=== PATIENT | female | born 1945 | race Caucasian/White ===

== ENCOUNTER 2023-12-08 16:37 | Inpatient (IN) ==
--- NOTE | 2023-12-08 16:48 | ED Triage Note ---
Date of Service December 08, 2023 Provider in Triage Author: Dorothy Mcneil History of Present Illness This patient was briefly evaluated while in triage. An abbreviated physical exam was performed. This patient is a 78-year-old Female who presents to the ED for evaluation of lightheadedness and dizziness. Also having trouble walking by herself because of the symptoms. Symptoms started Friday afternoon. Went to the [facility] on Friday. She said she had blood work, EKG, and a CT scan of her head without contrast that was normal other than an elevated troponin. She was admitted overnight and they wanted to do an MRI, but she has a pacemaker so they couldn't do the MRI. The patient states that she didn't think that she was getting the care she needed so she signed out AMA and came to our ER. They did not do any contrast with the CT. Denies chest pain, SOB, abdominal pain, nausea, or vomiting. Physical Exam GENERAL: Non-toxic and in no acute distress. HEENT: Pupils equal. No obvious scleral icterus. HEART: Regular rate and rhythm. LUNGS: Clear to auscultation. No accessory muscle use. ABDOMEN: Soft, non-tender. NEURO: Alert and oriented. No obvious neurological deficits on quick neuro exam. Initial orders for labs and / or imaging were placed and patient was placed in the waiting area until a bed is available. Please see further documentation for the full ED course. MDM / Impression Impression Impression: Ataxia, Ambulatory dysfunction, Elevated troponin, Lightheadedness
[2023-12-08] MEDS: SODIUM CHLORIDE 0.9% 500 ML IV STA (17:06)
[2023-12-08 17:28] LABS: Basophils # (auto) 0.04 K/uL (0.00-0.20); Basophils % (auto) 0.4 %; Eosinophils # (auto) 0.02 K/uL (0.00-0.50); Eosinophils % (auto) 0.2 %; Hematocrit (blood only) 42.9 % (37.0-47.0); Hemoglobin 14.7 g/dl (12.0-16.0); Immature Granulocytes # (auto) 0.02 K/uL (0.01-0.20); Immature Granulocytes % (auto) 0.2 %; Lymphocytes # (auto) 0.93 K/uL (1.20-3.40); Lymphocytes % (auto) 10.1 %; Mean Corpuscular Hgb Conc 34.3 g/dL (32.0-36.0); Mean Corpuscular Volume 96.2 fL (80.0-100.0); Mean Platelet Volume 11.7 fL (9.4-12.4); Monocytes % (auto) 10.9 %; Neutrophils # (auto) 7.16 K/uL (1.40-6.50); Neutrophils % (auto) 78.2 %; Platelet Count 277 K/uL (130-400); RDW Coefficient of Variation 12.2 % (11.5-14.5); RDW Standard Deviation 43.1 fL (36.4-46.3); Red Blood Count 4.46 M/uL (4.20-5.40); White Blood Count 9.17 K/ul (4.8-10.8)
--- NOTE | 2023-12-08 17:47 | XRay Report ---
XR chest 1V portable CLINICAL HISTORY: Chest pain, nonspecific TECHNIQUE: Single frontal radiograph of the chest was obtained. Comparison: None available at the time of this dictation. FINDINGS: An implanted pacemaker is seen. Cardiomegaly is noted. The lungs are clear. No evidence of pleural ef fusion or pneumothorax. IMPRESSION: No acute chest disease. Cardiomegaly is noted. ACT 112: Negative or not required by law. Electronically signed by: Bowen John M.D. 12/08/2023 5:45 PM
[2023-12-08 17:48] LABS: Alanine Aminotransferase 31 U/L (7-52); Albumin Globulin Ratio 1.2 (0.9-2); Albumin Level 4.3 gm/dl (3.4-5.0); Alkaline Phosphatase 74 U/L (34-104); Anion Gap 10 (3-11); Aspartate Aminotransferase 20 U/L (13-39); BUN Creatinine Ratio 20.6 (10-20); Bilirubin,Total 0.7 mg/dl (0.2-1.0); Blood Urea Nitrogen 13 mg/dl (6-23); Calcium 9.7 mg/dl (8.6-10.3); Carbon Dioxide 29 mmol/L (21-32); Chloride 104 mmol/L (98-107); Est GFR (Non-African American) 87.1 ml/min; Globulin 3.5 gm/dl (2.5-4.0); Glucose 104 mg/dl (70-99(Fasting)); Lipase 27 U/L (11-82); Magnesium 1.8 mg/dl (1.7-2.4); Potassium 3.7 mmol/L (3.5-5.1); Sodium 143 mmol/L (136-145); Total Protein 7.8 gm/dl (6.0-8.3)
[2023-12-08 17:54] LABS: Troponin I High Sensitivity 21.7 pg/ml (0-14)
[2023-12-08 18:04] LABS: Thyroid Stimulating Hormone 2.426 uIu/ml (0.300-4.500)
[2023-12-08 18:06] LABS: Partial Thromboplastin Ratio 1.1; Partial Thromboplastin Time 30 Seconds (21-31)
[2023-12-08] MEDS: OPTIRAY 320 125ml IV ONE (18:33)
--- NOTE | 2023-12-08 18:58 | CT Scan Report ---
CT angio neck with con, CT head/brain wo con, CT angio head w con CLINICAL HISTORY: Dizziness TECHNIQUE: Contiguous axial CT images of the head were acquired from the base of the skull to the mitchell tiana without intravenous contrast administration. CT angiography of the head and neck was performed f ollowing intravenous administration of iodinated contrast. Coronal and sagittal MIPS were obtained fr om the axial data set and were submitted for review. Automated dose lowering techniques and/or adjus tment according to patient size were utilized for this examination. All measurements were calculated based on NASCET criteria. CT DOSE: 873.74 mGy.cm Comparison: None available at the time of this dictation. FINDINGS: CT head: There is no acute intracranial hemorrhage or evidence of acute territorial infarction. No sh ift of the midline structures, mass effect, or extra-axial abnormalities are shown. Small thyroid nodules are seen which do not require follow-up by ACR criteria. Scarring is seen in th e bilateral apices. CTA Neck: A 3 vessel aortic arch is shown. There is no significant atherosclerotic plaque in the aor tic arch or the origins of the innominate, left common carotid, and left subclavian arteries. The co mmon carotid, external carotid, cervical segments of the internal carotid arteries, and the cervical segments of the vertebral arteries are patent without hemodynamically significant stenosis. The left vertebral artery is dominant. Tortuous course of the bilateral carotid arteries noted. CTA Head: The anterior and posterior cerebral circulations are patent. origin of the left post erior cerebral artery is seen. IMPRESSION: 1. No acute intracranial hemorrhage, evidence of acute territorial infarction, or other acute intrac ranial disease process. 2. No occlusion, hemodynamically significant stenosis, or dissection in the major cervical arteries. 3. No occlusion, hemodynamically significant stenosis, aneurysm, dissection, or arteriovenous malfor mation in the major intracranial arteries. Assessment of stenosis of the internal carotid arteries is based on NASCET criteria. ACT 112: Negative or not required by law. Electronically signed by: Bowen John M.D. 12/08/2023 6:56 PM
--- NOTE | 2023-12-08 20:24 | Emergency Department Note ---
Impression & Plan Ataxia, Ambulatory dysfunction, Elevated troponin, Lightheadedness ED Provider Note Name: ROSELINE PEREZ Age: 78 Sex: Female Arrives Via: Walk-In Informant: Patient and friend ED Provider: Edouard Boles MD Chief Complaint: Lightheadedness Impression: As per impressions above Medical Decision Making: Pleasant 78-year-old female arrives for evaluation of ataxia. Patient with essentially 72 hours of symptoms. She been admitted to [facility] for the last 48 hours awaiting an MRI however after not getting it done she left AMA and came to this facility. Patient notes that she has been dealing with difficulty walking straight sudden onset 3 days ago. There is no indication of tPA. She has an NIH of 0 at this time. She is able to ambulate to the bathroom without significant difficulty. No significant chest pain however given symptoms EKG and troponin was obtained. Interestingly troponin was elevated thus repeat was obtained which is further elevated. She is not having any specific chest pain and troponin is not quite to the point where I think we need to start heparin. She was given a full dose aspirin for neuro and cardio protectant measures. She is essentially asymptomatic while at rest and sitting in the bed. Discussed this with hospitalist will bring her in for further management. Fortunately at this time CT of the head is negative and will defer further imaging to hospitalist. I did discuss findings of pacemaker interrogation with Marcial team. Fortunately no evidence of dysrhythmia or acute abnormality at this time to describe her symptoms. Triage/Nursing Notes reviewed by Me Differential:Infection, dehydration, metabolic abnormality, hypo/hyperglycemia, electrolyte disturbance, anemia, hypoxia, cardiac sources, intracerebral event, toxicologic, neurologic, as well as other pathologies. Vital Signs: reviewed and remarkable for mild hypertension on arrival Interventions: Aspirin 324 mg p.o., normal saline bolus Labs:ED labs Reviewed by me and remarkable for elevated troponin Imaging:CT of the head without contrast as per my informal interpretation no evidence of intracranial hemorrhage or mass effect. CT angiography of the head and neck as per radiologist no acute findings. 1 view chest x-ray as per my interpretation no infiltrate, effusion or pneumothorax appreciated. EKG:As per my interpretation. Indication strokelike symptoms. Atrial sensed ventricular rhythm at 83 bpm with QTc 533. No ectopy nor ischemia appreciated. No previous EKG for comparison. Cardiac/Tele Monitoring: Cardiac Monitoring: An Order was placed for continuous cardiac monitoring. The monitor shows a rate of 80 with a paced rhythm. Consults:Dr Francisca Yang Hospitalist consulted who will bring patient in for further management. Discussed with pacemaker team who note no acute abnormality consistent with symptoms patient is having Plan: Disposition:Hospitalization. Condition: Good History of Present Illness: 78-year-old female arrives for evaluation of lightheadedness. Patient notes for the last 3 days she has been having difficulty ambulating straight and feeling lightheaded especially when she stands. Denies any specific chest pain, palpitation, shortness of breath, headache, focal neurologic deficits, urinary symptoms, abdominal pain, back pain or any other concerning signs or symptoms. She states she has been feeling well up until Friday and it was relatively sudden onset. Patient notes she was evaluated at [facility] and hospitalized on Friday afternoon for this. They did give her a dose of meclizine she says it did nothing. She denies any vertiginous symptoms and has not had any spinning vision. Patient notes that she was there until this afternoon awaiting an MRI. Unfortunately they had yet to get the MRI so she left AGAINST MEDICAL ADVICE and came to this facility for further evaluation. Denies any current symptoms other than the persistent lightheadedness and trouble walking in a straight line. Past Medical History:Bradycardia with pacemaker, hypertension, hyperlipidemia. Denies history of stroke or ACS. Home Medications:Metoprolol amongst others Allergies:nkda Vitals:Blood Pressure: 160/75, Pulse 75, RR 18, T 36.7C, O2 98% on RA Physical Exam: GENERAL: Patient is well appearing and in minimal distress. HEENT: AT/NC, normal TMs, normal TM bilateral RESPIRATORY: No dyspnea. Clear to auscultation and equal bilaterally. CARDIOVASCULAR: Regular rate and rhythm.No murmur appreciated. GASTROINTESTINAL: Abdomen soft, non-tender, no peritonitis. EXTREMITIES: Normal motion all extremities, no cyanosis, no edema. NEUROLOGIC: Alert and oriented. No focal neurologic deficits appreciated SKIN: No rash, no jaundice, no diaphoresis. PSYCH: Appropriate GCS: 15 ED Course: Times/Reassessments: Patient stable no further symptoms. She is agreeable to hospitalization for further workup Edouard Boles MD Past Med/Surg History Social History Smoking Status: Never smoker Feels Safe at Home: Yes Allergies Allergies Allergy/AdvReac Type Severity Reaction Status Date / Time No Known Allergies Allergy Verified 12/08/23 16:48 Home Meds Home Medications Medication Instructions Recorded Confirmed calcium 1,000 mg PO DAILY 12/08/23 12/08/23 cholecalciferol (vitamin D3) 50 50 mcg PO DAILY 12/08/23 12/08/23 mcg (2,000 unit) tablet (Vitamin D3) ezetimibe 10 mg tablet (Zetia) 10 mg PO DAILY 12/08/23 12/08/23 ferrous sulfate 325 mg (65 mg 325 mg PO TID 12/08/23 12/08/23 iron) tablet (Iron (ferrous sulfate)) hydrochlorothiazide 12.5 mg tablet 6.25 mg PO DAILY 12/08/23 12/08/23 metoprolol succinate 25 mg 25 mg PO DAILY 12/08/23 12/08/23 tablet,extended release 24 hr rosuvastatin 10 mg tablet 10 mg PO DAILY 12/08/23 12/08/23 upadacitinib 15 mg tablet,extended 15 mg PO DAILY 12/08/23 12/08/23 release 24 hr (Rinvoq) valsartan 320 mg tablet 320 mg PO DAILY 12/08/23 12/08/23 Results & Data (ED) Vital Signs Vital Signs - 24 hr 12/08/23 16:44 12/08/23 20:10 12/08/23 20:10 Temperature 36.7 C Temperature Source Temporal Artery Scan Pulse Rate 81 68 Pulse Rate [Apical] 74 Respiratory Rate 16 17 18 Respiratory Effort / Characteristics Non-Labored Spontaneous Non-Labored Respiratory Depth Normal Normal Respiratory Pattern Regular Blood Pressure 137/83 Blood Pressure [Right Arm] 160/75 H Blood Pressure Mean 101 Blood Pressure Mean [Right Arm] 103 Pulse Oximetry 96 98 98 Oxygen Delivery Method Room Air Room Air Room Air Sepsis Recent Fever Within 48 Hours No Sepsis New/Unexplained Change in Mental Status No Sepsis Action Taken by Nursing No Action Required 12/08/23 20:12 Temperature Temperature Source Pulse Rate 75 Pulse Rate [Apical] Respiratory Rate Respiratory Effort / Characteristics Respiratory Depth Respiratory Pattern Blood Pressure Blood Pressure [Right Arm] Blood Pressure Mean Blood Pressure Mean [Right Arm] Pulse Oximetry Oxygen Delivery Method Sepsis Recent Fever Within 48 Hours Sepsis New/Unexplained Change in Mental Status Sepsis Action Taken by Nursing Laboratory Data 12/08/23 17:00 12/08/23 17:00 Lab Results 12/08/23 12/08/23 12/08/23 Range/Units 17:00 20:14 20:15 WBC 9.17 (4.8-10.8) K/ul RBC 4.46 (4.20-5.40) M/uL Hgb 14.7 (12.0-16.0) g/dl Hct 42.9 (37.0-47.0) % MCV 96.2 (80.0-100.0) fL MCH 33.0 (25.0-34.0) pg MCHC 34.3 (32.0-36.0) g/dL RDW Std Deviation 43.1 (36.4-46.3) fL RDW Coeff of Salud 12.2 (11.5-14.5) % Plt Count 277 (130-400) K/uL MPV 11.7 (9.4-12.4) fL Immature Gran % (Auto) 0.2 % Neut % (Auto) 78.2 % Lymph % (Auto) 10.1 % Mccormick % (Auto) 10.9 % Eos % (Auto) 0.2 % Baso % (Auto) 0.4 % Neut # (Auto) 7.16 H (1.40-6.50) K/uL Lymph # (Auto) 0.93 L (1.20-3.40) K/uL Mccormick # (Auto) 1.00 H (0.11-0.59) K/uL Eos # (Auto) 0.02 (0.00-0.50) K/uL Baso # (Auto) 0.04 (0.00-0.20) K/uL Immature Gran # (Auto) 0.02 (0.01-0.20) K/uL PT 11.0 (9.0-12.0) Seconds INR 1.0 (0.9-1.1) APTT 30 (21-31) Seconds PTT Ratio 1.1 Sodium 143 (136-145) mmol/L Potassium 3.7 (3.5-5.1) mmol/L Chloride 104 (98-107) mmol/L Carbon Dioxide 29 (21-32) mmol/L Anion Gap 10 (3-11) BUN 13 (6-23) mg/dl Creatinine 0.63 (0.6-1.2) mg/dl Est Cr Clr Drug Dosing Not Reportable Est GFR ( Amer) 101.0 ml/min Est GFR (Non-Af Amer) 87.1 ml/min BUN/Creatinine Ratio 20.6 H (10-20) Glucose 104 H (70-99(Fasting)) mg/dl Calcium 9.7 (8.6-10.3) mg/dl Magnesium 1.8 (1.7-2.4) mg/dl Total Bilirubin 0.7 (0.2-1.0) mg/dl AST 20 (13-39) U/L ALT 31 (7-52) U/L Alkaline Phosphatase 74 (34-104) U/L Troponin I High Sens 21.7 H 35.1 H D (0-14) pg/ml Total Protein 7.8 (6.0-8.3) gm/dl Albumin 4.3 (3.4-5.0) gm/dl Globulin 3.5 (2.5-4.0) gm/dl Albumin/Globulin Ratio 1.2 (0.9-2) Lipase 27 (11-82) U/L TSH 2.426 (0.300-4.500) uIu/ml Urine Color Yellow Urine Appearance Clear (Clear) Urine pH 5.5 (4.5-7.5) Ur Specific [place] > 1.045 H (1.000-1.030) Urine Protein Negative (Negative) Urine Glucose (UA) Negative (Negative) Urine Ketones Trace H (Negative) Urine Blood Negative (Negative) Urine Nitrite Negative (Negative) Urine Bilirubin Negative (Negative) Urine Urobilinogen Negative (Negative) Ur Leukocyte Esterase 1+ H (Negative) Urine WBC (Auto) 10-30 H (0-5) /hpf Urine RBC (Auto) 0-4 (0-4) /hpf U Hyaline Cast (Auto) 0 (0-5) /lpf U Epithel Cells (Auto) >30 H (0-5) /lpf Urine Bacteria (Auto) Negative (Negative) Administered Medications Sodium Chloride (Nss) 1,000 mls @ 75 mls/hr IV .[id number] Stop: 12/09/23 12:10 Last Admin: 12/08/23 23:45 Dose: 75 mls/hr Documented By: TJS Discontinued Medications Aspirin (Aspirin Chew 324 Mg) 324 mg PO NOW STA Stop: 12/08/23 20:20 Last Admin: 12/08/23 20:35 Dose: 324 mg Documented By: VIOLET Sodium Chloride (Nss) 500 mls @ 999 mls/hr IV .Q31M STA Stop: 12/08/23 17:19 Last Infusion: 12/08/23 20:13 Dose: Infused Documented By: Admin: 12/08/23 17:06 Dose: 999 mls/hr Documented By: LENY Sodium Chloride (Nss) 500 mls @ 999 mls/hr IV .Q31M ONE Stop: 12/08/23 20:49 Last Infusion: 12/08/23 21:09 Dose: Infused Documented By: Admin: 12/08/23 20:34 Dose: 999 mls/hr Documented By: VIOLET Ioversol (Optiray 320 125ml) 117 ml IV ONCE ONE Stop: 12/08/23 18:34 Last Admin: 12/08/23 18:33 Dose: 117 ml Documented By: JOSE RAFAEL Imaging Data Radiologist's Impression: Chest X-Ray 12/08/23 16:49 XR chest 1V portable CLINICAL HISTORY: Chest pain, nonspecific TECHNIQUE: Single frontal radiograph of the chest was obtained. Comparison: None available at the time of this dictation. FINDINGS: An implanted pacemaker is seen. Cardiomegaly is noted. The lungs are clear. No evidence of pleural effusion or pneumothorax. IMPRESSION: No acute chest disease. Cardiomegaly is noted. ACT 112: Negative or not required by law. Electronically signed by: Bowen John M.D. 12/08/2023 5:[address] 12/08/23 16:49 CT angio neck with con, CT head/brain wo con, CT angio head w con CLINICAL HISTORY: Dizziness TECHNIQUE: Contiguous axial CT images of the head were acquired from the base of the skull to the vertex without intravenous contrast administration. CT angiography of the head and neck was performed following intravenous administration of iodinated contrast. Coronal and sagittal MIPS were obtained from the axial data set and were submitted for review. Automated dose lowering techniques and/or adjustment according to patient size were utilized for this examination. All measurements were calculated based on NASCET criteria. CT DOSE: 873.74 mGy.cm Comparison: None available at the time of this dictation. FINDINGS: CT head: There is no acute intracranial hemorrhage or evidence of acute territorial infarction. No shift of the midline structures, mass effect, or extra-axial abnormalities are shown. Small thyroid nodules are seen which do not require follow-up by ACR criteria. Scarring is seen in the bilateral apices. CTA Neck: A 3 vessel aortic arch is shown. There is no significant atherosclerotic plaque in the aortic arch or the origins of the innominate, left common carotid, and left subclavian arteries. The common carotid, external carotid, cervical segments of the internal carotid arteries, and the cervical segments of the vertebral arteries are patent without hemodynamically significant stenosis. The left vertebral artery is dominant. Tortuous course of the bilateral carotid arteries noted. CTA Head: The anterior and posterior cerebral circulations are patent. origin of the left posterior cerebral artery is seen. IMPRESSION: 1. No acute intracranial hemorrhage, evidence of acute territorial infarction, or other acute intracranial disease process. 2. No occlusion, hemodynamically significant stenosis, or dissection in the major cervical arteries. 3. No occlusion, hemodynamically significant stenosis, aneurysm, dissection, or arteriovenous malformation in the major intracranial arteries. Assessment of stenosis of the internal carotid arteries is based on NASCET criteria. ACT 112: Negative or not required by law. Electronically signed by: Bowen John M.D. 12/08/2023 6:56 PM Head CTA 12/08/23 16:49 CT angio neck with con, CT head/brain wo con, CT angio head w con CLINICAL HISTORY: Dizziness TECHNIQUE: Contiguous axial CT images of the head were acquired from the base of the skull to the vertex without intravenous contrast administration. CT angiography of the head and neck was performed following intravenous administration of iodinated contrast. Coronal and sagittal MIPS were obtained from the axial data set and were submitted for review. Automated dose lowering techniques and/or adjustment according to patient size were utilized for this examination. All measurements were calculated based on NASCET criteria. CT DOSE: 873.74 mGy.cm Comparison: None available at the time of this dictation. FINDINGS: CT head: There is no acute intracranial hemorrhage or evidence of acute territorial infarction. No shift of the midline structures, mass effect, or extra-axial abnormalities are shown. Small thyroid nodules are seen which do not require follow-up by ACR criteria. Scarring is seen in the bilateral apices. CTA Neck: A 3 vessel aortic arch is shown. There is no significant atherosclerotic plaque in the aortic arch or the origins of the innominate, left common carotid, and left subclavian arteries. The common carotid, external carotid, cervical segments of the internal carotid arteries, and the cervical segments of the vertebral arteries are patent without hemodynamically significant stenosis. The left vertebral artery is dominant. Tortuous course of the bilateral carotid arteries noted. CTA Head: The anterior and posterior cerebral circulations are patent. origin of the left posterior cerebral artery is seen. IMPRESSION: 1. No acute intracranial hemorrhage, evidence of acute territorial infarction, or other acute intracranial disease process. 2. No occlusion, hemodynamically significant stenosis, or dissection in the major cervical arteries. 3. No occlusion, hemodynamically significant stenosis, aneurysm, dissection, or arteriovenous malformation in the major intracranial arteries. Assessment of stenosis of the internal carotid arteries is based on NASCET criteria. ACT 112: Negative or not required by law. Electronically signed by: Bowen John M.D. 12/08/2023 6:56 PM Neck CTA 12/08/23 16:49 CT angio neck with con, CT head/brain wo con, CT angio head w con CLINICAL HISTORY: Dizziness TECHNIQUE: Contiguous axial CT images of the head were acquired from the base of the skull to the vertex without intravenous contrast administration. CT angiography of the head and neck was performed following intravenous administration of iodinated contrast. Coronal and sagittal MIPS were obtained from the axial data set and were submitted for review. Automated dose lowering techniques and/or adjustment according to patient size were utilized for this examination. All measurements were calculated based on NASCET criteria. CT DOSE: 873.74 mGy.cm Comparison: None available at the time of this dictation. FINDINGS: CT head: There is no acute intracranial hemorrhage or evidence of acute territorial infarction. No shift of the midline structures, mass effect, or extra-axial abnormalities are shown. Small thyroid nodules are seen which do not require follow-up by ACR criteria. Scarring is seen in the bilateral apices. CTA Neck: A 3 vessel aortic arch is shown. There is no significant atherosclerotic plaque in the aortic arch or the origins of the innominate, left common carotid, and left subclavian arteries. The common carotid, external carotid, cervical segments of the internal carotid arteries, and the cervical segments of the vertebral arteries are patent without hemodynamically significant stenosis. The left vertebral artery is dominant. Tortuous course of the bilateral carotid arteries noted. CTA Head: The anterior and posterior cerebral circulations are patent. origin of the left posterior cerebral artery is seen. IMPRESSION: 1. No acute intracranial hemorrhage, evidence of acute territorial infarction, or other acute intracranial disease process. 2. No occlusion, hemodynamically significant stenosis, or dissection in the major cervical arteries. 3. No occlusion, hemodynamically significant stenosis, aneurysm, dissection, or arteriovenous malformation in the major intracranial arteries. Assessment of stenosis of the internal carotid arteries is based on NASCET criteria. ACT 112: Negative or not required by law. Electronically signed by: Bowen John M.D. 12/08/2023 6:56 PM Discharge Plan Visit Data Chief Complaint: Nausea Stated Complaint: LIGHT HEADED ED Provider: Edouard Boles Discharge Problem: Ataxia, Ambulatory dysfunction, Elevated troponin, Lightheadedness Discharge Instructions Interventions: ED Discharge Assessment Last Done: 12/08/23 22:52
[2023-12-08] MEDS: SODIUM CHLORIDE 0.9% 500 ML IV ONE (20:34)
[2023-12-08] MEDS: ASPIRIN CHEW 324 MG PO STA (20:35)
[2023-12-08 20:36] LABS: Appearance Urine Clear (Clear); Bacteria Urine Automated Negative (Negative); Bilirubin Urine Negative (Negative); Blood Urine Negative (Negative); Cast Urine Automated 0 /lpf (0-5); Color Urine Yellow; Epithelial Cell Urine Auto >30 /lpf (0-5); Glucose Urine UA Negative (Negative); Ketones Urine Trace (Negative); Leukocyte Esterase Urine 1+ (Negative); Nitrite Urine Negative (Negative); Protein Urine Negative (Negative); RBC Urine Automated 0-4 /hpf (0-4); Specific Gravity Urine > 1.045 (1.000-1.030); Urobilinogen Urine Negative (Negative); pH Urine 5.5 (4.5-7.5)
--- NOTE | 2023-12-08 22:09 | History & Physical Report ---
Date of Service December 08, 2023 Assessment & Plan (1) Stroke-like symptoms: Plan: 78-year-old female with past med history significant for hyperlipidemia, vasculitis, hypertension, history of second-degree heart block s/p pacemaker, aortic valve disorder, obesity, carpal tunnel syndrome, rheumatoid arthritis involving multiple sites with positive rheumatoid factor, comes because of lightheadedness and ambulatory dysfunction since last Friday. She used to ambu late without support prior to the episode. Now she feels little imbalance and is requiring assistance. She went to [facility] on last Friday. She was given meclizine but did not help much. There is a plan for MRI scan. But as MRI was not done still she signed out AMA today afternoon at [place] and came here. Denies any headache. No blurred visions. No earache. No runny nose or sore throat. No cough. No recent fevers. No difficulty swallowing. No chest pain or shortness of breath. No nausea. No abdominal pain. Normal bowel and bladder movements. Currently resting comfortably and hemodynamic stable. Strokelike symptoms Lightheadedness and ambulatory dysfunction CT head, CTA head and neck unremarkable Patient has pacemaker not sure if MRI compatible MRI ordered Stroke protocol Neuroconsult in a.m. Hyperlipidemia On Zetia and statin Hypertension On valsartan and hydrochlorothiazide Will monitor History of secondary heart block S/p pacemaker History of rheumatoid arthritis involving multiple sites with positive rheumatoid factor on rinvoq DVT prophylaxis SCDs for now Disposition Telemetry Full code History of Present Illness Chief Complaint: Lightheadedness and ambulatory dysfunction Primary Care Provider: NO PCP 78-year-old female with past med history significant for hyperlipidemia, vasculitis, hypertension, history of second-degree heart block s/p pacemaker, aortic valve disorder, obesity, carpal tunnel syndrome, rheumatoid arthritis involving multiple sites with positive rheumatoid factor, comes because of lightheadedness and ambulatory dysfunction since last Friday. She used to ambulate without support prior to the episode. Now she feels little imbalance and is requiring assistance. She went to [facility] on last Friday. She was given meclizine but did not help much. There is a plan for MRI scan. But as MRI was not done still she signed out AMA today afternoon at [place] and came here. Denies any headache. No blurred visions. No earache. No runny nose or sore throat. No cough. No recent fevers. No difficulty swallowing. No chest pain or shortness of breath. No nausea. No abdominal pain. Normal bowel and bladder movements. Currently resting comfortably and hemodynamic stable. Past medical history. As mentioned above. Past surgical history. Arthrocentesis. Right carpal tunnel surgery. S/p pacemaker. Partial hysterectomy. Social history. . No smoking. No alcohol use. No drug use. Family history. Maternal cousin had breast cancer. Father had CAD. Mother had CAD. Allergies Allergy/AdvReac Type Severity Reaction Status Date / Time No Known Allergies Allergy Verified 12/08/23 16:48 Home Medications Medication Instructions Recorded Confirmed Type calcium 1,000 mg PO DAILY 12/08/23 12/08/23 History cholecalciferol (vitamin D3) 50 50 mcg PO DAILY 12/08/23 12/08/23 History mcg (2,000 unit) tablet (Vitamin D3) ezetimibe 10 mg tablet (Zetia) 10 mg PO DAILY 12/08/23 12/08/23 History ferrous sulfate 325 mg (65 mg 325 mg PO TID 12/08/23 12/08/23 History iron) tablet (Iron (ferrous sulfate)) hydrochlorothiazide 12.5 mg tablet 6.25 mg PO DAILY 12/08/23 12/08/23 History metoprolol succinate 25 mg 25 mg PO DAILY 12/08/23 12/08/23 History tablet,extended release 24 hr rosuvastatin 10 mg tablet 10 mg PO DAILY 12/08/23 12/08/23 History upadacitinib 15 mg tablet,extended 15 mg PO DAILY 12/08/23 12/08/23 History release 24 hr (Rinvoq) valsartan 320 mg tablet 320 mg PO DAILY 12/08/23 12/08/23 History Past Med/Surg History Social History Smoking Status: Never smoker Feels Safe at Home: Yes Review of Systems Review of Systems: All systems reviewed & are unremarkable except as noted in HPI & below Physical Exam Physical Exam: General- Not in distress Head- atraumatic Eyes- PERRL. ENT- oropharynx clear Neck- supple, no JVD. Lungs- clear to auscultation no wheezing or crackles. Heart- regular rhythm; no murmur, no gallop. Abdomen- normal bowel sounds, soft, nontender, no distension Extremities- no pretibial edema, no erythema seen Neuro- alert, oriented PERRL, ; no facial palsy; no dysarthria; motor 5/5 bilaterally; coordination of movements normal, no pronator drift, sensations intact, position sense intact. Skin- warm & dry Results & Data Results & Data Vital Signs (Past 12 Hours) Vital Signs Temp Pulse Pulse Resp BP BP Pulse Ox 12/08/23 20:12 75 12/08/23 20:10 68 18 98 12/08/23 20:10 74 17 160/75 H 98 12/08/23 16:44 36.7 C 81 16 137/83 96 O2 Del Method 12/08/23 20:12 12/08/23 20:10 Room Air 12/08/23 20:10 Room Air 12/08/23 16:44 Room Air Diagnostic Findings Laboratory Results WBC 9.17 K/ul (4.8-10.8) 12/08/23 17:00 RBC 4.46 M/uL (4.20-5.40) 12/08/23 17:00 Hgb 14.7 g/dl (12.0-16.0) 12/08/23 17:00 Hct 42.9 % (37.0-47.0) 12/08/23 17:00 MCV 96.2 fL (80.0-100.0) 12/08/23 17:00 MCH 33.0 pg (25.0-34.0) 12/08/23 17:00 MCHC 34.3 g/dL (32.0-36.0) 12/08/23 17:00 RDW Std Deviation 43.1 fL (36.4-46.3) 12/08/23 17:00 RDW Coeff of Salud 12.2 % (11.5-14.5) 12/08/23 17:00 Plt Count 277 K/uL (130-400) 12/08/23 17:00 MPV 11.7 fL (9.4-12.4) 12/08/23 17:00 Immature Gran % (Auto) 0.2 % 12/08/23 17:00 Neut % (Auto) 78.2 % 12/08/23 17:00 Lymph % (Auto) 10.1 % 12/08/23 17:00 Mower % (Auto) 10.9 % 12/08/23 17:00 Eos % (Auto) 0.2 % 12/08/23 17:00 Baso % (Auto) 0.4 % 12/08/23 17:00 Neut # (Auto) 7.16 K/uL (1.40-6.50) H 12/08/23 17:00 Lymph # (Auto) 0.93 K/uL (1.20-3.40) L 12/08/23 17:00 Mower # (Auto) 1.00 K/uL (0.11-0.59) H 12/08/23 17:00 Eos # (Auto) 0.02 K/uL (0.00-0.50) 12/08/23 17:00 Baso # (Auto) 0.04 K/uL (0.00-0.20) 12/08/23 17:00 Immature Gran # (Auto) 0.02 K/uL (0.01-0.20) 12/08/23 17:00 PT 11.0 Seconds (9.0-12.0) 12/08/23 17:00 INR 1.0 (0.9-1.1) 12/08/23 17:00 APTT 30 Seconds (21-31) 12/08/23 17:00 PTT Ratio 1.1 12/08/23 17:00 Sodium 143 mmol/L (136-145) 12/08/23 17:00 Potassium 3.7 mmol/L (3.5-5.1) 12/08/23 17:00 Chloride 104 mmol/L (98-107) 12/08/23 17:00 Carbon Dioxide 29 mmol/L (21-32) 12/08/23 17:00 Anion Gap 10 (3-11) 12/08/23 17:00 BUN 13 mg/dl (6-23) 12/08/23 17:00 Creatinine 0.63 mg/dl (0.6-1.2) 12/08/23 17:00 Est Cr Clr Drug Dosing Not Reportable 12/08/23 17:00 Est GFR ( Amer) 101.0 ml/min 12/08/23 17:00 Est GFR (Non-Af Amer) 87.1 ml/min 12/08/23 17:00 BUN/Creatinine Ratio 20.6 (10-20) H 12/08/23 17:00 Glucose 104 mg/dl (70-99(Fasting)) H 12/08/23 17:00 Calcium 9.7 mg/dl (8.6-10.3) 12/08/23 17:00 Magnesium 1.8 mg/dl (1.7-2.4) 12/08/23 17:00 Total Bilirubin 0.7 mg/dl (0.2-1.0) 12/08/23 17:00 AST 20 U/L (13-39) 12/08/23 17:00 ALT 31 U/L (7-52) 12/08/23 17:00 Alkaline Phosphatase 74 U/L (34-104) 12/08/23 17:00 Troponin I High Sens 35.1 pg/ml (0-14) H D 12/08/23 20:15 Total Protein 7.8 gm/dl (6.0-8.3) 12/08/23 17:00 Albumin 4.3 gm/dl (3.4-5.0) 12/08/23 17:00 Globulin 3.5 gm/dl (2.5-4.0) 12/08/23 17:00 Albumin/Globulin Ratio 1.2 (0.9-2) 12/08/23 17:00 Lipase 27 U/L (11-82) 12/08/23 17:00 TSH 2.426 uIu/ml (0.300-4.500) 12/08/23 17:00 Urine Color Yellow 12/08/23 20:14 Urine Appearance Clear (Clear) 12/08/23 20:14 Urine pH 5.5 (4.5-7.5) 12/08/23 20:14 Ur Specific [place] > 1.045 (1.000-1.030) H 12/08/23 20:14 Urine Protein Negative (Negative) 12/08/23 20:14 Urine Glucose (UA) Negative (Negative) 12/08/23 20:14 Urine Ketones Trace (Negative) H 12/08/23 20:14 Urine Blood Negative (Negative) 12/08/23 20:14 Urine Nitrite Negative (Negative) 12/08/23 20:14 Urine Bilirubin Negative (Negative) 12/08/23 20:14 Urine Urobilinogen Negative (Negative) 12/08/23 20:14 Ur Leukocyte Esterase 1+ (Negative) H 12/08/23 20:14 Urine WBC (Auto) 10-30 /hpf (0-5) H 12/08/23 20:14 Urine RBC (Auto) 0-4 /hpf (0-4) 12/08/23 20:14 U Hyaline Cast (Auto) 0 /lpf (0-5) 12/08/23 20:14 U Epithel Cells (Auto) >30 /lpf (0-5) H 12/08/23 20:14 Urine Bacteria (Auto) Negative (Negative) 12/08/23 20:14 Impressions Chest X-Ray 12/08/23 16:49 XR chest 1V portable CLINICAL HISTORY: Chest pain, nonspecific TECHNIQUE: Single frontal radiograph of the chest was obtained. Comparison: None available at the time of this dictation. FINDINGS: An implanted pacemaker is seen. Cardiomegaly is noted. The lungs are clear. No evidence of pleural effusion or pneumothorax. IMPRESSION: No acute chest disease. Cardiomegaly is noted. ACT 112: Negative or not required by law. Electronically signed by: Bowen John M.D. 12/08/2023 5:[address] 12/08/23 16:49 CT angio neck with con, CT head/brain wo con, CT angio head w con CLINICAL HISTORY: Dizziness TECHNIQUE: Contiguous axial CT images of the head were acquired from the base of the skull to the vertex without intravenous contrast administration. CT angiography of the head and neck was performed following intravenous administration of iodinated contrast. Coronal and sagittal MIPS were obtained from the axial data set and were submitted for review. Automated dose lowering techniques and/or adjustment according to patient size were utilized for this examination. All measurements were calculated based on NASCET criteria. CT DOSE: 873.74 mGy.cm Comparison: None available at the time of this dictation. FINDINGS: CT head: There is no acute intracranial hemorrhage or evidence of acute territorial infarction. No shift of the midline structures, mass effect, or extra-axial abnormalities are shown. Small thyroid nodules are seen which do not require follow-up by ACR criteria. Scarring is seen in the bilateral apices. CTA Neck: A 3 vessel aortic arch is shown. There is no significant atherosclerotic plaque in the aortic arch or the origins of the innominate, left common carotid, and left subclavian arteries. The common carotid, external carotid, cervical segments of the internal carotid arteries, and the cervical segments of the vertebral arteries are patent without hemodynamically sign ificant stenosis. The left vertebral artery is dominant. Tortuous course of the bilateral carotid arteries noted. CTA Head: The anterior and posterior cerebral circulations are patent. origin of the left posterior cerebral artery is seen. IMPRESSION: 1. No acute intracranial hemorrhage, evidence of acute territorial infarction, or other acute intracranial disease process. 2. No occlusion, hemodynamically significant stenosis, or dissection in the major cervical arteries. 3. No occlusion, hemodynamically significant stenosis, aneurysm, dissection, or arteriovenous malformation in the major intracranial arteries. Assessment of stenosis of the internal carotid arteries is based on NASCET criteria. ACT 112: Negative or not required by law. Electronically signed by: Bowen John M.D. 12/08/2023 6:56 PM Head CTA 12/08/23 16:49 CT angio neck with con, CT head/brain wo con, CT angio head w con CLINICAL HISTORY: Dizziness TECHNIQUE: Contiguous axial CT images of the head were acquired from the base of the skull to the vertex without intravenous contrast administration. CT angiography of the head and neck was performed following intravenous administration of iodinated contrast. Coronal and sagittal MIPS were obtained from the axial data set and were submitted for review. Automated dose lowering techniques and/or adjustment according to patient size were utilized for this examination. All measurements were calculated based on NASCET criteria. CT DOSE: 873.74 mGy.cm Comparison: None available at the time of this dictation. FINDINGS: CT head: There is no acute intracranial hemorrhage or evidence of acute territorial infarction. No shift of the midline structures, mass effect, or extra-axial abnormalities are shown. Small thyroid nodules are seen which do not require follow-up by ACR criteria. Scarring is seen in the bilateral apices. CTA Neck: A 3 vessel aortic arch is shown. There is no significant ath erosclerotic plaque in the aortic arch or the origins of the innominate, left common carotid, and left subclavian arteries. The common carotid, external carotid, cervical segments of the internal carotid arteries, and the cervical segments of the vertebral arteries are patent without hemodynamically significant stenosis. The left vertebral artery is dominant. Tortuous course of the bilateral carotid arteries noted. CTA Head: The anterior and posterior cerebral circulations are patent. origin of the left posterior cerebral artery is seen. IMPRESSION: 1. No acute intracranial hemorrhage, evidence of acute territorial infarction, or other acute intracranial disease process. 2. No occlusion, hemodynamically significant stenosis, or dissection in the major cervical arteries. 3. No occlusion, hemodynamically significant stenosis, aneurysm, dissection, or arteriovenous malformation in the major intracranial arteries. Assessment of stenosis of the internal carotid arteries is based on NASCET criteria. ACT 112: Negative or not required by law. Electronically signed by: Bowen John M.D. 12/08/2023 6:56 PM Neck CTA 12/08/23 16:49 CT angio neck with con, CT head/brain wo con, CT angio head w con CLINICAL HISTORY: Dizziness TECHNIQUE: Contiguous axial CT images of the head were acquired from the base of the skull to the vertex without intravenous contrast administration. CT angiography of the head and neck was performed following intravenous administration of iodinated contrast. Coronal and sagittal MIPS were obtained from the axial data set and were submitted for review. Automated dose lowering techniques and/or adjustment according to patient size were utilized for this examination. All measurements were calculated based on NASCET criteria. CT DOSE: 873.74 mGy.cm Comparison: None available at the time of this dictation. FINDINGS: CT head: There is no acute intracranial hemorrhage or evidence of acute ter ritorial infarction. No shift of the midline structures, mass effect, or extra- axial abnormalities are shown. Small thyroid nodules are seen which do not require follow-up by ACR criteria. Scarring is seen in the bilateral apices. CTA Neck: A 3 vessel aortic arch is shown. There is no significant atherosclerotic plaque in the aortic arch or the origins of the innominate, left common carotid, and left subclavian arteries. The common carotid, external carotid, cervical segments of the internal carotid arteries, and the cervical segments of the vertebral arteries are patent without hemodynamically significant stenosis. The left vertebral artery is dominant. Tortuous course of the bilateral carotid arteries noted. CTA Head: The anterior and posterior cerebral circulations are patent. origin of the left posterior cerebral artery is seen. IMPRESSION: 1. No acute intracranial hemorrhage, evidence of acute territorial infarction, or other acute intracranial disease process. 2. No occlusion, hemodynamically significant stenosis, or dissection in the major cervical arteries. 3. No occlusion, hemodynamically significant stenosis, aneurysm, dissection, or arteriovenous malformation in the major intracranial arteries. Assessment of stenosis of the internal carotid arteries is based on NASCET criteria. ACT 112: Negative or not required by law. Electronically signed by: Bowen John M.D. 12/08/2023 6:56 PM ECG Additional Comments: ECG. Atrial sensed ventricular paced rhythm with prolonged AV conduction at a rate of 83. Code Status & VTE Plan VTE Prophylaxis Plan VTE Prophylaxis will be ordered: Yes
[2023-12-08] MEDS ORDERED: NITROGLYCERIN SL 0.4 MG/TAB TAB SL PRN (22:51)
[2023-12-08] MEDS ORDERED: ACETAMINOPHEN 325 MG TAB PO PRN (22:51)
[2023-12-08] MEDS ORDERED: PHARMACIST DISCHARGE MED REC CONSULT PRN (22:51)
[2023-12-08] MEDS ORDERED: POLYETHYLENE (MIRALAX) 17 GM PACK PO PRN (22:51)
[2023-12-08] MEDS: SODIUM CHLORIDE 0.9% 1,000 ML IV SCH (23:45)
[2023-12-09 04:25] LABS: Basophils # (auto) 0.02 K/uL (0.00-0.20); Basophils % (auto) 0.3 %; Eosinophils # (auto) 0.05 K/uL (0.00-0.50); Eosinophils % (auto) 0.7 %; Hemoglobin 12.3 g/dl (12.0-16.0); Immature Granulocytes # (auto) 0.02 K/uL (0.01-0.20); Immature Granulocytes % (auto) 0.3 %; Lymphocytes # (auto) 0.91 K/uL (1.20-3.40); Lymphocytes % (auto) 12.8 %; Mean Corpuscular Hemoglobin 33.2 pg (25.0-34.0); Mean Corpuscular Hgb Conc 34.2 g/dL (32.0-36.0); Mean Corpuscular Volume 97.3 fL (80.0-100.0); Mean Platelet Volume 11.4 fL (9.4-12.4); Monocytes # (auto) 0.78 K/uL (0.11-0.59); Monocytes % (auto) 10.9 %; Neutrophils # (auto) 5.35 K/uL (1.40-6.50); Platelet Count 212 K/uL (130-400); RDW Coefficient of Variation 12.2 % (11.5-14.5); RDW Standard Deviation 43.6 fL (36.4-46.3); White Blood Count 7.13 K/ul (4.8-10.8)
[2023-12-09 04:41] LABS: BUN Creatinine Ratio 19.3 (10-20); Calcium 8.4 mg/dl (8.6-10.3); Chol HDL Ratio 2.2 (0-5); Creatinine Clr Calc Pharmacy 80.2 ml/min; Est GFR (African American) 104.4 ml/min; Potassium 3.2 mmol/L (3.5-5.1)
--- OUTSIDE RECORDS SUMMARY | 2023-12-09 06:21 | External Medical Summary | Summary of Care ---
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 0 Active Ferrous Sulfate (IRON) 325 (65 Fe) MG TABS Take 1 Tablet by mouth in the morning and 1 Tablet at noon and 1 Tablet before bedtime. 0 Active Calcium 500 MG Oral Tablet Take 2 Tablets by mouth in the morning. 0 Active Rinvoq 15 MG Oral Tablet Extended Release 24 Hour (Upadacitinib ER) Take by mouth daily. 0 Active Valsartan 320 MG Oral Tablet (Diovan)Indications:E ssential hypertension Take 1 Tablet by mouth in the morning. 90 Tablet 1 06/20/2023 Active hydroCHLOROthiazide 12.5 MG Oral Tablet (Hydrodiuril)Indicati ons:Essential hypertension Take 0.5 Tablets by mouth in the morning. 45 Tablet 3 06/20/2023 Active Ezetimibe 10 MG Oral Tablet (Zetia)Indications:Ot her hyperlipidemia Take 1 Tablet by mouth in the morning. 90 Tablet 3 07/03/2023 Active Vitamin D (Cholecalciferol) 25 MCG (1000 UT) Oral Tablet Take by mouth. 0 Active Rosuvastatin Calcium 10 MG Oral Tablet (Crestor)Indications: Hyperlipidemia with target LDL less than 100 Take 1 Tablet by mouth in the morning. 90 Tablet 1 09/17/2023 Active Gabapentin 300 MG Oral Capsule (Neurontin)Indication s:Herpes zoster with other complication,Acute neuritis Taking 1 capsule in the morning, 1 capsule in the afternoon, and 2 capsules at bedtime 360 Capsule 3 09/22/2023 Active Metoprolol Succinate ER 25 MG Oral Tablet Extended Release 24 Hour (toPROL XL) TAKE ONE TABLET BY MOUTH EVERY MORNING 90 Tablet 3 09/24/2023 Active documented as of this encounter (statuses as of 10/24/2023) Active Problems Problem Noted Date Diagnosed Date Severe obesity with body mas s index (BMI) of 35.0 to 39.9 with serious comorbidity 11/26/2021 Carpal tunnel syndrome 09/23/2019 Aortic valve disorder 02/24/2019 Rheumatoid arthritis involvi ng multiple sites with positive rheumatoid factor 10/23/2018 Cardiac pacemaker in situ 11/10/2017 HTN (hypertension) 09/25/2017 Vitamin D deficiency 09/25/2017 Osteochondropathy 09/25/2017 Hyperlipidemia History of second degree heart block 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 documented as of this encounter (statuses as of 10/24/2023) Resolved Problems Problem Noted Date Diagnosed Date Resolved Date Other hyperlipidemia 09/23/2019 020 Encounter for long-term (cur rent) use of medications 10/23/2018 09/23/2019 Encounter for examination fo r normal comparison and control in clinical research program 08/24/2018 04/10/2020 Overview: DO NOT DELETE [email or web address] DETECT Study: Project # [id number], Pottery Kiln Builder: Cole Perez, PhD. SUMMARY: Goal: Establish test characteristics (sensitivity, specificity, PPV, NPV) of a circulating tumor DNA (ctDNA)-based test for cancer. Hypothesis: Circulating tumor DNA (ctDNA) and elevated protein biomarkers (together, the marker panel) can be detected in asymptomatic individuals with early cancer. Specific Aim 1: Determine the prevalence of a positive marker panel test in a prospective clinical cohort of 10,000 asymptomatic women ages 65 to 75 years. Specific Aim 2: Determine the sensitivity, specificity, positive predictive value (PPV) and negative predictive value (NPV) of a marker panel test to identify histologically proven cancers that develop within 5-years of the marker panel evaluation. CONTACTS: During normal business hours, contact study staff at ; after hours Pottery Kiln Builder via the [facility] small parts shaper operator . Please contact study team before resolving/deleting from patients problem list. Study phone number: [phone]. Diagnosis changed due to Research Module. Go to Snapshot for study details. Encounter for examination fo r normal comparison and control in clinical research program 08/24/2018 05/09/2022 Overview: DO NOT DELETE - [facility] Study: Project # [id number], Pottery Kiln Builder: Jass Felix, MS, MPH. SUMMARY: Goal: Establish test characteristics (sensitivity, specificity, PPV, NPV) of a circulating tumor DNA (ctDNA)-based test for cancer. - Hypothesis: Circulating tumor DNA (ctDNA) and elevated protein biomarkers (together, the marker panel) can be detected in asymptomatic individuals with early cancer. - Specific Aim 1: Determine the prevalence of a positive marker panel test in a prospective clinical cohort of 10,000 asymptomatic women ages 65 to 75 years. - Specific Aim 2: Determine the sensitivity, specificity, positive predictive value (PPV) and negative predictive value (NPV) of a marker panel test to identify histologically proven cancers that develop within 5-years of the marker panel evaluation. - CONTACTS: During normal business hours, contact study staff at ; after hours Pottery Kiln Builder via the [facility] small parts shaper operator . - Please contact study team before resolving/deleting from patients problem list. Study phone number: [phone]. Diagnosis changed due to Research Module. Go to Snapshot for study details. Mild protein-calorie malnutrition 08/21/2018 11/24/2020 Pure hypercholesterolemia 09/25/2017 Second degree AV block 09/25/201703/06 Overview: GERDA Keenan 08/19/17 Carpal tunnel syndrome 02/29/201603/06 Hypertension 03/06/2018 documented as of this encounter (statuses as of 10/24/2023) Immunizations No known immunizationsdocumented as of this encounter Social History Tobacco Use Types Packs/Day Years Used Date Smoking Tobacco: Never Smokeless Tobacco: Never Alcohol Use Standard Drinks/Week Comments No 0 (1 standard drink = 0.6 oz pur e alcohol) PHQ-2 Answer Date Recorded PHQ Adult Total Score 1 07/03/2023 Hunger Vital Sign Answer Date Recorded Within the past 12 months, y ou worried that your food would run out before you got the money to buy more. Never true 07/03/20 23 Within the past 12 months, t he food you bought just didn't last and you didn't have money to get more. Never true 07/03/2023 Sex and Gender Information Value Date Recorded Sex Assigned at Female 07/03/2023 11:18 AM EDT Gender Identity Female 07/03/2023 11:18 AM EDT Sexual Orientation Straight 07/03/2023 11 :18 AM EDT Job Start Date Occupation Industry Not on file Not on file Not on file documented as of this encounter Plan of Treatment Upcoming Encounters Date Type Department Care Team (Late st Contact Info) Description 11/26/2023 7:40 AM EDT Office Visit Family Practice [address] [place] [address] Elizabeth Winters DO [address] [place] [address] 01/14/2024 10:00 AM EDT Office Visit Cardiology, [facility] [address] [facility] [place] [address] Shreyas Jackson PA-C [address] [place] [address] 04/20/2024 10:00 AM EDT Office Visit Family Practice [address], [place] [address] [place] [address] Sukh Robin PA-C [address] [place] [address] 07/08/2024 10:00 AM EDT Nurse Only Ancillary [address], [place] [address] [place] [address] [place], Nurse Annual Wellness Cold [address] [place] [address] 10/13/2024 9:00 AM EST Cardiac Studies Cardiology [facility] [address] [facility] [place] [address] [facility] Pacer [facility] [address] [facility] [place] [address] Pending Results Name Type Priority Associated Diagnoses Date /Time CRP (INFLAMMATORY MARKER) Lab Routine Rheumatoid arthritis involving multiple sites with positive rheumatoid factor (HCC) 10/24/2023 12:41 PM EST ERYTHROCYTE SEDIMENTATION RATE (ESR) Lab Routine Rheumatoid arthritis involving multiple sites with positive rheumatoid factor (HCC) 10/24/2023 12:41 PM EST Scheduled Orders Name Type Priority Associated Diagnoses Orde r Schedule CBC Lab Routine 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) Other hyperlipidemia Primary hypertension Rheumatoid arthritis involving multiple sites with positive rheumatoid factor (HCC) Ordered: 10/24/2023 DIFFERENTIAL, AUTOMATED Lab Routine 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) Other hyperlipidemia Primary hypertension Rheumatoid arthritis involving multiple sites with positive rheumatoid factor (HCC) Ordered: 10/24/2023 Health Maintenance Due Date Last Done Comments COVID-19 Vaccine (#1) 1950 Pneumococcal Vaccine: 65+ Years (1 of 2 - PCV) 1951 DTaP,Tdap,and Td Vaccines (1 - Tdap) 1966 Zoster Vaccines (1 of 2) 1964 Influenza Vaccine (FLU shot) (#1) 2023 DXA Scan 10/15/2023 10/15/2021, 03/2022, 02/04/2019 GFR 06/09/2024 06/09/2023, 03/08, 06/26/2021, Additional history exists Depression Screening 07/03/2024 07/03/2023 Albumin/Creatinine Ratio 06/09/2026 06/09/2023, 03/2019 Colorectal Cancer Screening Discontinued Fecal Occult Blood Test Discontinued 01/21/2019 Cologuard Discontinued Colonoscopy Discontinued GARDASIL-HPV IMMUNIZATION SERIES Aged Out No longer eligible based on patient's age to complete this topic Hepatitis B Aged Out No longer eligi ble based on patient's age to complete this topic MENINGOCOCCAL (MENACTRA/MENVEO) Aged Out No longer eligible based on patient's age to complete this topic Sigmoidoscopy Discontinued documented as of this encounter Medical Devices Not on filedocumented as of this encounter Visit Diagnoses Diagnosis 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
--- OUTSIDE RECORDS SUMMARY | 2023-12-09 06:21 | External Medical Summary ---
Author Name Unknown Address Unknown Organization K01:LABORATORY [facility] - [address] [facility] [address] Laboratory Report Ordering Provider Test Date Status JAYNE RENDON 11/19/2023 10:50:19 Final Observation Date Value Abnormality Reference (Units ) Status Color of Urine by Auto 11/19/2023 10:50:19 Light Yellow Colorless, Light Yellow, Yellow, Dark Yellow Final Clarity, Urine 11/19/2023 10:50:19 Clear Clear Final Glucose [Mass/volume] in Urine by Automated test strip 11/19/2023 10:50:19 Negative Negative (mg/dL) Final Bilirubin.total [Presence] in Urine by Automated test strip 11/19/2023 10:50:19 Negative Negative Final Ketones [Mass/volume] in Urine by Automated test strip 11/19/2023 10:50:19 Negative Negative (mg/dL) Final Specific gravity, Urine 11/19/2023 10:50:19 1.022 1.003-1.030 Final Hemoglobin [Presence] in Urine by Automated test strip 11/19/2023 10:50:19 Negative Negative Final pH, Urine 11/19/2023 10:50:19 6.0 5.0-7.5 (Units) Final Protein [Mass/volume] in Urine by Automated test strip 11/19/2023 10:50:19 Negative Negative (mg/dL) Final Urobilinogen [Mass/volume] in Urine by Automated test strip 11/19/2023 10:50:19 Normal Normal (mg/dL) Final Nitrite [Presence] in Urine by Automated test strip 11/19/2023 10:50:19 Negative Negative Final Leukocyte esterase [Presence] in Urine by Automated test strip 11/19/2023 10:50:19 Trace Abnormal Negative Final RBC, Urine 11/19/2023 10:50:19 0-2 0-2 (/HPF) Final WBC, Urine 11/19/2023 10:50:19 3-5 Abnormal 0-2 (/HPF) Final Bacteria [#/area] in Urine sediment by Microscopy high power field 11/19/2023 10:50:19 0-25 0-25 (/HPF) Final Hyaline casts, Urine 11/19/2023 10:50:19 1-4 Abnormal None (/LPF) Final Performing Location LABORATORY [facility] - [facility] [address] [facility] [address]
--- OUTSIDE RECORDS SUMMARY | 2023-12-09 06:21 | External Medical Summary ---
Author Name Unknown Address Unknown Organization K01:[facility]ORY [facility] [place] [address] [facility] [place] [address] Laboratory Report Ordering Provider Test Date Status JAYNE RENDON 11/19/2023 10:50:19 Final Observation Date Value Abnormality Reference (Units ) Status SYNC LEUKOCYTES IN BLOOD BY AUTOMATED COUNT 11/19/2023 10:50:19 6.57 4.00-10.80 (K/uL) Final Segs 11/19/2023 10:50:19 70.4 40.0-75.0 (%) Final Lymphs % 11/19/2023 10:50:19 19.5 18.0-42.0 (%) Final Monos 11/19/2023 10:50:19 8.7 1.0-11.0 (%) Final Eosinophils 11/19/2023 10:50:19 0.6 0.0-6.0 (%) Final Basos 11/19/2023 10:50:19 0.5 0.0-2.0 (%) Final Immature Granulocyte, Percent 11/19/2023 10:50:19 0.3 0.0-2.0 (%) Final Absolute Segs 11/19/2023 10:50:19 4.63 1.80-7.70 (K/uL) Final Lymphs, absolute 11/19/2023 10:50:19 1.28 1.00-4.80 (K/ul) Final Monos, Abs 11/19/2023 10:50:19 0.57 0.00-1.10 (K/uL) Final Eos, Abs 11/19/2023 10:50:19 0.04 0.00-0.70 (K/uL) Final Basos, Abs 11/19/2023 10:50:19 0.03 0.00-0.20 (K/uL) Final Immature Granulocytes, Number 11/19/2023 10:50:19 0.02 0.00-0.20 (K/uL) Final Performing Location [facility] - [facility] [address] [facility] [address]
--- OUTSIDE RECORDS SUMMARY | 2023-12-09 06:21 | External Medical Summary ---
Author Name Unknown Address Unknown Organization K01:[facility] [place] [address] [place] [address] Laboratory Report Ordering Provider Test Date Status MICHAEL MANCILLA 11/19/2023 10:50:19 Final Observation Date Value Abnormality Reference (Units ) Status MYCODE SPECIMEN-LAV 11/19/2023 10:50:19 Freezing of extracted DNA, whole blood and/or serum. Final Performing Location LABORATORY [facility] - [address] [place] [address]
--- OUTSIDE RECORDS SUMMARY | 2023-12-09 06:21 | External Medical Summary ---
Author Name Unknown Address Unknown Organization K01:LABORATORY [facility] [place] - [facility] [address] [facility] [address] [facility] [address] Laboratory Report Ordering Provider Test Date Status JAYNE RENDON 11/19/2023 10:50:19 Final Observation Date Value Abnormality Reference (Units ) Status WBC, Total 11/19/2023 10:50:19 6.57 4.00-10.80 (K/uL) Final RBC 11/19/2023 10:50:19 3.96 3.85-5.15 (M/uL) Final Hemoglobin 11/19/2023 10:50:19 13.4 12.0-15.3 (g/dL) Final HCT 11/19/2023 10:50:19 41.1 36.0-45.2 (%) Final MCV 11/19/2023 10:50:19 103.8 81.5-97.5 (fL) Final MCH 11/19/2023 10:50:19 33.8 27.0-34.0 (pg) Final MCHC 11/19/2023 10:50:19 32.6 32.0-36.0 (g/dL) Final RDW 11/19/2023 10:50:19 12.2 11.5-15.5 (%) Final Platelets 11/19/2023 10:50:19 264 140-400 (K/uL) Final MPV 11/19/2023 10:50:19 12.4 6.6-11.1 (fL) Final Nucleated erythrocytes/100 leukocytes [Ratio] in Blood by Automated count 11/19/2023 10:50:19 0 <=0 (/100 WBCs) Final Performing Location LABORATORY [facility] - [address] [place] [address]
--- OUTSIDE RECORDS SUMMARY | 2023-12-09 06:21 | External Medical Summary | Summary of Care ---
Author Name Unknown Organization [facility] Address [address] [place] [address] Phone [phone] Care Team Providers Care Supervisor Composing Room Name Role Phone WintersElizabeth Primary Care Provider +1- [phone] Encounter Details Date Type Department Care Team (Late st Contact Info) Description 11/24/2023 Orders Only Outcomes Research Department [address] [place] [address] Ashley Rodriguez CHRA [facility] Other*[id number] Allergies No known active allergiesdocumented as of this encounter (statuses as of 11/24/2023) Medications Medication Sig Dispensed Refills Start Date [...] as of this encounter (statuses as of 11/24/2023) Active Problems Problem Noted Date Diagnosed Date [...] as of this encounter (statuses as of 11/24/2023) Resolved Problems Problem Noted Date Diagnosed Date Resolved Date Other hyperlipidemia 09/23/2019 020 Encounter for long-term (cur rent) use of medications 10/23/2018 09/23/2019 Encounter for examination fo r normal comparison and control in clinical research program 08/24/2018 04/10/2020 Overview: DO NOT DELETE [facility] Study: Project # [id number], Contract Technical Writer: Cole Perez, PhD. SUMMARY: Goal: Establish test [...] contact study staff at ; after hours Contract Technical Writer via the [facility] mononitrotoluene operator . Please contact study team before resolving/deleting from patients problem list. Study phone number: [phone]. Diagnosis changed due to Research Module. Go to Snapshot for study details. Encounter for examination fo r normal comparison and control in clinical research program 08/24/2018 05/09/2022 Overview: DO NOT DELETE - [facility] Study: Project # [id number], Contract Technical Writer: Jass Felix, MS, MPH. SUMMARY: Goal: Establish [...] contact study staff at ; after hours Contract Technical Writer via the [facility] mononitrotoluene operator . - Please contact study team before resolving/deleting from patients problem list. Study phone number: [phone]. Diagnosis changed due to Research Module. Go to Snapshot for study details. Mild protein-calorie malnutrition 08/21/2018 11/24/2020 Pure hypercholesterolemia 09/25/2017 Second degree AV block 09/25/201703/06 Overview: GERDA Keenan 08/19/17 Carpal tunnel syndrome 02/29/201603/06 Hypertension 03/06/2018 documented as of this encounter (statuses as of 11/24/2023) Immunizations No known immunizationsdocumented as of this [...] 11/26/2023 7:40 AM EDT [facility] [address] [place] [address] Elizabeth Winters DO [address] [place] [address] 01/08/2024 10:00 AM EDT Office Visit Cardiology, [facility] [address] [place] [address] Shreyas Jackson PA-C [address] [place] [address] 04/20/2024 10:00 AM EDT [facility] [address] [facility] [address] [place] [address] Sukh Robin PA-C [address] [place] [address] 07/08/2024 10:00 AM EDT Nurse Only Ancillary [address] [place] [address] [place], Nurse Annual Wellness Cold [address] [place] [address] 10/13/2024 9:00 AM EST Cardiac Studies Cardiology, [place] [address] [place] [address] [place] [address] [place] [address] Scheduled Orders Name Type Priority Associated Diagnoses Orde r Schedule MYCODE SUBSEQUENT ADULT Lab Routine MyCode Research Other*[id number] Every 6 Months for 2 Occurrences starting 11/24/2023 until 12/13/2024 Health Maintenance Due Date Last Done Comments COVID-19 Vaccine (#1) 1950 Pneumococcal Vaccine: 65+ Years (1 of 2 - PCV) 1951 DTaP,Tdap,and Td Vaccines (1 - Tdap) 1966 Zoster Vaccines (1 of 2) 1964 Influenza Vaccine (FLU shot) (#1) 2023 DXA Scan 10/15/2023 10/15/2021, 03/2022, 02/04/2019 Depression Screening 07/03/2024 07/03/2023 GFR 11/18/2024 11/19/2023, 10/2022, 2022, Additional history exists Albumin/Creatinine Ratio 11/18/2026 024, 06/09/2023, 09/14/2018 Colorectal Cancer Screening Discontinued Fecal Occult Blood [...] as of this encounter Visit Diagnoses Diagnosis MyCode Research Other*[id number] documented in this encounter Care Teams Supervisor Composing Room Relationship Specialty Start Date End Date Elizabeth Winters DO [address] [facility] [place] [address] PCP - General Family Medicine 04/26/20 documented as of this encounter
--- OUTSIDE RECORDS SUMMARY | 2023-12-09 06:21 | External Medical Summary ---
Author Name Unknown Address Unknown Organization K01:LABORATORY [facility] [place] - [address] [place] [address] Laboratory Report Ordering Provider Test Date Status JAYNE RENDON 11/19/2023 10:50:19 Final Observation Date Value Abnormality Reference (Units ) Status TSH 11/19/2023 10:50:19 1.38 0.27-4.20 (uIU/mL) Final Performing Location LABORATORY C - [address] [place] [address]
--- OUTSIDE RECORDS SUMMARY | 2023-12-09 06:21 | External Medical Summary ---
Author Name Unknown Address Unknown Organization K01:LABORATORY [facility] [place] - [address] [place] [address] Laboratory Report Ordering Provider Test Date Status MICHAEL MANCILLA 11/19/2023 10:50:19 Final Observation Date Value Abnormality Reference (Units ) Status MYCODE SPECIMEN-SST 11/19/2023 10:50:19 Freezing of extracted DNA, whole blood and/or serum. Final Performing Location LABORATORY [facility] - [address] [place] [address]
--- OUTSIDE RECORDS SUMMARY | 2023-12-09 06:21 | External Medical Summary | Summary of Care ---
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 SUMMARY: Goal: Establish test [...] contact study staff at ; after hours [employer] Crew Lead via the [facility] box folding machine operator . Please contact study team before resolving/deleting from patients problem list. Study phone number: [phone]. Diagnosis changed due to Research Module. Go to Snapshot for study details. Encounter for examination fo r normal comparison and control in clinical research program 08/24/2018 05/09/2022 Overview: DO NOT DELETE - [employer] CARRIE Study: Project # [id number], [employer] Crew Lead: Jass Felix, MS, MPH. SUMMARY: Goal: Establish [...] contact study staff at ; after hours Fast Food Crew Lead via the [facility] box folding machine operator . - Please contact study team before resolving/deleting from patients problem list. Study phone number: [phone]. Diagnosis changed due to Research Module. Go [...] Office Visit Family Practice [address] [place] [address] Elizabeth Winters DO [address] [place] [address] 01/14/2024 10:00 AM EDT Office Visit Cardiology, [facility] [address] [facility] [place] [address] Shreyas Jackson PA-C [address] [place] [address] 04/20/2024 10:00 AM EDT Office Visit Family Practice [address], [place] [address] [place] [address] Sukh Robin PA-C [address] [place] [address] 07/08/2024 10:00 AM EDT Nurse Only Ancillary [address], [place] [address] [place] [address] [place], Nurse Annual Wellness [facility] [address] [place] [address] 10/13/2024 9:00 AM EST Cardiac Studies Cardiology [place] [address] [facility] [place] [address] [facility] [address] [facility] [place] [address] Scheduled Orders Name Type Priority Associated Diagnoses [...] (HCC) documented in this encounter Care Teams Purchaser Relationship Specialty Start Date End Date Elizabeth Winters DO [address] [facility] [place] [address] PCP - General Family Medicine 04/26/20 documented as of this encounter
--- OUTSIDE RECORDS SUMMARY | 2023-12-09 06:21 | External Medical Summary | Summary of Care ---
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 SUMMARY: Goal: Establish test [...] contact study staff at ; after hours Spindle Maker via the [facility] tape rules printing machine operator . Please contact study team before resolving/deleting from patients problem list. Study phone number: [phone]. Diagnosis changed due to Research Module. Go to Snapshot for study details. Encounter for examination fo r normal comparison and control in clinical research program 08/24/2018 05/09/2022 Overview: DO NOT DELETE - [employer] CARRIE Study: Project # [id number], Spindle Maker: Jass Felix, MS, MPH. SUMMARY: Goal: Establish [...] contact study staff at ; after hours Spindle Maker via the [facility] tape rules printing machine operator . - Please contact study team before resolving/deleting from patients problem list. Study phone number: [phone]. Diagnosis changed due to Research Module. Go [...] Office Visit Family Practice [address] [place] [address] Elizabeth Winters DO [address] [place] [address] [address] 01/14/2024 10:00 AM EDT Office Visit Cardiology, [facility] [address] [facility] [place] [address] Shreyas Jackson PA-C [address] [place] [address] 04/20/2024 10:00 AM EDT Office Visit Family Practice [address], [place] [address] [place] [address] Sukh Robin PA-C [address] [place] [address] 07/08/2024 10:00 AM EDT Nurse Only Ancillary [address], [place] [address] [place] [address] [place], Nurse Annual Wellness [place] [address] [place] [address] 10/13/2024 9:00 AM EST Cardiac Studies Cardiology [facility] [address] [facility] [place] [address] [facility] Pacer [facility] [address] [facility] [place] [address] Pending Results Name Type Priority Associated Diagnoses [...] (HCC) documented in this encounter Care Teams Human Service Technician Relationship Specialty Start Date End Date Elizabeth Winters DO [address] [facility] [place] [address] PCP - General Family Medicine 04/26/20 documented as of this encounter
--- OUTSIDE RECORDS SUMMARY | 2023-12-09 06:21 | External Medical Summary ---
Author Name Unknown Address Unknown Organization [id number]:LABORATORY [facility] - [address] [place] [address] Laboratory Report Ordering Provider Test Date Status LEXI DE LOS SANTOS 11/19/2023 10:50:19 Final Normal: <30 mg/g creatinine< br/>High: 30-300 mg/g creatinine
Very High: >300 mg/g creatinine
Nephrotic: >2200 mg/g creatinine Observation Date Value Abnormality Reference (Units ) Status Albumin, Urine 11/19/2023 10:50:19 <1.20 (mg/dL) Final Creatinine, Urine 11/19/2023 10:50:19 76 (mg/dL) Final Albumin/Creatinine [Mass Ratio] in Urine 11/19/2023 10:50:19 <16 <30 (mg/g Creat) Final Performing Location LAB[facility]ORY [facility] - [address] [place] [address]
--- OUTSIDE RECORDS SUMMARY | 2023-12-09 06:21 | External Medical Summary ---
Author Name Unknown Address Unknown Organization K01:[facility]ATORY [facility] - [address] [place] [address] Laboratory Report Ordering Provider Test Date Status JAYNE RENDON 11/19/2023 10:50:19 Final Observation Date Value Abnormality Reference (Units ) Status BUN 11/19/2023 10:50:19 15 6-20 (mg/dL) Final Creatinine 11/19/2023 10:50:19 0.7 0.5-1.0 (mg/dL) Final Glomerular filtration rate/1.73 sq M.predicted [Volume Rate/Area] in Serum, Plasma or Blood by Creatinine-based formula (CKD-EPI) 11/19/2023 10:50:19 90 >=60 (mL/min) Final eGFR is calculated based on the CKD-EPI 2020 equation SODIUM 11/19/2023 10:50:19 141 135-146 (m mol/L) Final Potassium 11/19/2023 10:50:19 4.8 3.5-5.1 (m mol/L) Final Cl 11/19/2023 10:50:19 105 98-107 (mm ol/L) Final CO2 11/19/2023 10:50:19 27 22-32 (mmo l/L) Final Anion gap 11/19/2023 10:50:19 9 7-15 (mmol /L) Final Glucose 11/19/2023 10:50:19 86 70-120 (mg /dL) Final Albumin 11/19/2023 10:50:19 4.3 3.8-5.0 (g /dL) Final AST (Aspartate aminotransferase) 11/19/2023 10:50:19 35 10-35 (U/L) Fin al Alk Phos 11/19/2023 10:50:19 72 35-130 (U/ L) Final Bilirubin, Total 11/19/2023 10:50:19 0.6 <=1 .2 (mg/dL) Final Calcium 11/19/2023 10:50:19 9.4 8.4-10.2 ( mg/dL) Final Protein 11/19/2023 10:50:19 6.9 6.0-8.3 (g /dL) Final ALT (Alanine aminotransferase) 11/19/2023 10:50:19 57 Above high normal 10-35 (U/L) Final Performing Location [facility]ORY [facility] - [address] [place] [facility] [address]
--- OUTSIDE RECORDS SUMMARY | 2023-12-09 06:21 | External Medical Summary | Summary of Care ---
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 0 Active hydroCHLOROthiazide 12.5 MG Oral Tablet (Hydrodiuril)Indicat ions:Essential hypertension Take 0.5 Tablets by mouth in the morning. 45 Tablet 3 06/20/2023 Active Ezetimibe 10 MG Oral Tablet (Zetia)Indications:O ther hyperlipidemia Take 1 Tablet by mouth in the morning. 90 Tablet 3 07/03/2023 Active Vitamin D (Cholecalciferol) 25 MCG (1000 UT) Oral Tablet Take by mouth. 0 Active Rosuvastatin Calcium 10 MG Oral Tablet (Crestor)Indications :Hyperlipidemia with target LDL less than 100 Take 1 Tablet by mouth in the morning. 90 Tablet 1 09/17/2023 Active Gabapentin 300 MG Oral Capsule (Neurontin)Indicatio ns:Herpes zoster with other complication,Acute neuritis Taking 1 capsule in the morning, 1 capsule in the afternoon, and 2 capsules at bedtime 360 Capsule 3 09/22/2023 Active Metoprolol Succinate ER 25 MG Oral Tablet Extended Release 24 Hour (toPROL XL) TAKE ONE TABLET BY MOUTH EVERY MORNING 90 Tablet 3 09/24/2023 Active Valsartan 320 MG Oral Tablet (Diovan)Indications: Essential hypertension Take 1 Tablet by mouth in the morning. 90 Tablet 3 11/26/2023 Active Valsartan 320 MG Oral Tablet (Diovan)Indications: Essential hypertension Take 1 Tablet by mouth in the morning. 90 Tablet 1 06/20/2023 Discontinue d(Refill) documented as of this encounter (statuses as of 11/26/2023) Active Problems Problem Noted Date Diagnosed Date [...] as of this encounter (statuses as of 11/26/2023) Resolved Problems Problem Noted Date Diagnosed Date Resolved Date Other hyperlipidemia 09/23/2019 020 Encounter for long-term (cur rent) use of medications 10/23/2018 09/23/2019 Encounter for examination fo r normal comparison and control in clinical research program 08/24/2018 04/10/2020 Overview: DO NOT DELETE [employer] DETECT Study: Project # [id number], Daily Release And Dupe Printer: Cole ePrez, PhD. SUMMARY: Goal: Establish test characteristics (sensitivity, [...] contact study staff at ; after hours Daily Release And Dupe Printer via the [facility] hospital filter plant operator . Please contact study team before resolving/deleting from patients problem list. Study phone number: [phone]. Diagnosis changed due to Research Module. Go to Snapshot for study details. Encounter for examination fo r normal comparison and control in clinical research program 08/24/2018 05/09/2022 Overview: DO NOT DELETE - [employer] DETECT Study: Project # [id number], Daily [employer] Du[employer] Printer: Jass Felix, MS, MPH. SUMMARY: Goal: Establish [...] contact study staff at ; after hours Daily Release And Dupe Printer via the [facility] hospital filter plant operator . - Please contact study team before resolving/deleting from patients problem list. Study phone number: [phone]. Diagnosis changed due to Research Module. Go to Snapshot for study details. Mild protein-calorie malnutrition 08/21/2018 11/24/2020 Pure hypercholesterolemia 09/25/2017 Second degree AV block 09/25/201703/06 Overview: GERDA Keenan 08/19/17 Carpal tunnel syndrome 02/29/201603/06 Hypertension 03/06/2018 documented as of this encounter (statuses as of 11/26/2023) Immunizations No known immunizationsdocumented as of this [...] on file documented as of this encounter Last Filed Vital Signs Vital Sign Reading Time Taken Comments Blood Pressure 130/78 11/26/2023 7:43 AM EDT Pulse 68 11/26/2023 7:43 AM EDT Temperature 36.6 C (97.9 F) 11/26/2023 7:43 AM ED T Respiratory Rate 20 11/26/2023 7:43 AM EDT Oxygen Saturation 100% 11/26/2023 7:43 AM EDT Inhaled Oxygen Concentration - - Weight 84.2 kg (185 lb 9.6 oz) 11/26/2023 7:43 A M EDT Height 153.7 cm (5' 0.5") 11/26/2023 7:43 AM EDT Body Mass Index 35.65 11/26/2023 7:43 AM EDT documented in this encounter Patient Instructions * Patient Instructions* Karol Singh LPN - 11/26/2023 7:45 AM EDT Osteoporosis: Screening for Bone Loss The strength of bones is measured by their density (thickness). High bone density means bones are less likely to fracture. If you are at risk for bone loss, your healthcare provider may refer you forbone density testing. Bone Density Testing Bone density testing is safe, quick, easy, and painless. Testing can detect osteoporosis before a fracture happens. It can also predict the risk of future fractures. And testing can measure the response to treatment. There are two types of tests that you may have: Peripheral tests are used for screening. They measure density in the finger, wrist, knee, leyva, or heel. A common peripheral test is the quantitative ultrasound (QUS). Central tests are used for diagnosis. They measure density in the hip or spine. The main centraltest is the dual energy x-ray absorptiometry (DXA). The DXA is the standard bone density test. Who Should Be Tested? All postmenopausal women under age 65, with one or more risk factors in addition to menopause. All women age 65 and older. Postmenopausal women with fractures. Women who are thinking about treatment for osteoporosis. Women who have been on hormone therapy for a long time. Men or women with certain medical conditions or who are taking certain medications (such as glucocorticoids or prednisone) for a long period. Common Testing Sites Any bone can fracture, but with osteoporosis some bones fracture more easily. These include bones in the spine, wrist, shoulder, and hip. Thats why bone density testing may be done at one or more of these sites. Understanding Your Results The results of your test may seem confusing at first. Dont be afraid to ask your provider to explain. Your bone mineral density (BMD) describes the thickness of the bone that was scanned. Your healthcare provider will compare your BMD with the BMD of young, healthy bone. The result is called a T-score. Bones remodel at different rates. So, a healthy T-score in the wrist doesnt mean the spine is also healthy. Thats why more than one site may be scanned. [id number] [facility], [address] [place] [address], [place] [address]. All rights reserved. This information is not intended as a substitute for professional medical care. Always follow your healthcare professional's instructions documented in this encounter Progress Notes * Elizabeth Winters, - 11/26/2023 7:50 AM EDT Subjective Millie Rendon is a 78 year old female. Chief Complaint Patient presents with Routine Exam Routine 6 month return, no new concerns HPI: 78-year-old female here today for routine visit Chart reviewed Overall patient is doing well She really has no major concerns or complaints today She continues to follow with rheumatology on a regular basis for her rheumatoid arthritis, no majorchanges in medications She denies any chest pain shortness of breath or palpitations Her blood pressure is well controlled Reviewed labs today, cholesterol is significantly better with Zetia, she is tolerating it very well Component Latest Ref Rng 11/19/2023 BUN 6 - 20 mg/dL 15 Creatinine 0.5 - 1.0 mg/dL 0.7 Estimated Glomerular Filtration Rate >=60 mL/min 90 Sodium 135 - 146 mmol/L 141 Potassium 3.5 - 5.1 mmol/L 4.8 Chloride 98 - 107 mmol/L 105 CO2 22 - 32 mmol/L 27 Anion Gap 7 - 15 mmol/L 9 Glucose 70 - 120 mg/dL 86 Albumin 3.8 - 5.0 g/dL 4.3 AST 10 - 35 U/L 35 Alkaline Phosphatase 35 - 130 U/L 72 Bilirubin, Total <=1.2 mg/dL 0.6 Calcium 8.4 - 10.2 mg/dL 9.4 Protein 6.0 - 8.3 g/dL 6.9 ALT 10 - 35 U/L 57 (H) Color, Urine Colorless, Light Yellow, Yellow, Dark Yellow Light Yellow Clarity, Urine Clear Clear Glucose, Urine Negative mg/dL Negative Bilirubin, Urine Negative Negative Ketone, Urine Negative mg/dL Negative Specific Deming, Urine 1.003 - 1.030 1.022 Blood, Urine Negative Negative pH, Urine 5.0 - 7.5 Units 6.0 Protein, Urine Negative mg/dL Negative Urobilinogen, Urine Normal mg/dL Normal Nitrite, Urine Negative Negative Esterase, Urine Negative Trace ! RBC, Urine 0 - 2 /HPF 0-2 WBC, Urine 0 - 2 /HPF 3-5 ! Bacteria, Urine 0 - 25 /HPF 0-25 Hyaline, Cast, Urine None /LPF 1-4 ! WBC 4.00 - 10.80 K/uL 6.57 Neutrophils % 40.0 - 75.0 % 70.4 Lymphocytes % 18.0 - 42.0 % 19.5 Monocytes % 1.0 - 11.0 % 8.7 Eosinophils % 0.0 - 6.0 % 0.6 Basophils % 0.0 - 2.0 % 0.5 Immature Granulocytes % 0.0 - 2.0 % 0.3 Absolute Neutrophils 1.80 - 7.70 K/uL 4.63 Absolute Lymphocytes 1.00 - 4.80 K/ul 1.28 Absolute Monocytes 0.00 - 1.10 K/uL 0.57 Absolute Eosinophils 0.00 - 0.70 K/uL 0.04 Absolute Basophils 0.00 - 0.20 K/uL 0.03 Absolute Immature Granulocytes 0.00 - 0.20 K/uL 0.02 WBC 4.00 - 10.80 K/uL 6.57 RBC 3.85 - 5.15 M/uL 3.96 HGB 12.0 - 15.3 g/dL 13.4 HCT 36.0 - 45.2 % 41.1 MCV 81.5 - 97.5 fL 103.8 MCH 27.0 - 34.0 pg 33.8 MCHC 32.0 - 36.0 g/dL 32.6 RDW 11.5 - 15.5 % 12.2 PLT 140 - 400 K/uL 264 MPV 6.6 - 11.1 fL 12.4 nRBCs <=0 /100 WBCs 0 Triglycerides <=174 mg/dL 112 Cholesterol <200 mg/dL 125 HDL Cholesterol >49 mg/dL 56 Non-HDL Cholesterol <=159 mg/dL 69 LDL Cholesterol <=129 mg/dL 47 Albumin, Random Urine mg/dL <1.20 Creatinine, Random Urine mg/dL 76 Albumin / Creatinine Ratio, Urine <30 mg/g Creat <16 TSH 0.27 - 4.20 uIU/mL 1.38 PMH: Patient Active Problem List Diagnosis Code HTN (hypertension) I10 Vitamin D deficiency E55.9 Osteochondropathy M93.90 Cardiac pacemaker in situ Z95.0 Hyperlipidemia E78.5 History of second degree heart block Z86.79 Rheumatoid arthritis involving multiple sites with positive rheumatoid factor ([facility]) M05.79 Aortic valve disorder I35.9 Carpal tunnel syndrome G56.00 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 Ferrous Sulfate (IRON) 325 (65 Fe) MG TABS Take 1 Tablet by mouth in the morning and 1 Tablet at noon and 1 Tablet before bedtime. Calcium 500 MG Oral Tablet Take 2 Tablets by mouth in the morning. Rinvoq 15 MG Oral Tablet Extended Release 24 Hour (Upadacitinib ER) Take by mouth daily. hydroCHLOROthiazide 12.5 MG Oral Tablet (Hydrodiuril) Take 0.5 Tablets by mouth in the morning. 45 Tablet 3 Ezetimibe 10 MG Oral Tablet (Zetia) Take 1 Tablet by mouth in the morning. 90 Tablet 3 Vitamin D (Cholecalciferol) 25 MCG (1000 UT) Oral Tablet Take by mouth. Rosuvastatin Calcium 10 MG Oral Tablet (Crestor) Take 1 Tablet by mouth in the morning. 90 Tablet 1 Gabapentin 300 MG Oral Capsule (Neurontin) Taking 1 capsule in the morning, 1 capsule in the afternoon, and 2 capsules at bedtime 360 Capsule 3 Metoprolol Succinate ER 25 MG Oral Tablet Extended Release 24 Hour (toPROL XL) TAKE ONE TABLET BY MOUTH EVERY MORNING 90 Tablet 3 Valsartan 320 MG Oral Tablet (Diovan) Take 1 Tablet by mouth in the morning. 90 Tablet 3 No current facility-administered medications for this visit. 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) Vitamin D deficiency Past Surgical History: Procedure Laterality Date ARTHROCENT ASP AND/OR INJ SMALL JX /BURSA W/O US Right 03/05/2016 ARTHROCENTESIS AND/OR INJECTION SMALL JOINT BURSA performed by Nam Batista MD at OR [facility] CARPAL TUNNEL SURGERY Right 03/05/2016 NEUROPLASTY MEDIAN NERVE AT CARPAL TUNNEL performed by Nam Batista MD at OR [facility] PACEMAKER INSERTION PER 08/19/2017 PARTIAL HYSTERECTOMY Review of patient's allergies indicates: No Known Allergies Family History Problem Relation Age of Onset Coronary Artery disease Mother Coronary Artery disease Father Breast Cancer Cousin (Maternal) Family Status Relation Status Mo Fa MCOUS (Not Specified) Social History Socioeconomic History Marital status: Spouse name: Not on file Number of children: Not on file Years of education: Not on file Highest education level: Not on file Occupational History Not on file Tobacco Use Smoking status: Never Smokeless tobacco: Never Vaping Use Vaping Use: Never used Substance and Sexual Activity Alcohol use: No Drug use: No Sexual activity: Not on file Other Topics Concern Not on file Social History Narrative Not on file Social Determinants of Health Financial Resource Strain: Not on file Food Insecurity: No Food Insecurity (07/03/2023) Hunger Vital Sign Worried About Running Out of Food in the Last Year: Never true Ran Out of Food in the Last Year: Never true Transportation Needs: Not on file Physical Activity: Not on file Stress: Not on file Social Connections: Not on file Intimate Partner Violence: Not on file Housing Stability: Not on file Objective BP 130/78 | Pulse 68 | Temp 36.6 C (97.9 F) (Tympanic) | Resp 20 | Ht 1.537 m (5' 0.5") | Wt 84.2 kg (185 lb 9.6 oz) | SpO2 100% | BMI 35.65 kg/m | BSA 1.9 m Physical Exam Vitals and nursing note reviewed. Constitutional: General: She is not in acute distress. Appearance: Normal appearance. She is well-developed. She is not ill-appearing or diaphoretic. HENT: Head: Normocephalic and atraumatic. Right Ear: External ear normal. Left Ear: External ear normal. Mouth/Throat: Mouth: Mucous membranes are moist. Eyes: General: No scleral icterus. Right eye: No discharge. Left eye: No discharge. Cardiovascular: Rate and Rhythm: Normal rate and regular rhythm. Heart sounds: Normal heart sounds. No murmur heard. Pulmonary: Effort: Pulmonary effort is normal. No respiratory distress. Breath sounds: Normal breath sounds. No wheezing, rhonchi or rales. Abdominal: General: Bowel sounds are normal. There is no distension. Palpations: Abdomen is soft. Musculoskeletal: General: Deformity (Bilateral hands) present. Cervical back: Neck supple. Right lower leg: No edema. Left lower leg: No edema. Skin: General: Skin is warm and dry. Neurological: Mental Status: She is alert and oriented to person, place, and time. Psychiatric: Mood and Affect: Mood normal. Behavior: Behavior normal. Thought Content: Thought content normal. Judgment: Judgment normal. 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 Postmenopausal status, age-related - DEXA SCAN/BONE MINERAL AXIAL; Future; Expected date: 11/26/2023 No major changes today Continue all current medications Continue to follow with Rheumatology Will update DEXA scan Follow-up in 6 months or earlier as needed Follow Up: Return for Keep scheduled appointment. | For: Keep scheduled appointment Elizabeth Winters DO * Karol Singh LPN - 11/26/2023 7:45 AM EDT Dexa scan ordered today. Provider aware. Karol Singh LPN documented in this encounter Nursing Notes * Karol Singh LPN - 11/26/2023 7:43 AM EDT Chief Complaint Patient presents with Routine Exam Routine 6 month return, no new concerns documented in this encounter Plan of Treatment Upcoming Encounters Date Type Department Care Team (Late st Contact Info) Description 12/08/2023 10:30 AM EDT Appointment Radiology, [facility] [address] [place] [address] 01/08/2024 10:00 AM EDT Office Visit Cardiology, [facility] [address] [place] [address] Shreyas Jackson PA-C [address] [place] [address] 04/20/2024 10:00 AM EDT [facility] [address] [place] [address] Sukh Robin PA-C [address] [place] [address] 07/08/2024 10:00 AM EDT Nurse Only Ancillary [facility] [address] [place] [address] [address], Nurse Annual Well[facility] [address] [place] [address] 10/13/2024 9:00 AM EST Cardiac Studies Cardiology, [place] [address] [place] [address] [place] [address] [place] [address] Scheduled Orders Name Type Priority Associated Diagnoses Orde r Schedule DEXA SCAN/BONE MINERAL AXIAL Medical Imaging Routine Postmenopausal status, age-related Expected: 11/26/2023 (Approximate), Expires: 12/26/2024 Health Maintenance Due Date Last Done Comments [...] as of this encounter Visit Diagnoses Diagnosis Other hyperlipidemia- Primary Primary hypertension Unspecified essential hypertension 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
--- OUTSIDE RECORDS SUMMARY | 2023-12-09 06:21 | External Medical Summary | Summary of Care ---
Author Name Unknown Organization [facility] Address [address] [facility] [address] Phone [phone] Care Team Providers Care Dental Insurance Coordinator Name Role Phone Elizabeth Winters DO Primary Care Provider [phone]- [phone] Reason for Visit * Reason Comments Outpatient Testing Encounter Details Date Type Department Care Team (Late st Contact Info) Description 11/19/2023 11:00 AM EDT Laboratory Laboratory [address], [place] [address] [facility] [place] [address] [place] [facility] [address] [facility] [place] [address] Hyperlipidemia with target LDL less than 100; My[employer] Research Other*[id number] Allergies No known active allergiesdocumented as of this encounter (statuses as of 11/19/2023) Medications Medication Sig Dispensed Refills Start Date [...] as of this encounter (statuses as of 11/19/2023) Active Problems Problem Noted Date Diagnosed Date [...] as of this encounter (statuses as of 11/19/2023) Resolved Problems Problem Noted Date Diagnosed Date Resolved Date Other hyperlipidemia 09/23/2019 020 Encounter for long-term (cur rent) use of medications 10/23/2018 09/23/2019 Encounter for examination fo r normal comparison and control in clinical research program 08/24/2018 04/10/2020 Overview: DO NOT DELETE [employer] DETECT Study: Project # [id number], Pheresis Nurse: Cole Perez, PhD. SUMMARY: Goal: Establish test [...] contact study staff at ; after hours Pheresis Nurse via the [facility] power generation turbine room operator . Please contact study team before resolving/deleting from patients problem list. Study phone number: [phone]. Diagnosis changed due to Research Module. Go to Snapshot for study details. Encounter for examination fo r normal comparison and control in clinical research program 08/24/2018 05/09/2022 Overview: DO NOT DELETE - Thierno BUTLER Study: Project # [id number], Pheresis Nurse: Jass Felix, MS, MPH. SUMMARY: Goal: Establish [...] contact study staff at ; after hours Pheresis Nurse via the [facility] power generation turbine room operator . - Please contact study team before resolving/deleting from patients problem list. Study phone number: [phone]. Diagnosis changed due to Research Module. Go to Snapshot for study details. Mild protein-calorie malnutrition 08/21/2018 11/24/2020 Pure hypercholesterolemia 09/25/2017 Second degree AV block 09/25/201703/06 Overview: GERDA Keenan 08/19/17 Carpal tunnel syndrome 02/29/201603/06 Hypertension 03/06/2018 documented as of this encounter (statuses as of 11/19/2023) Immunizations No known immunizationsdocumented as of this [...] Office Visit Family Practice [address] [place] [address] Elizabeth Winters DO [address] [place] [address] 01/08/2024 10:00 AM EDT Office Visit Cardiology, [facility] [address] [place] [address] Shreyas Jackson PA-C [address] [place] [address] 04/20/2024 10:00 AM EDT Office Visit [facility] [address] [place] [address] Sukh Robin PA-C [address] [place] [address] 07/08/2024 10:00 AM EDT Nurse Only Ancillary [address] [facility] [address] [place] [address] [address], Nurse Annual Wellness [place] [address] [place] [address] 10/13/2024 9:00 AM EST Cardiac Studies Cardiology, [place] [address] [place] [address] [facility] [address] [place] [address] Pending Results Name Type Priority Associated Diagnoses Date /Time LIPID PANEL WITH DIRECT LDL IF TG IS HIGH Lab Routine Hyperlipidemia with target LDL less than 100 11/19/2023 10:50 AM EDT MYCODE INITIAL ADULT Lab Routine MyCode Research Other*[id number] 11/19/2023 10:50 AM EDT MYCODE INITIAL ADULT-PINK Lab Routine MyCode Research Other*[id number] 11/19/2023 10:50 AM EDT MYCODE SST1 Lab Routine MyCode Research Other*[id number] 11/19/2023 10:50 AM EDT MYCODE SST2 Lab Routine MyCode Research Other*[id number] 11/19/2023 10:50 AM EDT Health Maintenance Due Date Last Done Comments [...] as of this encounter Visit Diagnoses Diagnosis Hyperlipidemia with target LDL less than 100 Other and unspecified hyperlipidemia [employer] Research Other*[id number] documented in this encounter Care Teams Dental Insurance Coordinator Relationship Specialty Start Date End Date Elizabeth Winters DO [address] [facility] [place] [address] PCP - General Family Medicine 04/26/20 documented as of this encounter
--- OUTSIDE RECORDS SUMMARY | 2023-12-09 06:21 | External Medical Summary ---
Author Name Unknown Address Unknown Organization K01:[facility] [place] [address] [facility] [place] [address] Laboratory Report Ordering Provider Test Date Status JAYNE RENDON 11/19/2023 10:50:19 Final Observation Date Value Abnormality Reference (Units ) Status Triglyceride 11/19/2023 10:50:19 112 <=174 ( mg/dL) Final Triglyceride Reference Range s (mg/dL):
<150 Acceptable
150-174 Borderline high
175-499 High
>=500 Very high Cholesterol 11/19/2023 10:50:19 125 <200 (mg /dL) Final Total Cholesterol Reference Ranges (mg/dL):
<200 Desirable
200-239 Borderline high
>=240 High HDL 11/19/2023 10:50:19 56 >49 (mg/dL ) Final HDL Cholesterol Reference Ra nges (mg/dL):
>=60 High (Desirable)
<50 Low (Undesirable) For Females
<40 Low (Undesirable) For Males NON-HDL CHOLESTEROL 11/19/2023 10:50:19 69 <=159 (mg/dL) Final Non-HDL Cholesterol Referenc e Range (mg/dL):
<100 Target level for high risk ASCVD patient
<130 Optimal for general population
130-159 Near optimal for general population
160-189 Borderline High
190-219 High
>=220 Very High LDL, (calculated) 11/19/2023 10:50:19 47 <= 129 (mg/dL) Final LDL Cholesterol Reference Ra nges (mg/dL):
<70 Target level for high risk ASCVD patient
<100 Optimal for general population
100-129 Near optimal for general population
130-159 Borderline high
160-189 High
>=190 Very high Performing Location [facility] [place] - [address] [facility] [address]
--- OUTSIDE RECORDS SUMMARY | 2023-12-09 06:22 | External Medical Summary | Summary of Care ---
Author Name Unknown Organization [facility] Address [address] [place] [address] Phone [phone] Care Team Providers Care Warehouse Manager Name Role Phone Singh Elizabeth Bellmelissa COREAS Primary Care Provider +1- [phone] Encounter Details Date Type Department Care Team (Late st Contact Info) Description 10/19/2023 Result Scan Unspecified Department Jacklyn Lake DO [address] [facility] [address] <No scans attached> Allergies No known active allergiesdocumented as of this encounter (statuses as of 10/19/2023) Medications Medication Sig Dispensed Refills Start Date [...] as of this encounter (statuses as of 10/19/2023) Active Problems Problem Noted Date Diagnosed Date [...] as of this encounter (statuses as of 10/19/2023) Resolved Problems Problem Noted Date Diagnosed Date Resolved Date Other hyperlipidemia 09/23/2019 020 Encounter for long-term (cur rent) use of medications 10/23/2018 09/23/2019 Encounter for examination fo r normal comparison and control in clinical research program 08/24/2018 04/10/2020 Overview: DO NOT DELETE [facility] DETECT Study: Project # [id number], Varnish Thinner: Cole Perez, PhD. SUMMARY: Goal: Establish test [...] contact study staff at ; after hours Varnish Thinner via the [facility] hospital heater operator helper . Please contact study team before resolving/deleting from patients problem list. Study phone number: [phone]. Diagnosis changed due to Research Module. Go to Snapshot for study details. Encounter for examination fo r normal comparison and control in clinical research program 08/24/2018 05/09/2022 Overview: DO NOT DELETE - [facility] Study: Project # [id number], Varnish Thinner: Jass Felix, MS, MPH. SUMMARY: Goal: Establish [...] contact study staff at ; after hours Varnish Thinner via the [facility] heater operator helper . - Please contact study team before resolving/deleting from patients problem list. Study phone number: [phone]. Diagnosis changed due to Research Module. Go to [employer] for study details. Mild protein-calorie malnutrition 08/21/2018 11/24/2020 Pure hypercholesterolemia 09/25/2017 Second degree AV block 09/25/201703/06 Overview: GERDA Keenan 08/19/17 Carpal tunnel syndrome 02/29/201603/06 Hypertension 03/06/2018 documented as of this encounter (statuses as of 10/19/2023) Immunizations No known immunizationsdocumented as of this [...] Description 11/26/2023 7:40 AM EDT Office Visit [facility] [address] [place] [address] Elizabeth Winters DO [address] [place] [address] 01/14/2024 10:00 AM EDT Office Visit Cardiology, [facility] [address] [place] [address] Shreyas Jackson PA-C [address] [place] [address] 04/20/2024 10:00 AM EDT Office Visit Family [facility] [address] [place] [address] Sukh Robin PA-C [address] [place] [address] 07/08/2024 10:00 AM EDT Nurse Only Ancillary [place] [address] [place] [address] H[place], Nurse Annual Wellness [address] [address] [place] [address] 10/13/2024 9:00 AM EST Cardiac Studies Cardiology [facility] [place] [address] [place] [address] [place], [facility] [address] [place] [address] Health Maintenance Due Date Last Done Comments COVID-19 Vaccine (#1) 1950 Pneumococcal Vaccine: 65+ Years (1 - PCV) 1951 DTaP,Tdap,and Td Vaccines (1 [...] Not on filedocumented as of this encounter Procedures Procedure Name Priority Date/Time Associated Diagnosis Comments CARDIOLOGY SCANNED RESULT 10/19/2023 documented in this encounter Results * CARDIOLOGY SCANNED RESULT (10/19/2023) 10/19/2023 Jacklyn Lake DO OTHER documented in this encounter Care Teams Warehouse Manager Relationship Specialty Start Date End Date Elizabeth Winters DO [address] [facility] [place] [address] PCP - General Family Medicine 04/26/20 documented as of this encounter
--- OUTSIDE RECORDS SUMMARY | 2023-12-09 06:22 | External Medical Summary | Summary of Care ---
Author Name Unknown Organization [facility] Address [address] [facility] [address] Phone [phone] Care Team Providers Care Asian Studies Professor Name Role Phone SinghElizabeth Primary Care Provider +1- [phone] Reason for Visit * Reason Comments eRx-Medication Refill Encounter Details Date Type Department Care Team (Late st Contact Info) Description 09/23/2023 [address]iology, [facility] [address] [place] [address] Frank Brown DO [address] [facility] [place] [address] Allergies No known active allergiesdocumented as of this encounter (statuses as of 09/24/2023) Medications Medication Sig Dispensed Refills Start Date [...] 0 Active Valsartan 320 MG Oral Tablet (Diovan)Indications :Essential hypertension Take 1 Tablet by mouth in the morning. 90 Tablet 1 06/20/2023 Active hydroCHLOROthiazide 12.5 MG Oral Tablet (Hydrodiuril)Indica tions:Essential hypertension Take 0.5 Tablets by mouth in the morning. 45 Tablet 3 06/20/2023 Active Ezetimibe 10 MG Oral Tablet (Zetia)Indications: Other hyperlipidemia Take 1 Tablet by mouth in the morning. 90 Tablet 3 07/03/2023 Active Vitamin D (Cholecalciferol) 25 MCG (1000 UT) Oral Tablet Take by mouth. 0 Active Rosuvastatin Calcium 10 MG Oral Tablet (Crestor)Indication s:Hyperlipidemia with target LDL less than 100 Take 1 Tablet by mouth in the morning. 90 Tablet 1 09/17/2023 Active Gabapentin 300 MG Oral Capsule (Neurontin)Indicati ons:Herpes zoster with other complication,Acute neuritis Taking 1 capsule in the morning, 1 capsule in the afternoon, and 2 capsules at bedtime 360 Capsule 3 09/22/2023 Active Metoprolol Succinate ER 25 MG Oral Tablet Extended Release 24 Hour (toPROL XL) TAKE ONE TABLET BY MOUTH EVERY MORNING 90 Tablet 3 09/24/2023 Active Metoprolol Succinate ER 25 MG Oral Tablet Extended Release 24 Hour (toPROL XL) Take by mouth 1 Tablet in the morning. 90 Tablet 5 07/10/2022 09/24/19 24 Discontinued documented as of this encounter (statuses as of 09/24/2023) Active Problems Problem Noted Date Diagnosed Date [...] as of this encounter (statuses as of 09/24/2023) Resolved Problems Problem Noted Date Diagnosed Date Resolved Date Other hyperlipidemia 09/23/2019 020 Encounter for long-term (cur rent) use of medications 10/23/2018 09/23/2019 Encounter for examination fo r normal comparison and control in clinical research program 08/24/2018 04/10/2020 Overview: DO NOT DELETE [facility] DETECT Study: Project # [id number], Caddymaster: Cole Perez, PhD. SUMMARY: Goal: Establish test [...] contact study staff at ; after hours Caddymaster via the [facility] monomer purification operator . Please contact study team before resolving/deleting from patients problem list. Study phone number: [phone]. Diagnosis changed due to Research Module. Go to Snapshot for study details. Encounter for examination fo r normal comparison and control in clinical research program 08/24/2018 05/09/2022 Overview: DO NOT DELETE - [facility] DETECT Study: Project # [id number], Caddymaster: Jass Felix, MS, MPH. SUMMARY: Goal: Establish [...] contact study staff at ; after hours Caddymaster via the [facility] monomer purification operator . - Please contact study team before resolving/deleting from patients problem list. Study phone number: [phone]. Diagnosis changed due to Research Module. Go to Snapshot for study details. Mild protein-calorie malnutrition 08/21/2018 11/24/2020 Pure hypercholesterolemia 09/25/2017 Second degree AV block 09/25/201703/06 Overview: GERDA Keenan 08/19/17 Carpal tunnel syndrome 02/29/201603/06 Hypertension 03/06/2018 documented as of this encounter (statuses as of 09/24/2023) Immunizations No known immunizationsdocumented as of this [...] on file documented as of this encounter Miscellaneous Notes * Telephone Encounter - Frank Brown DO - 09/24/2023 9:47 AM ESTSigned Prescriptions: Disp Refills Metoprolol Succinate ER 25 MG Oral Tablet *90 Tab*3 Sig: TAKE ONE TABLET BY MOUTH EVERY MORNING Authorizing Provider: FRANK BROWN * Telephone Encounter - Daroí Parker RN - 09/24/2023 9:25 AM ESTPending Prescriptions: Disp Refills Metoprolol Succinate ER 25 MG Oral Tablet *90 Tab*3 Sig: TAKE ONE TABLET BY MOUTH EVERY MORNING * Telephone Encounter - Darío Parker RN - 09/24/2023 9:25 AM EST Pending Prescriptions: Disp Refills Metoprolol Succinate ER 25 MG Oral Tablet*90 Tab*3 Sig: TAKE ONE TABLET BY MOUTH EVERY MORNING Last Visit: 06/06/2023 (in office), Visit date not found (telemedicine) Next Visit: 01/14/2024 Last medication order date: 07/10/2022 Have you choosen a preferred pharm?? 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 ([facility]) I77.6 Severe obesity with body mass index (BMI) of 35.0 to 39.9 with serious comorbidity ([facility]) E66.01 Labs: Lab Results Component Value Date/Time CREATININE - [facility] 0.7 2022 11:28 AM CREATININE - [facility] 0.7 04/26/2020 09:37 AM CREATININE, RANDOM URINE - [facility] 103 09/14/2018 08:19 AM CREATININE-OUTSIDE LAB 0.60 06/09/2023 12:00 AM Lab Results Component Value Date/Time POTASSIUM - [facility] 4.5 2022 11:28 AM POTASSIUM - [facility] 4.2 04/26/2020 09:37 AM POTASSIUM-OUTSIDE LAB 4.3 06/09/2023 12:00 AM Lab Results Component Value Date/Time TSH - OUTSIDE LAB 1.050 06/09/2023 12:00 AM Lab Results Component Value Date/Time LDL (CALCULATED)-OUTSIDE LAB 151.0 (A) 06/09/2023 12:00 AM LDL CHOLESTEROL (CALCULATED) - [facility] 136 (H) 2022 11:28 AM LDL CHOLESTEROL (CALCULATED) - [facility] 135 (H) 04/26/2020 09:37 AM LDL CHOLESTEROL (CALCULATED) - [facility] 94 11/11/2017 08:16 AM LDL CHOLESTEROL (DIRECT MEASURE) - [facility] NOT APPLICABLE 04/26/2020 09:37 AM Lab Results Component Value Date/Time ALT - [facility] 27 2022 11:28 AM ALT - [facility] 23 04/26/2020 09:37 AM Hemoglobin AIC Results: No results found for: "HEMOGLOBIN A1C" documented in this encounter Plan of Treatment Upcoming Encounters Date Type Department Care Team (Late st Contact Info) Description 10/14/2023 10:00 AM EST Cardiac Studies Cardiology [place] [address] [place] [address] [address] [facility] [address] [place] [address] 11/26/2023 7:40 AM EDT Office Visit [facility] [address] [place] [address] Elizabeth Winters DO [address] [place] [address] 01/14/2024 10:00 AM EDT Office Visit Cardiology, [facility] [address] [place] [address] Shreyas Jackson PA-C [address] [place] [address] 04/20/2024 10:00 AM EDT Office Visit [facility] [address] [place] [address] Sukh Robin PA-C [address] [place] [address] 07/08/2024 10:00 AM EDT Nurse Only Ancillary [address], [place] [address] [place] [address] [place], Nurse Annual Wellness [place] [address] [place] [address] Health Maintenance Due Date Last Done Comments [...] Not on filedocumented as of this encounter Care Teams Asian Studies Professor Relationship Specialty Start Date End Date Elizabeth Winters DO [address] [facility] [place] [id number] PCP - General Family Medicine 04/26/20 documented as of this encounter
--- OUTSIDE RECORDS SUMMARY | 2023-12-09 06:22 | External Medical Summary | Summary of Care ---
Author Name Unknown Organization [facility] Address [address] [place] [address] Phone [phone] Care Team Providers Care Cooker Operator Name Role Phone WintersElizabeth Primary Care Provider +1- [phone] Encounter Details Date Type Department Care Team (Late st Contact Info) Description 10/06/2023 Orders Only Outcomes Research Department [address] [place] [address] Ashley Rodriguez CH[facility] Research Other*[id number] Allergies No known active allergiesdocumented as of this encounter (statuses as of 10/06/2023) Medications Medication Sig Dispensed Refills Start Date [...] as of this encounter (statuses as of 10/06/2023) Active Problems Problem Noted Date Diagnosed Date [...] as of this encounter (statuses as of 10/06/2023) Resolved Problems Problem Noted Date Diagnosed Date Resolved Date Other hyperlipidemia 09/23/2019 020 Encounter for long-term (cur rent) use of medications 10/23/2018 09/23/2019 Encounter for examination fo r normal comparison and control in clinical research program 08/24/2018 04/10/2020 Overview: DO NOT DELETE [facility] Study: Project # [id number], Vp Strategy: Cole Perez, PhD. SUMMARY: Goal: Establish test [...] contact study staff at ; after hours Vp Strategy via the [facility] grinder set up operator universal . Please contact study team before resolving/deleting from patients problem list. Study phone number: [phone]. Diagnosis changed due to Research Module. Go to Snapshot for study details. Encounter for examination fo r normal comparison and control in clinical research program 08/24/2018 05/09/2022 Overview: DO NOT DELETE - [facility] Study: Project # [id number], Vp Strategy: Jass Felix, MS, MPH. SUMMARY: Goal: Establish [...] contact study staff at ; after hours Vp Strategy via the [facility] grinder set up operator universal . - Please contact study team before resolving/deleting from patients problem list. Study phone number: [phone]. Diagnosis changed due to Research Module. Go to Snapshot for study details. Mild protein-calorie malnutrition 08/21/2018 11/24/2020 Pure hypercholesterolemia 09/25/2017 Second degree AV block 09/25/201703/06 Overview: GERDA Keenan 08/19/17 Carpal tunnel syndrome 02/29/201603/06 Hypertension 03/06/2018 documented as of this encounter (statuses as of 10/06/2023) Immunizations No known immunizationsdocumented as of this [...] 10/14/2023 10:00 AM EST Cardiac Studies Cardiology [place] [address] [place] [address] [facility] [address] [place] [address] 11/26/2023 7:40 AM EDT Office Visit Family Practice [address] [place] [address] Elizabeth Winters DO [address] [place] [address] 01/14/2024 10:00 AM EDT Office Visit Cardiology, [facility] [address] [address] Shreyas Jackson PA-C [address] [place] [address] 04/20/2024 10:00 AM EDT Office Visit Family Practice [address], [place] [address] [place] [address] Sukh Robin PA-C [address] [place] [address] 07/08/2024 10:00 AM EDT Nurse Only Ancillary [address], [place] [address] [place] [phone] [place], Nurse Annual Wellness [place] [address] [place] [address] Scheduled Orders Name Type Priority Associated Diagnoses Orde r Schedule MYCODE INITIAL ADULT Lab Routine MyCode Research Other*[id number] Expected: 10/06/2023 (Approximate), Expires: 10/25/2024 Health Maintenance Due Date Last Done Comments [...] this encounter Visit Diagnoses Diagnosis MyCode Research Other*[id number] documented in this encounter Care Teams Cooker Operator Relationship Specialty Start Date End Date Elizabeth Winters DO [address] [facility] [place] [address] PCP - General Family Medicine 04/26/20 documented as of this encounter
--- OUTSIDE RECORDS SUMMARY | 2023-12-09 06:22 | External Medical Summary | Summary of Care ---
Author Name Unknown Organization [facility] Address [address] [facility] [place] [address] Phone [phone] Care Team Providers Care Highway Engineering Teacher Name Role Phone Elizabeth Winters DO Primary Care Provider +1- [phone] Reason for Visit * Reason Onset Date Comments Pre Cert/Prior Auth 08/25/2023 Encounter Details Date Type Department Care Team (Late st Contact Info) Description 08/25/20[facility] [address] [place] [address] Elizabeth Winters DO [address] [place] [address] Pre Cert/Prior Auth Allergies No known active allergiesdocumented as of this encounter (statuses as of 09/22/2023) Medications Medication Sig Dispensed Refills Start Date [...] ER) Take by mouth daily. 0 Active Metoprolol Succinate ER 25 MG Oral Tablet Extended Release 24 Hour (toPROL XL) Take by mouth 1 Tablet in the morning. 90 Tablet 5 07/10/2022 Active Valsartan 320 MG Oral Tablet (Diovan)Indications [...] the morning. 90 Tablet 3 07/03/2023 Active Gabapentin 300 MG Oral Capsule (Neurontin)Indicati ons:Herpes zoster with other complication,Acute neuritis Take 1 Capsule by mouth at bedtime. 90 Capsule 3 08/21/2023 Active Additional Information Patient taking differently:300 mg Oral,(No frequency reported), Taking 1 capsule in the morning, 1 capsule in the afternoon, and 2 capsules at bedtime, Reported on 09/17/2023 Vitamin E 400 UNIT Oral Capsule (Aquasol E) Take 1 Capsule by mouth in the morning. 0 4 Discontinu ed(End of Procedure) predniSONE 10 MG (21) Oral Tablet Therapy Pack TAKE SIX TABLETS FOR 1 DAY, THEN FIVE TABLETS FOR 1 DAY, THEN FOUR TABLETS FOR 1 DAY,THEN THREE TABLETS FOR 1 DAY, THEN TWO TABLETS FOR 1 DA 0 08/19/2023 4 Discontinu ed(End of Procedure) valACYclovir HCl 1 GM Oral Tablet (Valtrex) Take 1 Tablet by mouth in the morning and 1 Tablet at noon and 1 Tablet before bedtime. 0 08/04/2023 4 Discontinu ed(End of Procedure) documented as of this encounter (statuses as of 09/22/2023) Active Problems Problem Noted Date Diagnosed Date [...] as of this encounter (statuses as of 09/22/2023) Resolved Problems Problem Noted Date Diagnosed Date Resolved Date Other hyperlipidemia 09/23/2019 020 Encounter for long-term (cur rent) use of medications 10/23/2018 09/23/2019 Encounter for examination fo r normal comparison and control in clinical research program 08/24/2018 04/10/2020 Overview: DO NOT DELETE [employer] DETECT Study: Project # [id number], Business Continuity Consultant: Cole Perez, PhD. SUMMARY: Goal: Establish test [...] contact study staff at ; after hours Business Continuity Consultant via the [facility] hospital viner operator . Please contact study team before resolving/deleting from patients problem list. Study phone number: [phone]. Diagnosis changed due to Research Module. Go to Snapshot for study details. Encounter for examination fo r normal comparison and control in clinical research program 08/24/2018 05/09/2022 Overview: DO NOT DELETE - [employer] DETECT Study: Project # [id number], Business Continuity Consultant: Jass Felix, MS, MPH. SUMMARY: Goal: Establish [...] contact study staff at ; after hours Business Continuity Consultant via the [facility] hospital viner operator . - Please contact study team before resolving/deleting from patients problem list. Study phone number: [phone]. Diagnosis changed due to Research Module. Go to Snapshot for study details. Mild protein-calorie malnutrition 08/21/2018 11/24/2020 Pure hypercholesterolemia 09/25/2017 Second degree AV block 09/25/201703/06 Overview: GERDA Keenan 08/19/17 Carpal tunnel syndrome 02/29/201603/06 Hypertension 03/06/2018 documented as of this encounter (statuses as of 09/22/2023) Immunizations No known immunizationsdocumented as of this [...] as of this encounter Miscellaneous Notes * Addendum Note - Tori Montes De Oca LPN - 09/22/2023 12:02 PM ESTAddended by: TORI MONTES DE OCA on: 09/22/2023 12:02 PM Modules accepted: Orders * Telephone Encounter - Tori Montes De Oca LPN - 09/22/2023 12:01 PM EST Spoke with pt to verify dosage requested. Pending for review. * Telephone Encounter - Madie Barclay PHARM Tech - 09/22/2023 11:26 AM EST Pharmacy calling in to request a new prescription showing a dose change on Patients Gabapentin . Current dose: 300 mg Requested dose: 300 mg Take 1 Capsule by mouth at bedtime. - Oral Reason for request: Patient taking differently: Take 1 Capsule by mouth. Taking 1 capsule in the morning, 1 capsule in the afternoon, and 2 capsules at bedtime Preferred pharmacy: [address]- [place] Thank you, Madie Barclay Manager Administration I Central[facility] Pharmacy Services (CCPS) (Formerly Telepharmacy) 09/22/2023,11:32 AM * Telephone Encounter - Tori Montes De Oca LPN - 08/30/2023 9:00 AM EST Pt notified, verbalized understanding and will let us know how it works * Telephone Encounter - Karol Singh LPN - 08/26/2023 10:01 AM EST Attempted to contact patient, unable to leave voicemail * Telephone Encounter - Elizabeth Winters DO - 08/25/2023 6:39 PM EST Recommend that she increase gabapentin either in 2-3 times a day or increase to 2 cap at night * Telephone Encounter - Suzi Botello OSA - 08/25/2023 8:27 AM EST The gabapentin is not giving pt any relief,please call something else in. documented in this encounter Plan of Treatment Upcoming Encounters Date Type Department Care Team (Late st Contact Info) Description 10/14/2023 10:00 AM EST Cardiac Studies Cardiology [place] [address] [place] [place] [address] [place], Pacer Clinic [address] [place] [address] 11/26/2023 7:40 AM EDT Office Visit Family Practice [address] [place] [address] Elizabeth Winters DO [address] [place] [address] 01/14/2024 10:00 AM EDT Office Visit Cardiology, [facility] [address] [place] [address] Shreyas Jackson PA-C [address] [place] [address] 04/20/2024 10:00 AM EDT Office Visit Family Practice [address] [place] [address] Sukh Robin PA-C [address] [place] [address] 07/08/2024 10:00 AM EDT Nurse Only Ancillary [address] [place] [address] [place], Nurse Annual Wellness [address] [place] [address] Health Maintenance Due Date Last Done Comments [...] as of this encounter Visit Diagnoses Diagnosis Herpes zoster with other complication Acute neuritis Neuralgia, neuritis, and radiculitis, unspecified documented in this encounter Care Teams Highway Engineering Teacher Relationship Specialty Start Date End Date Elizabeth Winters DO [address] [place] [address] PCP - General Family Medicine 04/26/20 documented as of this encounter
--- OUTSIDE RECORDS SUMMARY | 2023-12-09 06:22 | External Medical Summary | Summary of Care ---
Author Name Unknown Organization [facility] Address [address] [place] [place] [place] [address] Phone [phone] Care Team Providers Care Telephone Sales Representative Name Role Phone Filiberto Winters DO Primary Care Provider +1- [phone] Reason for Visit * Reason Onset Date Comments Pre Cert/Prior Auth 08/25/2023 Encounter Details Date Type Department Care Team (Late st Contact Info) Description 08/25/2023 [facility] [address] [place] [address] Filiberto Winters DO [address] [place] [address] Pre Cert/Prior Auth Allergies No known [...] 07/10/2022 Active Valsartan 320 MG Oral Tablet (Diovan)Indications: Essential hypertension Take 1 Tablet by mouth in the morning. 90 Tablet 1 06/20/2023 Active hydroCHLOROthiazide 12.5 MG Oral Tablet (Hydrodiuril)Indicat ions:Essential hypertension Take 0.5 Tablets by mouth in the morning. 45 Tablet 3 06/20/2023 Active Ezetimibe 10 MG Oral Tablet (Zetia)Indications:O ther hyperlipidemia Take 1 Tablet by mouth in the morning. 90 Tablet 3 07/03/2023 Active Gabapentin 300 MG Oral Capsule (Neurontin)Indicatio ns:Herpes zoster with other complication,Acute neuritis Taking 1 capsule in the morning, 1 capsule in the afternoon, and 2 capsules at bedtime 360 Capsule 3 09/22/2023 Active Vitamin E 400 UNIT Oral Capsule (Aquasol E) Take 1 Capsule by mouth in the morning. 0 4 Discontinue d(End of Procedure) predniSONE 10 MG (21) Oral Tablet Therapy Pack TAKE SIX TABLETS FOR 1 DAY, THEN FIVE TABLETS FOR 1 DAY, THEN FOUR TABLETS FOR 1 DAY,THEN THREE TABLETS FOR 1 DAY, THEN TWO TABLETS FOR 1 DA 0 08/19/2023 4 Discontinue d(End of Procedure) valACYclovir HCl 1 GM Oral Tablet (Valtrex) Take 1 Tablet by mouth in the morning and 1 Tablet at noon and 1 Tablet before bedtime. 0 08/04/2023 4 Discontinue d(End of Procedure) Gabapentin 300 MG Oral Capsule (Neurontin)Indicatio ns:Herpes zoster with other complication,Acute neuritis Take 1 Capsule by mouth at bedtime. 90 Capsule 3 08/21/2023 4 Discontinue d(Refill) documented as of this encounter [...] 08/24/2018 04/10/2020 Overview: DO NOT DELETE [facility] DETECT Study: Project # [id number], Vehicle Modification Technician: Cole Perez, PhD. SUMMARY: Goal: Establish test [...] contact study staff at ; after hours Vehicle Modification Technician via the [facility] resaw machine operator . Please contact study team before resolving/deleting from patients problem list. Study phone number: [phone]. Diagnosis changed due to Research Module. Go to Snapshot for study details. Encounter for examination fo r normal comparison and control in clinical research program 08/24/2018 05/09/2022 Overview: DO NOT DELETE - [facility] DETECT Study: Project # [id number], Vehicle Modification Technician: Jass Felix, MS, MPH. SUMMARY: Goal: Establish [...] contact study staff at ; after hours Vehicle Modification Technician via the [facility] hospital resaw machine operator . - Please contact study team before resolving/deleting from patients problem list. Study phone number: [phone]. Diagnosis changed due to Research Module. Go [...] encounter Miscellaneous Notes * Addendum Note - Filiberto Winters, DO - 09/22/2023 12:28 PM ESTAddended by: FILIBERTO WINTERS on: 09/22/2023 12:28 PM Modules accepted: Orders * Telephone Encounter - Filiberto Winters DO - 09/22/2023 12:28 PM EST Sent * Addendum Note - Tori Montes De [...] and 2 capsules at bedtime Preferred pharmacy: [facility] [address] [place] [address] [place] Thank you, Madie Barclay [employer] Supervisor I Centralized Clinical Pharmacy Services (CCPS) (Formerly Telepharmacy) 09/22/2023,11:32 AM * Telephone Encounter - Tori Montes De Oca LPN - 08/30/2023 9:00 AM EST Pt notified, verbalized understanding and will let us know how it works * Telephone Encounter - Karol Singh LPN - 08/26/2023 10:01 AM EST Attempted to contact patient, unable to leave voicemail * Telephone Encounter - Filiberto iWnters DO - 08/25/2023 6:39 PM EST Recommend [...] 10/14/2023 10:00 AM EST Cardiac Studies Cardiology [place] [facility] Val[address] [place] [place] [address] [place], Pacer Clinic [address] [place] [address] 11/26/2023 7:40 AM EDT Office Visit Family Practice [place] [address] [place] [address] [place] [address] Filiberto Winters DO [address] [place] [address] 01/14/2024 10:00 AM EDT Office Visit Cardiology, [facility] [address] [place] [address] Shreyas Jackson PA-C [address] [place] [address] 04/20/2024 10:00 AM EDT Office Visit Family Practice [address], [place] [address] [place] [address] Sukh Robin PA-C [address] [place] [address] [place] [address] 07/08/2024 10:00 AM EDT Nurse Only Ancillary [address], [place] [address] [place] [address] [place] [address] [place], Nurse Annual Wellness Cold [address] [place] [address] Health Maintenance Due Date Last Done Comments [...] unspecified documented in this encounter Care Teams Telephone Sales Representative Relationship Specialty Start Date End Date Filiberto Winters DO [address] [place] [address] PCP - General Family Medicine 04/26/20 documented as of this encounter
--- OUTSIDE RECORDS SUMMARY | 2023-12-09 06:22 | External Medical Summary | Summary of Care ---
Author Name Unknown Organization [facility] Address [address] [place] [address] Phone [phone] Care Team Providers Care Senior Major Gifts Officer Name Role Phone Singh Elizabeth Bellmelissa COREAS Primary Care Provider +1- [phone] Encounter Details Date Type Department Care Team (Late st Contact Info) Description 10/19/2023 Result Scan Unspecified Department Jacklyn Lake DO [address] [facility] [place] [id number] <No scans attached> Allergies No known [...] program 08/24/2018 04/10/2020 Overview: DO NOT DELETE [facility] DETECT Study: Project # [id number], Supervisor Telephone Information: Cole Perez, PhD. SUMMARY: Goal: Establish test [...] contact study staff at ; after hours Supervisor Telephone Information via the [facility] hospital compo conveyor operator . Please contact study team before resolving/deleting from patients problem list. Study phone number: [phone]. Diagnosis changed due to Research Module. Go to Snapshot for study details. Encounter for examination fo r normal comparison and control in clinical research program 08/24/2018 05/09/2022 Overview: DO NOT DELETE - [facility] Study: Project # [id number], Supervisor Telephone Information: Jass Felix, MS, MPH. SUMMARY: Goal: Establish [...] contact study staff at ; after hours Supervisor Telephone Information via the [facility] compo conveyor operator . - Please contact study team before resolving/deleting from patients problem list. Study phone number: [phone]. Diagnosis changed due to Research Module. Go to [employer] for study details. Mild protein-calorie malnutrition 08/21/2018 [...] Description 11/26/2023 7:40 AM EDT Office Visit [facility] [address] [place] [address] Elizabeth Winters DO [address] [place] [place] [address] 01/14/2024 10:00 AM EDT Office Visit Cardiology, [facility] [address] [place] [address] Shreyas Jackson PA-C [address] [place] [address] 04/20/2024 10:00 AM EDT Office Visit Family [facility] [place] [address] [place] [address] [place] [address] Sukh Robin PA-C [address] [place] [address] 07/08/2024 10:00 AM EDT Nurse Only Ancillary [place] [address] [place] [address] [place], Nurse Annual Wellness [place] [address] [place] [place] [address] 10/13/2024 9:00 AM EST Cardiac Studies Cardiology [facility] [place] [address] [place] [address] [place], Pacer Clinic [address] [place] [address] Health Maintenance Due Date Last Done Comments [...] OTHER documented in this encounter Care Teams Senior Major Gifts Officer Relationship Specialty Start Date End Date Elizabeth Winters DO [address] [facility] [place] [address] PCP - General Family Medicine 04/26/20 documented as of this encounter
--- OUTSIDE RECORDS SUMMARY | 2023-12-09 06:22 | External Medical Summary ---
Author Name Unknown Address Unknown Organization K01:LABORATORY [facility] - [address] [address] Laboratory Report Ordering Provider Test Date Status CARLOTA FLANAGAN 10/24/2023 12:41:03 Final Observation Date Value Abnormality Reference (Units ) Status CRP, low-sensitivity 10/24/2023 12:41:03 <3 <=5 (mg/L) Final Performing Location LABORATORY [facility] - [address] [place] [address]
--- OUTSIDE RECORDS SUMMARY | 2023-12-09 06:22 | External Medical Summary | Summary of Care ---
Author Name Unknown Organization [facility] Address [address] [facility] [place] [address] Phone [phone] Care Team Providers Care Ballistics Tester Name Role Phone Elizabeth Winters Primary Care Provider +1- [phone] Reason for Visit * Reason Comments Pacemaker Clinic Encounter Details Date Type Department Care Team (Late st Contact Info) Description 10/14/2023 10:00 AM EST Cardiac Studies Cardiology [facility] [place] [address] [place] [address] [place], Pacer Clinic [address] [facility] [place] [id number] Mobitz type 2 second degree AV block*; Cardiac pacemaker in situ Allergies No known active allergiesdocumented as of this encounter (statuses as of 10/14/2023) Medications Medication Sig Dispensed Refills Start Date [...] as of this encounter (statuses as of 10/14/2023) Active Problems Problem Noted Date Diagnosed Date [...] as of this encounter (statuses as of 10/14/2023) Resolved Problems Problem Noted Date Diagnosed Date Resolved Date Other hyperlipidemia 09/23/2019 020 Encounter for long-term (cur rent) use of medications 10/23/2018 09/23/2019 Encounter for examination fo r normal comparison and control in clinical research program 08/24/2018 04/10/2020 Overview: DO NOT DELETE [facility] DETECT Study: Project # [id number], Foot Worker: Cole Perez, PhD. SUMMARY: Goal: Establish test [...] contact study staff at ; after hours Foot Worker via the [facility] quarry plant crusher operator . Please contact study team before resolving/deleting from patients problem list. Study phone number: [phone]. Diagnosis changed due to Research Module. Go to Snapshot for study details. Encounter for examination fo r normal comparison and control in clinical research program 08/24/2018 05/09/2022 Overview: DO NOT DELETE - [facility] DETECT Study: Project # [id number], Foot Worker: Jass Felix, MS, MPH. SUMMARY: Goal: Establish [...] contact study staff at ; after hours Foot Worker via the [facility] quarry plant crusher operator . - Please contact study team before resolving/deleting from patients problem list. Study phone number: [phone]. Diagnosis changed due to Research Module. Go to Snapshot for study details. Mild protein-calorie malnutrition 08/21/2018 11/24/2020 Pure hypercholesterolemia 09/25/2017 Second degree AV block 09/25/201703/06 Overview: GERDA Keenan 08/19/17 Carpal tunnel syndrome 02/29/201603/06 Hypertension 03/06/2018 documented as of this encounter (statuses as of 10/14/2023) Immunizations No known immunizationsdocumented as of this [...] on file documented as of this encounter Progress Notes * Corinne Posey RN - 10/14/2023 10:02 AM EST Patient and implanted device were evaluated today in the [facility]. Providers please see scanned report in the Scans tab. Corinne Posey RN documented in this encounter Plan of Treatment Upcoming Encounters Date Type Department Care Team (Late st Contact Info) Description 11/26/2023 7:40 AM EDT Office Visit Family [facility] [address] [place] [address] Elizabeth Winters DO [address] [place] [address] 01/14/2024 10:00 AM EDT Office Visit Cardiology, [facility] [address] [place] [address] Shreyas Jackson PA-C [address] [place] [address] 04/20/2024 10:00 AM EDT Office [facility] [address] [place] [address] Sukh Robin PA-C [address] [place] [address] 07/08/2024 10:00 AM EDT Nurse Only Ancillary [address] [place] [address] [place], Nurse Annual Wellness [address] [place] [address] 10/13/2024 9:00 AM EST [facility] [address] [facility] [place] [address] [place], [facility] [address] [facility] [place] [address] Scheduled Orders Name Type Priority Associated Diagnoses Orde r Schedule DUAL-LEAD PACEMAKER + REPROGRAM Procedures Routine 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
--- OUTSIDE RECORDS SUMMARY | 2023-12-09 06:23 | External Medical Summary | Summary of Care ---
Author Name Unknown Organization [facility] Address [address] [facility] [place] [address] Phone [phone] Care Team Providers Care Russian Language Instructor Name Role Phone Elizabeth Winters DO Primary Care Provider [phone]- [phone] Reason for Visit * Reason Onset Date Comments Advice 08/18/2023 Shingles Encounter Details Date Type Department Care Team (Late st Contact Info) Description 08/18/2023 Telephone Family Practice [facility] [address] [place] [address] Elizabeth Winters DO [address] [place] [address] Advice (Shingles) Allergies No known active allergiesdocumented as of this encounter (statuses as of 08/20/2023) Medications Medication Sig Dispensed Refills Start Date [...] the morning. 90 Tablet 5 07/10/2022 Active Vitamin E 400 UNIT Oral Capsule (Aquasol E) Take 1 Capsule by mouth in the morning. 0 Active Valsartan 320 MG Oral Tablet (Diovan)Indications:Ess ential hypertension Take 1 Tablet by mouth in the morning. 90 Tablet 1 06/20/2023 Active hydroCHLOROthiazide 12.5 MG Oral Tablet (Hydrodiuril)Indication s:Essential hypertension Take 0.5 Tablets by mouth in the morning. 45 Tablet 3 06/20/2023 Active Ezetimibe 10 MG Oral Tablet (Zetia)Indications:Othe r hyperlipidemia Take 1 Tablet by mouth in the morning. 90 Tablet 3 07/03/2023 Active documented as of this encounter (statuses as of 08/20/2023) Active Problems Problem Noted Date Diagnosed Date [...] as of this encounter (statuses as of 08/20/2023) Resolved Problems Problem Noted Date Diagnosed Date Resolved Date Other hyperlipidemia 09/23/2019 020 Encounter for long-term (cur rent) use of medications 10/23/2018 09/23/2019 Encounter for examination fo r normal comparison and control in clinical research program 08/24/2018 04/10/2020 Overview: DO NOT DELETE [facility] DETECT Study: Project # [id number], Engineering Lecturer: Cole Perez, PhD. SUMMARY: Goal: Establish test [...] contact study staff at ; after hours Engineering Lecturer via the [facility] hospital skoog operator . Please contact study team before resolving/deleting from patients problem list. Study phone number: [phone]. Diagnosis changed due to Research Module. Go to Snapshot for study details. Encounter for examination fo r normal comparison and control in clinical research program 08/24/2018 05/09/2022 Overview: DO NOT DELETE - [facility] Study: Project # [id number], Engineering Lecturer: Jass Felix, MS, MPH. SUMMARY: Goal: Establish [...] contact study staff at ; after hours Engineering Lecturer via the [facility] hospital skoog operator . - Please contact study team before resolving/deleting from patients problem list. Study phone number: [phone]. Diagnosis changed due to Research Module. Go to Snapshot for study details. Mild protein-calorie malnutrition 08/21/2018 11/24/2020 Pure hypercholesterolemia 09/25/2017 Second degree AV block 09/25/201703/06 Overview: GERDA Keenan 08/19/17 Carpal tunnel syndrome 02/29/201603/06 Hypertension 03/06/2018 documented as of this encounter (statuses as of 08/20/2023) Immunizations No known immunizationsdocumented as of this [...] encounter Miscellaneous Notes * Telephone Encounter - Gloria Figueredo OSA - 08/20/2023 8:38 AM EST Spoke with pt. Appt scheduled. * Telephone Encounter - Rosa Nelson LPN - 08/19/2023 11:47 AM EST Pt needs an appt. * Telephone Encounter - Astrid Cabral OSA - 08/18/2023 3:23 PM EST Pt stopped in office to check on status. She states she stopped over at [facility] where she was seen the 1st time. They advised her that the shingles rash is gone but has neurologic pain. * Telephone Encounter - Jenn Clemens OSA - 08/18/2023 9:44 AM EST Pt said she still has Shingles / prescription / pt said she went to [facility] urgent care on 07-28-23 and was prescribed medication / pt still has symptoms and is requesting a prescription for valacyclovir HCL 1gm which was prescribed for her went she went to the urgent care documented in this encounter Plan of Treatment Upcoming Encounters Date Type Department Care Team (Late st Contact Info) Description 08/21/2023 3:00 PM EST Office Visit [facility] [address] [place] [address] [place] [address] Suhk Robin PA-C [address] [place] [address] 10/14/2023 10:00 AM EST Cardiac Studies Cardiology [place] [address] [place] [address] [place], Pacer [facility] [address] [place] [address] 11/26/2023 7:40 AM EDT Office Visit [facility] [address] [place] [address] [place] [address] Elizabeth Winters DO [address] [place] [address] 01/14/2024 10:00 AM EDT Office Visit Cardiology, [facility] [address] [place] [address] Shreyas Jackson PA-C [address] [place] [address] 07/08/2024 10:00 AM EDT Nurse Only Ancillary [address] [place] [address] [place], Nurse Annual Wellness Cold [address] [facility] [place] [address] Health Maintenance Due Date Last Done Comments [...] filedocumented as of this encounter Care Teams Russian Language Instructor Relationship Specialty Start Date End Date Elizabeth Winters DO [address] [place] [address] PCP - General Family Medicine 04/26/20 documented as of this encounter
--- OUTSIDE RECORDS SUMMARY | 2023-12-09 06:23 | External Medical Summary | Summary of Care ---
Author Name Unknown Organization [facility] Address [address] [facility] [place] [address] Phone [phone] Care Team Providers Care Nibbler Operator Name Role Phone Elizabeth Winters DO Primary Care Provider +1- [phone] Reason for Visit * Reason Onset Date Comments Advice 08/25/2023 No voicemail Encounter Details Date Type Department Care Team (Late st Contact Info) Description 08/25/2023 [facility] [address] [place] [address] Elizabeth Winters DO [address] [facility] [place] [address] Advice (No voicemail ) Allergies No known active allergiesdocumented as of this encounter (statuses as of 08/26/2023) Medications Medication Sig Dispensed Refills Start Date [...] 0 Active Valsartan 320 MG Oral Tablet (Diovan)Indications:Es sential hypertension Take 1 Tablet by mouth in the morning. 90 Tablet 1 06/20/2023 Active hydroCHLOROthiazide 12.5 MG Oral Tablet (Hydrodiuril)Indicatio ns:Essential hypertension Take 0.5 Tablets by mouth in the morning. 45 Tablet 3 06/20/2023 Active Ezetimibe 10 MG Oral Tablet (Zetia)Indications:Oth er hyperlipidemia Take 1 Tablet by mouth in the morning. 90 Tablet 3 07/03/2023 Active predniSONE 10 MG (21) Oral Tablet Therapy Pack TAKE SIX TABLETS FOR 1 DAY, THEN FIVE TABLETS FOR 1 DAY, THEN FOUR TABLETS FOR 1 DAY,THEN THREE TABLETS FOR 1 DAY, THEN TWO TABLETS FOR 1 DA 0 08/19/2023 Active valACYclovir HCl 1 GM Oral Tablet (Valtrex) Take 1 Tablet by mouth in the morning and 1 Tablet at noon and 1 Tablet before bedtime. 0 08/04/2023 Active Gabapentin 300 MG Oral Capsule (Neurontin)Indications :Herpes zoster with other complication,Acute neuritis Take 1 Capsule by mouth at bedtime. 90 Capsule 3 08/21/2023 Active documented as of this encounter (statuses as of 08/26/2023) Active Problems Problem Noted Date Diagnosed Date [...] as of this encounter (statuses as of 08/26/2023) Resolved Problems Problem Noted Date Diagnosed Date Resolved Date Other hyperlipidemia 09/23/2019 020 Encounter for long-term (cur rent) use of medications 10/23/2018 09/23/2019 Encounter for examination fo r normal comparison and control in clinical research program 08/24/2018 04/10/2020 Overview: DO NOT DELETE [facility] [place] Study: Project # [id number], Transit Clerk: Cole Perez, PhD. SUMMARY: Goal: Establish test [...] contact study staff at ; after hours Transit Clerk via the [facility] hospital tool grinder operator external . Please contact study team before resolving/deleting from patients problem list. Study phone number: [phone]. Diagnosis changed due to Research Module. Go to Snapshot for study details. Encounter for examination fo r normal comparison and control in clinical research program 08/24/2018 05/09/2022 Overview: DO NOT DELETE - [facility] DETECT Study: Project # [id number], Transit Clerk: Jass Felix, MS, MPH. SUMMARY: Goal: Establish [...] contact study staff at ; after hours Transit Clerk via the [facility] hospital tool grinder operator external . - Please contact study team before resolving/deleting from patients problem list. Study phone number: [phone]. Diagnosis changed due to Research Module. Go to Snapshot for study details. Mild protein-calorie malnutrition 08/21/2018 11/24/2020 Pure hypercholesterolemia 09/25/2017 Second degree AV block 09/25/201703/06 Overview: GERDA Hussein 08/19/17 Carpal tunnel syndrome 02/29/201603/06 Hypertension 03/06/2018 documented as of this encounter (statuses as of 08/26/2023) Immunizations No known immunizationsdocumented as of this [...] encounter Miscellaneous Notes * Telephone Encounter - Karol Singh LPN [...] Care Team (Late st Contact Info) Description 09/17/2023 10:40 AM EST Office Visit [facility] [address] [place] [address] Sukh Robin PA-C [address] [place] [address] 10/14/2023 10:00 AM EST Cardiac Studies Cardiology [place] [address] [facility] [place] [address] [place], Pacer [facility] [address] [facility] [place] [address] 11/26/2023 7:40 AM EDT Office Visit [facility] [address] [place] [address] Elizabeth Winters DO [address] [place] [address] 01/14/2024 10:00 AM EDT Office Visit Cardiology, [facility] [address] [place] [address] Shreyas Jackson PA-C [address] [place] [address] 07/08/2024 10:00 AM EDT Nurse Only [place] [address] [place] [address] [place], Nurse Annual Wellness Cold [address] [place] [address] Health Maintenance Due Date Last Done Comments [...] filedocumented as of this encounter Care Teams Nibbler Operator Relationship Specialty Start Date End Date Elizabeth Winters DO [address] [place] [address] PCP - General Family Medicine 04/26/20 documented as of this encounter
--- OUTSIDE RECORDS SUMMARY | 2023-12-09 06:23 | External Medical Summary | Summary of Care ---
Author Name Unknown Organization [facility] Address [address] [place] [place] [facility] [place] [address] Phone [phone] Care Team Providers Care Film Sorter Name Role Phone Elizabeth Winters DO Primary Care Provider +1- [phone] Reason for Visit * Reason Comments Acute She has shingle to h er right breast/back. She was seen at [facility] on [facility] and was diagnosed with shingles. Her rash is improving but she is not having any relief in pain. Encounter Details Date Type Department Care Team (Late st Contact Info) Description 08/21/2023 3:00 PM EST Office Visit [facility] [place] [address] [facility] [place] [address] Sukh Robin PA-C [address] [facility] [address] Herpes zoster with other complication*; Acute neuritis Allergies No known active allergiesdocumented as of this encounter (statuses as of 08/21/2023) Medications Medication Sig Dispensed Refills Start Date [...] as of this encounter (statuses as of 08/21/2023) Active Problems Problem Noted Date Diagnosed Date [...] as of this encounter (statuses as of 08/21/2023) Resolved Problems Problem Noted Date Diagnosed Date Resolved Date Other hyperlipidemia 09/23/2019 020 Encounter for long-term (cur rent) use of medications 10/23/2018 09/23/2019 Encounter for examination fo r normal comparison and control in clinical research program 08/24/2018 04/10/2020 Overview: DO NOT DELETE [facility] Study: Project # [id number], Pega Developer: Cole Perez, PhD. SUMMARY: Goal: Establish test [...] contact study staff at ; after hours Pega Developer via the [facility] hospital graining machine operator . Please contact study team before resolving/deleting from patients problem list. Study phone number: [phone]. Diagnosis changed due to Research Module. Go to Snapshot for study details. Encounter for examination fo r normal comparison and control in clinical research program 08/24/2018 05/09/2022 Overview: DO NOT DELETE - [employer] [place] Study: Project # [id number], Pega Developer: Jass Felix, MS, MPH. SUMMARY: Goal: Establish [...] contact study staff at ; after hours Pega Developer via the [facility] hospital graining machine operator . - Please contact study team before resolving/deleting from patients problem list. Study phone number: [phone]. Diagnosis changed due to Research Module. Go to Snapshot for study details. Mild protein-calorie malnutrition 08/21/2018 11/24/2020 Pure hypercholesterolemia 09/25/2017 Second degree AV block 09/25/201703/06 Overview: GERDA Keenan 08/19/17 Carpal tunnel syndrome 02/29/201603/06 Hypertension 03/06/2018 documented as of this encounter (statuses as of 08/21/2023) Immunizations No known immunizationsdocumented as of this encounter Social History Tobacco Use Types Packs/Day Years Used Date Smoking Tobacco: Never Smokeless Tobacco: Never Tobacco Cessation:Counseling Given: Not Answered Alcohol Use Standard Drinks/Week Comments No 0 [...] Sign Reading Time Taken Comments Blood Pressure 128/78 08/21/2023 3:12 PM EST Pulse 74 08/21/2023 3:12 PM EST Temperature 36.3 C (97.3 F) 08/21/2023 3:12 PM ES T Respiratory Rate 20 08/21/2023 3:12 PM EST Oxygen Saturation 98% 08/21/2023 3:12 PM EST Inhaled Oxygen Concentration - - Weight 84.9 kg (187 lb 3.2 oz) 08/21/2023 3:12 P M EST Height 153.7 cm (5' 0.5") 08/21/2023 3:12 PM EST Body Mass Index 35.96 08/21/2023 3:12 PM EST documented in this encounter Progress Notes * Sukh Robin PA-C - 08/21/2023 3:16 PM EST Images from the original note were not included. History of Present Illness Millie Rendon is a 78 year old female that presents for acute visit. Patient developed a rash on underside of right breast which extended laterally and into her right upper back, ending at the spine. This started around 07/26/2023. She later developed severe pain withthis, so she went to urgent care on 07/28/2023. Diagnosed with shingles and treated with antiviral medication. Her pain continued, so she returned to urgent care on 08/19/2023. She was prescribed a 6day course of prednisone. She has had just mild relief with this. Pain is still rated 8/10, moderate to severely tender to palpation; rashes now macular without any visible vesicles. 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 Metoprolol Succinate ER 25 MG Oral Tablet Extended Release 24 Hour (toPROL XL) Take by mouth 1 Tablet in the morning. 90 Tablet 5 Vitamin E 400 UNIT Oral Capsule (Aquasol E) Take 1 Capsule by mouth in the morning. Valsartan 320 MG Oral Tablet (Diovan) Take 1 Tablet by mouth in the morning. 90 Tablet 1 hydroCHLOROthiazide 12.5 MG Oral Tablet (Hydrodiuril) Take 0.5 Tablets by mouth in the morning. 45 Tablet 3 Ezetimibe 10 MG Oral Tablet (Zetia) Take 1 Tablet by mouth in the morning. 90 Tablet 3 predniSONE 10 MG (21) Oral Tablet Therapy Pack TAKE SIX TABLETS FOR 1 DAY, THEN FIVE TABLETS FOR 1 DAY, THEN FOUR TABLETS FOR 1 DAY,THEN THREE TABLETS FOR 1 DAY, THEN TWO TABLETS FOR 1 DA valACYclovir HCl 1 GM Oral Tablet (Valtrex) Take 1 Tablet by mouth in the morning and 1 Tablet at noon and 1 Tablet before bedtime. Gabapentin 300 MG Oral Capsule (Neurontin) Take 1 Capsule by mouth at bedtime. 90 Capsule 3 No current facility-administered medications for this [...] performed by Nam Batista MD at OR [facility] CARPAL TUNNEL SURGERY Right 03/05/2016 NEUROPLASTY MEDIAN NERVE AT CARPAL TUNNEL performed by Nam Batista MD at OR [facility] PACEMAKER INSERTION PER 08/19/2017 PARTIAL HYSTERECTOMY Family History Problem Relation Age of Onset Coronary Artery disease Mother Coronary Artery disease Father Breast Cancer Cousin (Maternal) Family Status Relation Status Mo Fa MCOUS (Not Specified) Social History Socioeconomic History Marital status: Tobacco Use Smoking status: Never Smokeless tobacco: Never Vaping Use Vaping Use: Never used Substance and Sexual Activity Alcohol use: No Drug use: No Social Determinants of Health Food Insecurity: No Food Insecurity (07/03/2023) Hunger Vital Sign Worried About Running Out of Food in the Last Year: Never true Ran Out of Food in the Last Year: Never true Review of Systems Constitutional: Negative. Negative for chills and fever. Respiratory: Negative. Negative for shortness of breath. Cardiovascular: Negative. Negative for chest pain. Musculoskeletal: Positive for myalgias. Skin: Positive for rash. Neurological: Positive for numbness. Psychiatric/Behavioral: Negative. Physical Exam BP 128/78 | Pulse 74 | Temp 36.3 C (97.3 F) (Tympanic) | Resp 20 | Ht 1.537 m (5' 0.5") | Wt 84.9 kg (187 lb 3.2 oz) | SpO2 98% | BMI 35.96 kg/m | BSA 1.9 m Physical Exam Vitals and nursing note reviewed. Constitutional: Appearance: Normal appearance. She is obese. Cardiovascular: Rate and Rhythm: Normal rate and regular rhythm. Pulses: Normal pulses. Heart sounds: Normal heart sounds. No murmur heard. Pulmonary: Effort: Pulmonary effort is normal. Breath sounds: Normal breath sounds. No wheezing, rhonchi or rales. Skin: Comments: Now with the macular rash/scar located under the right breast extending laterally and into the right upper back consistent with previous shingles infection; no active vesicles; moderate to severely tender to palpation just on the surface of the skin Neurological: Mental Status: She is alert and oriented to person, place, and time. Comments: Hypersensitivity in the skin under the right breast extending laterally into the right thoracic musculature Assessment and Plan Herpes zoster with other complication Start gabapentin 300 mg nightly. She is to call in 1 week with an update on her symptoms; consider titrating the gabapentin up as necessary. Otherwise follow up with the patient in 1 month. She declines pain medication. - Gabapentin 300 MG Oral Capsule (Neurontin); Take 1 Capsule by mouth at bedtime. Acute neuritis - Gabapentin 300 MG Oral Capsule (Neurontin); Take 1 Capsule by mouth at bedtime. Wrap-Up Follow Up: Return in about 4 weeks (around 09/18/2023), or if symptoms worsen or fail to improve, for Return with AP. | For: Return with AP Time: I spent a total of 10-19 minutes (exact time 15 mins) on the date of service in preparation, delivery, and documentation of the care provided to Millie Rendon excluding any time spent in the performance of separately billed services. documented in this encounter Nursing Notes * Karol Singh LPN - 08/21/2023 3:12 PM EST Chief Complaint Patient presents with Acute She has shingle to her right breast/back. She was seen [facility] on 07/[facility] and was diagnosedwith shingles. Her rash is improving but she is not having any relief in pain. documented in this encounter Plan of Treatment Upcoming Encounters Date Type Department Care Team (Late st Contact Info) Description 09/17/2023 10:40 AM EST [facility] [address] [place] [address] Sukh Robin PA-C [address] [place] [address] 10/14/2023 10:00 AM EST Cardiac Studies Cardiology [place] [address] [place] [address] [place] [address] [facility] [place] [address] 11/26/2023 7:40 AM EDT Office Visit [facility] [place] [place] [address] [place] [address] Elizabeth Winters DO [address] [place] [address] 01/14/2024 10:00 AM EDT Office Visit Cardiology, [address] [place] [address] Shreyas Jackson PA-C [address] [place] [address] 07/08/2024 10:00 AM EDT Nurse Only Ancillary [address], [place] [address] [place] [address] [place], Nurse Annual Wellness Cold [address] [place] [place] [address] Health Maintenance Due Date Last Done Comments [...] Visit Diagnoses Diagnosis Herpes zoster with other complication- Primary Acute neuritis Neuralgia, neuritis, and radiculitis, unspecified documented in this encounter Care Teams Film Sorter Relationship Specialty Start Date End Date Elizabeth Winters DO [address] [place] [address] PCP - General Family Medicine 04/26/20 documented as of this encounter
--- OUTSIDE RECORDS SUMMARY | 2023-12-09 06:23 | External Medical Summary | Summary of Care ---
Author Name Unknown Organization [facility] Address [address] [facility] [place] [place] [address] Phone [phone] Care Team Providers Care Asset Management Lead Name Role Phone Elizabeth Winters DO Primary Care Provider [phone]- [phone] Reason for Visit * Reason Onset Date Comments Advice 08/25/2023 No voicemail Encounter Details Date Type Department Care Team (Late st Contact Info) Description 08/25/[address] [facility] [address] [place] [address] Elizabeth Winters DO [address] [place] [address] Advice (No voicemail ) Allergies No known active allergiesdocumented as of this encounter (statuses as of 08/30/2023) Medications Medication Sig Dispensed Refills Start Date [...] as of this encounter (statuses as of 08/30/2023) Active Problems Problem Noted Date Diagnosed Date [...] as of this encounter (statuses as of 08/30/2023) Resolved Problems Problem Noted Date Diagnosed Date Resolved Date Other hyperlipidemia 09/23/2019 020 Encounter for long-term (cur rent) use of medications 10/23/2018 09/23/2019 Encounter for examination fo r normal comparison and control in clinical research program 08/24/2018 04/10/2020 Overview: DO NOT DELETE [facility] CARRIE Study: Project # [id number], Canceling Machine Operator: Cole Perez, PhD. SUMMARY: Goal: Establish test [...] contact study staff at ; after hours Canceling Machine Operator via the [facility] hospital clasp machine operator . Please contact study team before resolving/deleting from patients problem list. Study phone number: [phone]. Diagnosis changed due to Research Module. Go to Snapshot for study details. Encounter for examination fo r normal comparison and control in clinical research program 08/24/2018 05/09/2022 Overview: DO NOT DELETE - [facility] DETECT Study: Project # [id number], Canceling Machine Operator: Jass Felix, MS, MPH. SUMMARY: Goal: Establish [...] contact study staff at ; after hours Canceling Machine Operator via the [facility] hospital clasp machine operator . - Please contact study team before resolving/deleting from patients problem list. Study phone number: [phone]. Diagnosis changed due to Research Module. Go to Snapshot for study details. Mild protein-calorie malnutrition 08/21/2018 11/24/2020 Pure hypercholesterolemia 09/25/2017 Second degree AV block 09/25/201703/06 Overview: GERDA Hussein 08/19/17 Carpal tunnel syndrome 02/29/201603/06 Hypertension 03/06/2018 documented as of this encounter (statuses as of 08/30/2023) Immunizations No known immunizationsdocumented as of this [...] encounter Miscellaneous Notes * Telephone Encounter - Tori Montes De [...] Description 09/17/2023 10:40 AM EST Office Visit [facility] [address] [place] [address] Sukh Robin PA-C [address] [place] [address] 10/14/2023 10:00 AM EST [facility] [address] [facility] [place] [address] [place], [facility] [address] [facility] [place] [address] 11/26/2023 7:40 AM EDT Office Visit [facility] [address] [place] [address] Elizabeth Winters DO [address] [place] [address] 01/14/2024 10:00 AM EDT Office Visit Cardiology, [facility] [address] [facility] [place] [address] Shreyas Jackson PA-C [address] [place] [address] 07/08/2024 10:00 AM EDT Nurse Only Ancillary [address] [place] [address] [place] [address] [address], Nurse Annual Wellness Cold [address] [place] [address] Health Maintenance Due Date Last Done Comments [...] filedocumented as of this encounter Care Teams Asset Management Lead Relationship Specialty Start Date End Date Elizabeth Winters DO [address] [place] [address] PCP - General Family Medicine 04/26/20 documented as of this encounter
--- OUTSIDE RECORDS SUMMARY | 2023-12-09 06:23 | External Medical Summary | Summary of Care ---
Author Name Unknown Organization [facility] Address [address] [facility] [address] Phone [phone] Care Team Providers Care Fundraising Assistant Name Role Phone WintersElizabeth badillo Primary Care Provider [phone]- [phone] Reason for Visit * Reason Onset Date Comments Adult Annual Wellness Visit, Initial Visit 07/03 Encounter Details Date Type Department Care Team (Late st Contact Info) Description 07/03/2023 11:00 AM EDT Nurse Only Ancillary [facility], [place] [address] [place] [address] [place], Nurse Annual Wellness [place] [address] [place] [address] Adult Annual Wellness Visit, Initial Visit Allergies No known active allergiesdocumented as of this encounter (statuses as of 07/03/2023) Medications Medication Sig Dispensed Refills Start Date [...] the morning. 45 Tablet 3 06/20/2023 Active documented as of this encounter (statuses as of 07/03/2023) Active Problems Problem Noted Date Diagnosed Date [...] as of this encounter (statuses as of 07/03/2023) Resolved Problems Problem Noted Date Diagnosed Date Resolved Date Other hyperlipidemia 09/23/2019 020 Encounter for long-term (cur rent) use of medications 10/23/2018 09/23/2019 Encounter for examination fo r normal comparison and control in clinical research program 08/24/2018 04/10/2020 Overview: DO NOT DELETE [facility] DETECT Study: Project # [id number], Deicer Repairer: Cole Perez, PhD. SUMMARY: Goal: Establish test [...] contact study staff at ; after hours Deicer Repairer via the [facility] chief lock operator . Please contact study team before resolving/deleting from patients problem list. Study phone number: [phone]. Diagnosis changed due to Research Module. Go to Snapshot for study details. Encounter for examination fo r normal comparison and control in clinical research program 08/24/2018 05/09/2022 Overview: DO NOT DELETE - [facility] Study: Project # [id number], Deicer Repairer: Jass Felix, MS, MPH. SUMMARY: Goal: Establish [...] contact study staff at ; after hours Deicer Repairer via the [facility] chief lock operator . - Please contact study team before resolving/deleting from patients problem list. Study phone number: [phone]. Diagnosis changed due to Research Module. Go to Snapshot for study details. Mild protein-calorie malnutrition 08/21/2018 11/24/2020 Pure hypercholesterolemia 09/25/2017 Second degree AV block 09/25/201703/06 Overview: GERDA Hussein 08/19/17 Carpal tunnel syndrome 02/29/201603/06 Hypertension 03/06/2018 documented as of this encounter (statuses as of 07/03/2023) Immunizations No known immunizationsdocumented as of this encounter Social History Tobacco Use Types Packs/Day Years Used Date Smoking Tobacco: Never Smokeless Tobacco: Never Tobacco Cessation:Counseling Given: Not Answered Alcohol Use Standard Drinks/Week Comments No 0 (1 standard drink = 0.6 oz pur e alcohol) PHQ-2 Answer Date Recorded PHQ-2 Score 0 09/23/2019 Hunger Vital Sign Answer Date Recorded Worried About Running Out of Food in the Last Ye ar Never true 09/23/2019 Ran Out of Food in the Last Year Never true 09/23/2019 Sex and Gender Information Value Date Recorded Sex Assigned at Female 07/03/2023 11:18 AM EDT Gender Identity Female 07/03/2023 11:18 AM EDT Sexual Orientation Straight 07/03/2023 11 :18 AM EDT Job Start Date Occupation Industry Not on file Not on file Not on file documented as of this encounter Last Filed Vital Signs Vital Sign Reading Time Taken Comments Blood Pressure - - Pulse - - Temperature - - Respiratory Rate - - Oxygen Saturation - - Inhaled Oxygen Concentration - - Weight 85.3 kg (188 lb) 07/03/2023 11:14 AM EDT Height 153.7 cm (5' 0.5") 07/03/2023 11:14 AM ED T Body Mass Index 36.11 07/03/2023 11:14 AM EDT documented in this encounter Patient Instructions * Patient Instructions* Ksenia Joyner RN - 07/03/2023 11:09 AM EDT Hi Ms. Rendon, As your primary care physician, I know that regular visits with my patients who have several chronic conditions can go a long way in helping you stay healthy. Many times, the clinic team and I are in touch with you and/or other care team members between office visits to adjust medications, discuss any changes in your health, and review our care plan to make sure it is still meeting your needs. I am dedicated to helping you take a more active role in your overall care. It is important that there are resources available to you, so I created a personalized plan of care with a Health Calendar for you, which is included on the next page of this letter. Below is a list that summarizes your electronic health record: Health Maintenance Due: Health Maintenance Due Topic Date Due COVID-19 Vaccine (1) Never done Pneumococcal Vaccine: 65+ Years (1 - PCV) Never done DTaP,Tdap,and Td Vaccines (1 - Tdap) Never done Zoster Vaccines (1 of 2) Never done Depression Screening 04/26/2021 Influenza Vaccine (FLU shot) (1) Never done Current Medication List: (as of Visit date not found (in office), Visit date not found (telemedicine) ) Current Outpatient Medications Medication Sig Dispense Refill [...] Take 0.5 Tablets by mouth in the morning.45 Tablet 3 No current facility-administered medications for this visit. Current List of Allergies: (as of Visit date not found (in office), Visit date not found (telemedicine) ) Review of patient's allergies indicates: No Known Allergies Most Recent Lab Results: Results for orders placed or performed in visit on 06/27/23 CHEMISTRY-OUTSIDE Result Value Ref Range Not all results display below - see scan for full detail CREATININE-OUTSIDE LAB 0.60 0.52 - 1.04 MG/DL EGFR-OUTSIDE LAB 97.2 60 ML/MIN POTASSIUM-OUTSIDE LAB 4.3 3.5 - 5.1 MMOL GLUCOSE-OUTSIDE LAB 96 74 - 100 MG/DL HOURS FASTING TRIGLYCERIDES-OUTSIDE LAB 168 (A) 150 MG/DL CHOLESTEROL-OUTSIDE LAB 234 (A) 200 MG/DL HDL-OUTSIDE LAB 50.0 40 - 65 MG/DL CHOL/HDL RATIO-OUTSIDE LAB 4.7 5.1 RATIO LDL (CALCULATED)-OUTSIDE LAB 151.0 (A) 130 CALC LDL (DIRECT MEASURE)-OUTSIDE LAB HEMOGLOBIN, [id number] LAB PHOSPHORUS-OUTSIDE LAB PTH-OUTSIDE LAB MICROALBUMIN RATIO-OUTSIDE LAB <7 29 MG/G PROTEIN, UA-OUTSIDE LAB HEMOGLOBIN-OUTSIDE LAB 13.5 11.1 - 15.9 G/DL TSH Result Value Ref Range TSH - OUTSIDE LAB 1.050 0.465 - 4.680 UIU/ML Sincerely, Elizabeth Winters, DO 07/03/2023 MillieSumerian Calendar (as of Visit date not found (in office), Visit date not found (telemedicine) ) Care needs Care needs Last completed Due next COVID-19 Vaccine (1) --- Never done Pneumonia vaccine (1 - PCV) --- Never done Diphtheria, tetanus & pertussis vaccines (1 - Tdap) --- Never done Zoster (Shingles) Vaccine (1 of 2) --- Never done Flu vaccine (recommended) (1) --- Never done Kidney Function Test 06/09/2023 06/09/2024 Bone Density 02/04/2019 02/04/2026 Urine albumin/creatinine test 06/09/2023 06/09/2026 As you look over the recommended services, be sure to check with your insurance company to determine what's covered. [employer] is a great tool that helps you review your medical record online, including test results, doctor notes and your health summary. You can also schedule appointments with me and other members of your care team, request prescription refills and ask for advice related to your medical conditions at [email or web address]. Patient Instructions - Fall Prevention (This education is for all patients over 65 regardless of symptoms) Remember to take your current medications as prescribed. In order to prevent falls, you are encouraged to: Exercise Utilize assistive/adaptive devices Avoid multifocal lenses when walking Avoid hazards in home Maintain a regular toileting schedule Any questions please contact our office. Preventing Falls in the Home (This education is for all patients over 65 regardless of symptoms) As you get older, falls are more likely. Thats because your reaction time slows. Your muscles and joints may also get stiffer, making them less flexible. Illness, medications, and vision changes can also affect your balance. A fall could leave you unable to live on your own. To make your home safer, follow these tips: Floors Put nonskid pads under area rugs Remove throw rugs Replace worn floor coverings Tack carpets firmly to each step on carpeted stairs. Put nonskid strips on the edges of uncarpeted stairs Keep floors and stairs free of clutter and cords Arrange furniture so there are clear pathways Clean up any spills right away Bathrooms Install grab bars in the tub or shower Apply nonskid strips or put a nonskid rubber mat in the tub or shower Sit on a bath chair to bathe Use bathmats with nonskid backing Lighting Keep a flashlight in each room Put a nightlight along the pathway between the bedroom and the bathroom [employer] Patient Education Copyright 2008 - 2010 [employer] except where otherwise noted Kegel Exercises Kegel exercises dont require special clothing or equipment. Theyre easy to learn and simple to do. And if you do them right, no one can tell youre doing them, so they can be done almost anywhere. Your doctor, nurse, or physical therapist can answer any questions you have and help you get started. A Weak Pelvic Floor The pelvic floor muscles may weaken due to aging, and vaginal childbirth, injury, surgery, chronic cough, or lack of exercise. If the pelvic floor is weak, your bladder and other pelvic organs may sag out of place. The urethra may also open too easily and allow urine to leak out. Kegel exercises can help you strengthen your pelvic floor muscles so they can better support the pelvic organs and control urine flow. How Kegel Exercises Are Done Try each of the Kegel exercises described below. When youre doing them, try not to move your leg, buttock, or stomach muscles. While youre urinating, try to stop the flow of urine. Start and stop it as often as you can. Contract as if you were stopping your urine stream, but do it when youre not urinating. Tighten your rectum as if trying not to pass gas. Contract your anus, but dont move your buttocks. Helpful Hints Do your Kegels as often as you can. The more you do them, the faster youll feel the results. Pick an activity you do often as a reminder. For instance, do your Kegels every time you sit down. Tighten your pelvic floor before you sneeze, get up from a chair, cough, laugh, or lift. This protects your pelvic floor from injury and can help prevent urine leakage. Try to hold each Kegel for a slow count to five. You probably wont be able to hold them for thatlong at first, but keep practicing. It will get easier as your pelvic floor gets stronger. Eventually, special weights that you place in your vagina may be recommended to help make your Kegels even more effective. [employer] Patient Education Copyright 2008 - 2010 [employer] except where otherwise noted. documented in this encounter Progress Notes * Ksenia Joyner RN - 07/03/2023 11:09 AM EDT Adult Annual Wellness Visit: Millie Rendon is a 78 year old female who presents for an Adult Annual Wellness Visit. Depression Screening: Did the patient complete the screening questionnaire for Depression? Yes Is the patient's total score for Depression 15 or greater? No, no further intervention needed, unless requested by patient. Did the patient answer positively to the suicide question? No, no further intervention needed, unless requested by patient. In general, compared to other people your age, what would you say that your health is? Fair Ht Readings from Last 1 Encounters: 07/03/23 1.537 m (5' 0.5") Wt Readings from Last 1 Encounters: 07/03/23 85.3 kg (188 lb) Body Mass Index: BMI Greater than 30 Body mass index is 36.11 kg/m. BP Readings from Last 1 Encounters: 06/06/23 134/86 Medical/Surgical/Family History Reviewed: Yes Past Medical History: Diagnosis Date Cardiac pacemaker [...] performed by Nam Batista MD at [facility] CARPAL TUNNEL SURGERY Right 03/05/2016 NEUROPLASTY MEDIAN NERVE AT CARPAL TUNNEL performed by Nam Batista MD at [facility] PACEMAKER INSERTION PER 08/19/2017 PARTIAL HYSTERECTOMY Family History Problem Relation Age of Onset Coronary Artery disease Mother Coronary Artery disease Father Breast Cancer Cousin (Maternal) Has patient ever had cancer? No Social History Tobacco Use Smoking status: Never Smokeless tobacco: Never Substance Use Topics Alcohol use: No Vaping/E-Cigarette Use Vaping/E-Cigarette Use Never User Vaping/E-Cigarette Substances Vaping/E-Cigarette Devices Tobacco/Alcohol screening completed today? Yes Hospital Care: Admissions (within the last year): Not Applicable ER within 30 days: No Does the patient have an Advance Directives/Living Will? No. Does the patient want information? No.Patient declined information Last Physical Exam: Last physical exam: 05/2023 Does patient see primary provider regularly? Yes Does patient see other providers? Yes, Specialist Patient Care Team updated? Yes Review of patient's allergies indicates: No Known Allergies There is no immunization history on file for this patient. Current Outpatient Medications Medication Sig Dispense Refill [...] mouth in the morning. 45 Tablet 3 No current facility-administered medications for this visit. 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 Yes Patient takes medications as prescribed? Yes Patient manages own medications: Yes Patient uses a pill box? Yes, refill(s) completed by self Dental Exam: Yes: Every 6 Months Eye Screening: Yes: Every 6 months Are you having trouble with hearing? No Do you use an assistive device to help your hearing? No Exercise Screening: does not exercise regularly Nutrition Assessment: Eats a poorly balanced diet Pain Screening: Are you having any pain? No Sleep Screening Tool 'STOP': Do you snore? No Do you feel fatigued during the day? No Do you wake up feeling like you haven't slept? No Have you been told you stop breathing at night? No Do you gasp for air or choke while sleeping? No Have you been told you have Sleep Apnea? No Do you have high blood pressure or are on medication(s) to control high blood pressure? Yes SCORE: If you check YES to two or more questions, make a referral for Obstructive Sleep Apnea Patient and Caregiver Support System: Patient lives with a spouse Means of Transportation: Drives. Not a concern. Patient lives in One Story - with basement stairs: 12 with railings Community Resources: Not Applicable Functional Status and ADL Skills: Has patient ever had an amputation? No Functional Assessment: 100- Normal, no complaints, no evidence of disease Ambulation: Patient ambulates without assistive device. Independent Dressing: Gets clothes and dresses without any assistance: Independent Able to move freely in chair or bed including turning over: Independent Repositioning (bed or chair): Not applicable Transfers: Independent Toileting: Goes to bathroom, uses toilet, arranges clothes and returns without any assistance: Independent Toileting: continent of bladder and continent of bowel Feeding: Self Bathing: Self; tub/shower Requires none assistance with ADLs. Instrumental ADL's: Shopping: Independent Housekeeping: Independent Handling Finances: Independent DME Vendor Name: Not Applicable Fall Risk Assessment: Can the patient demonstrate that she can stand from a sitting position? Yes Has the patient had a fall within the last 6 months? No Does the patient have a problem with her gait or balance? No Does the patient take 4 or more prescription medicines? Yes Does the patient use sedatives or narcotics? No Fall Risk Factors Present: Uses more than 4 medications Older than age 70 Clh-Mc-hzl-Go Test: Time began at 1100. Patient stood from sitting position and walked approximately 10 feet, returned and sat down. Total time for sgj-gw-mdn-go test was 10 seconds. Mdc-La-asx-Go Test completed? Yes Gender Specific Preventative Plan: Health Maintenance Topic Date Due COVID-19 Vaccine (1) Never done Pneumococcal Vaccine: 65+ Years (1 - PCV) Never done DTaP,Tdap,and Td Vaccines (1 - Tdap) Never done Zoster Vaccines (1 of 2) Never done DXA Scan 02/04/2021 Influenza Vaccine (FLU shot) (1) Never done GFR 06/09/2024 Depression Screening 07/03/2024 Albumin/Creatinine Ratio 06/09/2026 Hepatitis B Aged Out MENINGOCOCCAL (MENACTRA/MENVEO) Aged Out GARDASIL-HPV IMMUNIZATION SERIES Aged Out Colorectal Cancer Screening Discontinued Follow Up/ Referrals/Handouts: No further action needed Routine general medical examination at a health care facility (Primary) Risk and functional assessment AWV completed today 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) -continue following with Rheumatology Rheumatoid arthritis involving multiple sites with positive rheumatoid factor (HCC) -continue following with Rheumatology Other hyperlipidemia -start medication as planned Lipid Panel Results: Results for orders placed or performed in visit on 11/11/17 LIPID PANEL Result Value Ref Range HOURS FASTING 12 hours Triglycerides 154 <200 mg/dL Cholesterol 158 <200 mg/dL HDL Cholesterol 33 (L) >39 mg/dL Cholesterol-HDL Ratio 4.8 LDL Cholesterol 94 0 - 129 mg/dL Results for orders placed or performed in visit on 03/21/22 LIPID PANEL WITH DIRECT LDL IF TG IS HIGH Result Value Ref Range Triglycerides 127 <=174 mg/dL Cholesterol 212 (H) <200 mg/dL HDL Cholesterol 51 >49 mg/dL Non-HDL Cholesterol 161 (H) <=159 mg/dL LDL Cholesterol 136 (H) <=129 mg/dL Primary hypertension - Med reconciliation completed and compliance discussed. - pt to continue present medications. BP Readings from Last 3 Encounters: 06/06/23 134/86 05/26/23 142/90 02/14/23 134/76 History of second degree heart block -continue following with Rheumatology Aortic valve disorder -continue following with Rheumatology Follow Up: Return in 1 year (on 07/03/2024) for 12 month Subsequent Adult Wellness Visit. | For: 12month Subsequent Adult Wellness Visit | Check-out note: 12 month Subsequent Adult Wellness Visit Would patient like to schedule next AWV visit? Yes Ksenia Joyner RN AD8 Dementia Screening Interview Person answering questions: patient Remember, "Yes, a change" indicates that there has been a change in the last several years caused by cognitive (thinking and memory) problems 1. Problems with judgement (eg: problems making decisions, bad financial decisions, problems with thinking). No (0) 2. Less interest in hobbies/activities. No (0) 3. Repeats the same things over and over (questions, stories, or statements). No (0) 4. Trouble learning how to use a tool, appliance, or gadget (eg: VCR, computer, microwave, remote control). No (0) 5. Forgets correct month or year. No (0) 6. Trouble handling complicated financial affairs (eg: balancing checkbook, income taxes, paying bills). No (0) 7. Trouble remembering appointments. No (0) 8. Daily problems with thinking and/or memory. No (0) TOTAL AD8: 0 - AD8 Dementia Screening Score The final score is a sum of the number items marked "Yes, A Change". 0 - 1: Normal cognition; 2 or greater: Cognitive impairments is likely to be present - further testing required documented in this encounter Miscellaneous Notes * Pt Handout (on AVS) - Ksenia Joyner RN - 07/03/2023 11:30 AM EDT [id number] Low-Cholesterol Diet Too much cholesterol in your blood can lead to problems such as blocked arteries. This can lead to heart attack and stroke. Eating meals that are low in saturated fat and cholesterol helps reduce thelevel of cholesterol in your blood. Below are eating tips to help you do this. There are 2 kinds of cholesterol in your blood: HDL (good) cholesterol. This prevents fat deposits (plaque) from building up in your arteries. In this way, it protects against heart disease and stroke. LDL (bad) cholesterol. This stays in your body and sticks to artery adhikari. Over time it may block blood flow to the heart and brain. This can cause a heart attack or stroke. The cholesterol in your blood comes from 2 sources. It comes in food that you eat. And it's also made by your liver. You need to limit the amount of cholesterol you eat. And you need to limit bad fats. Your body makes more cholesterol when your diet is high in bad fats. Understanding the fats you eat There are 3 kinds of fats in foods and drinks: Unsaturated fats. These include mono-unsaturated and poly-unsaturated fats. These are healthy fats. They raise the level of good cholesterol. They lower the level of bad cholesterol. Good fats arefound in vegetable oils. This includes olive, sunflower, corn, and soybean oils. Good fats are alsoin fish, nuts, and seeds. Saturated fats. These are unhealthy fats. These raise your risk of disease. They lower your goodcholesterol. They raise your bad cholesterol. Saturated fats are found in animal products. This includes meat, whole-milk dairy products, and butter. Some plants are high in saturated fats. This includes coconut and palm plants. Trans fats. These are unhealthy fats. They lower your good cholesterol. They raise your bad cholesterol. The main source of trans fats is processed food. These foods have partially hydrogenated oils. These are fats made by turning a liquid fat into a solid fat at room temperature. Trans fats arefound in hard (stick) margarines. They are in many fast foods, processed foods, and baked goods. Soft margarine sold in tubs has fewer trans fats. The FDA says that trans fats are no longer considered safe in foods. Creating a low-cholesterol diet The tips below will help you create healthy eating habits to lower your blood cholesterol level: Talk with your healthcare provider before starting a new diet. Read nutrition labels. Learn what healthy portion sizes look like. When cooking, use unsaturated vegetable oils. These include sunflower, corn, soybean, canola, peanut, and olive oils. Limit saturated fats. These are in animal products such as meat and whole- milk dairy foods. Poultry skin also has this type of fat. Plants high in saturated fats include coconut oil, palm oil, andpalm kernel oil. Eat more meatless meals. If you eat meat, eat smaller portions. Choose lean cuts. This includes round, kinsey, sirloin, or loin. Replace meat with fish at least 2 times a week. Fish is a good source of omega-3 fatty acids. This is a type of unsaturated fat. This fat may lower the risk of heart disease. Replace whole-milk dairy products with low-fat or nonfat products. Try soy products. Soy helps to reduce total cholesterol. Eat more fiber. Eat nuts, seeds, and whole grains. These foods lower both cholesterol and triglyceride levels. Triglycerides are another type of fat in the blood. Don?t eat white rice or white bread. Eat plenty of fresh fruits and vegetables daily. Limit fast foods and baked goods. Assume they have saturated fat and trans fat. Last Reviewed Date: 08/08/202119997372-9617 [employer]. All rights reserved. This information is not intended as a substitute for professional medical care. Always follow your healthcare professional's instructions. * Pt Handout (on AVS) - Ksenia Joyner RN - 07/03/2023 11:30 AM EDT [address]68 Preventing Falls: How to Prepare and What to Do Falling is not something you want to think about. But it can make a big difference to plan ahead. If you're prepared, you'll know how to get help. And you'll be less likely to panic if you fall. Thismeans you'll be able to do what's needed to get help right away. How to prepare Have someone check on you daily, either in person or by phone. Keep a list of emergency numbers near the phone. Always have a way to call for help. Keep a cell phone with you at all times. Or talk with your healthcare provider about how to set up a home monitoring service. This involves wearing a small device around your neck or wrist. If you fall, you can press the button on the device. This alerts emergency responders. Talk with your healthcare provider about an exercise program that's right for you. Regular exercise may reduce the risk of falling and the risk for injury related to a fall. Have good lighting in your home. Don't use throw rugs, because they can raise your risk of tripping and falling. Add grab bars in the bathroom to help reduce the risk of falling. Small changes canmake your home safer. Talk with your healthcare provider about making your home safer. What to do if you fall Above all, try to stay calm: If you start to fall, try to relax your body. This will reduce the impact of the fall. After you fall, press your monitor button, or use your phone to call for help. Don't acosta to get up. First, make sure you're not hurt. Roll onto your side, then crawl to a chair. Pull yourself up onto the chair slowly. Get checked if you struck your head, lost consciousness, were confused afterward, or have any other concerns for injury. Tell your healthcare provider that you fell. They can check you for injuries as needed, try to determine what made you fall, and help prevent you from falling again. A note to family and friends If you're with a loved one when they start to fall, don't try to stop the fall. Ease the person to the floor carefully, so neither of you gets hurt. Don't leave the person alone. And don't try to move them, especially if they may have hurt their head or neck. Check for injuries. If help is needed right away, call 911. Last Reviewed Date: 08/08/202219992743-0432 [employer]. All rights reserved. This information is not intended as a substitute for professional medical care. Always follow your healthcare professional's instructions. * Pt Handout (on AVS) - Ksenia Joyner RN - 07/03/2023 11:30 AM EDT Images from the original note were not included. [address] Exercises to Prevent Falls Certain types of exercises may help make you less likely to fall. Try the ones below or do other exercises that your healthcare provider suggests. Depending on your health, you may need to start slowly. Don't let that stop you. Even small amountsof exercise can help you. Talk with your healthcare provider before starting any exercise program. Improve balance Many types of exercise can help improve balance. Gris chi and yoga are good examples. Here's anotherone to try. You can do it anytime and almost anywhere. Stand next to a counter or solid support. Push yourself up onto your tiptoes. Hold for 5 seconds. If you start to lose your balance, hold on to the counter. Rest and repeat 5 times. Work up to holding for 20 to 30 seconds, if you can. Increase flexibility Being more flexible makes it easier for you to move around safely. Try exercises like the seatedhamstring stretch. o Sit in a chair and put one foot on a stool. o Straighten your leg and reach with both hands down either side of your leg. Reach as far down your leg as you can. o Hold for about 20 seconds. o Go back to the starting position. Then repeat 5 times. Switch legs. o o Build strength o Resistance exercises help build strength. You can do them without equipment. Or you can use weights, elastic bands, or special machines. One such exercise is called the biceps curl. You can hold a 1-pound weight or even a can of soup. Do this exercise at least 3 times a week. Strive for every day. Sit up straight in a chair. Keep your elbow close to your body and your wrist straight. Bend your arm, moving your hand up to your shoulder. Then slowly lower your arm. Repeat 5 times. Switch to the other arm. Build your staying power Aerobic exercises make your heart and lungs stronger so you can keep moving longer. Walking and swimming are 2 of the best types of exercises you can do. Using a stationary bike is great, too. Find an aerobic exercise that you enjoy. Start slowly and build up. Even 5 minutes is helpful. Aim for a goal of 30 minutes, at least 3 times a week. You don't have to do 30 minutes in 1 session. Break it up and walk a little throughout the day. Starting out safely and slowly Start easy. Slowly work up to doing more. Talk with your healthcare provider about the best exercises for you. Call senior centers or health clubs about exercise programs. If needed, have a family member watch you walk every so often to check your stability. Exercise with a friend. Choose an activity you both enjoy. Be sure to gently warm up and cool down. Drink fluids, such as water, to stay hydrated. If your provider recommended that you limit fluids, ask them how much is OK to drink while exercising. Consider gris chi or yoga to strengthen your balance. Try exercises that you can do anytime, anywhere. Here are 2 examples. Have someone with you whenyou first try these: o Practice walking by placing one foot right in front of the other. o Stand up and sit down 10 times. Repeat this throughout the day. Last Reviewed Date: 07/09/202219998198-4848 [employer]. All rights reserved. This information is not intended as a substitute for professional medical care. Always follow your healthcare professional's instructions. documented in this encounter Plan of Treatment Upcoming Encounters Date Type Department Care Team (Late st Contact Info) Description 10/14/2023 10:00 AM EST Cardiac Studies [facility]iology [place] [address] [place] [address] [place] [address] [place] [address] 11/26/2023 7:40 AM EDT Office Visit Family Practice [address] [place] [address] Elizabeth Winters DO [address] [place] [address] 07/08/2024 10:00 AM EDT Nurse Only [facility] [address] [place] [address] [place], Nurse Annual Wellness Cold [address] [place] [address] Health Maintenance Due Date Last Done Comments COVID-19 Vaccine (#1) 1950 Pneumococcal Vaccine: 65+ Years (1 - PCV) 1951 DTaP,Tdap,and Td Vaccines (1 - Tdap) 1966 Zoster Vaccines (1 of 2) 1966 DXA Scan 02/04/2021 02/04/2019 Influenza Vaccine (FLU shot) (#1) 2023 GFR 06/09/2024 06/09/2023, 03/08, 06/26/2021, Additional history [...] as of this encounter Visit Diagnoses Diagnosis Routine general medical examination at a health care facility- Primary Risk and functional assessment Screening for unspecified condition 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 [place] [address] PCP - General Family Medicine 04/26/20 documented as of this encounter
--- OUTSIDE RECORDS SUMMARY | 2023-12-09 06:23 | External Medical Summary | Summary of Care ---
Author Name Unknown Organization [facility] Address [address] [facility] [place] [address] Phone [phone] Care Team Providers Care Necktie Centralizing Machine Operator Name Role Phone Elizabeth Winters DO Primary Care Provider +1- [phone] Reason for Visit * Reason Onset Date Comments Test Results Lab 06/27/2023 Encounter Details Date Type Department Care Team (Late st Contact Info) Description 06/27/2023 Telephone Family Practice [facility] [address] [place] [address] Elizabeth Winters DO [address] [place] [address] Test Results Lab Allergies No known active allergiesdocumented as of [...] program 08/24/2018 04/10/2020 Overview: DO NOT DELETE [facility] [place] DETECT Study: Project # [id number], Laborer Landscape: Cole Perez, PhD. SUMMARY: Goal: Establish test [...] contact study staff at ; after hours Laborer Landscape via the [facility] hospital multiple punch press operator . Please contact study team before resolving/deleting from patients problem list. Study phone number: [phone]. Diagnosis changed due to Research Module. Go to Snapshot for study details. Encounter for examination fo r normal comparison and control in clinical research program 08/24/2018 05/09/2022 Overview: DO NOT DELETE - [facility] Study: Project # [id number], Laborer Landscape: Jass Felix, MS, MPH. SUMMARY: Goal: Establish [...] contact study staff at ; after hours Laborer Landscape via the [facility] hospital multiple punch press operator . - Please contact study team before resolving/deleting from patients problem list. Study phone number: [phone]. Diagnosis changed due to Research Module. Go [...] Information Value Date Recorded Sex Assigned at Not on file Gender Identity Not on file Sexual Orientation Not on file Job Start Date Occupation Industry Not on file Not on file Not on file documented as of this encounter Miscellaneous Notes * Telephone Encounter - Ksenia Joyner RN - 07/03/2023 11:11 AM EDT Pt is agreeable to starting medication. She uses [facility] * Telephone Encounter - Tori Montes De Oca LPN - 07/02/2023 1:38 PM EDT Left message for pt to return call for update * Telephone Encounter - Elizabeth Winters DO - 06/27/2023 3:40 PM EDT Labs reviewed that were done through Rheumatology Please let patient know that overall they look too bad, her cholesterol continues to remain elevated Would consider adding in either a low-dose statin or possibly Zetia to help with her cholesterol If agreeable will send to pharmacy documented in this encounter Plan of Treatment Upcoming Encounters Date Type Department Care Team (Late st Contact Info) Description 10/14/2023 10:00 AM EST Cardiac Studies Cardiology [facility] [address] [place] [address] [facility] [address] [place] [address] 11/26/2023 7:40 AM EDT Office [facility] [address] [place] [address] Elizabeth Winters DO [address] [place] [address] Health Maintenance Due Date Last Done Comments COVID-19 Vaccine (#1) 1950 Pneumococcal Vaccine: 65+ Years (1 - PCV) 1951 DTaP,Tdap,and Td Vaccines (1 - Tdap) 1966 Zoster Vaccines (1 of 2) 1966 Depression Screening 04/26/2021 04/26/2020 Influenza Vaccine (FLU shot) (#1) 2023 GFR 06/09/2024 06/09/2023, 03/08, 06/26/2021, Additional history exists DXA Scan 02/04/2026 02/04/2019 Albumin/Creatinine Ratio 06/09/2026 06/09/2023, 03/2019 Colorectal Cancer [...] filedocumented as of this encounter Care Teams Necktie Centralizing Machine Operator Relationship Specialty Start Date End Date Elizabeth Winters DO [address] [place] [address] PCP - General Family Medicine 04/26/20 documented as of this encounter
--- OUTSIDE RECORDS SUMMARY | 2023-12-09 06:23 | External Medical Summary | Summary of Care ---
Author Name Unknown Organization [facility] Address [address] [place] [place] [address] Phone [phone] Care Team Providers Care Conditioning Yard Supervisor Name Role Phone WintersElizabeth badillo Primary Care Provider +1- [phone] Encounter Details Date Type Department Care Team Description 06/28/2023 Result Scan Unspecified Department Jacklyn Lake DO [address] [facility] [place] [address] <No scans attached> Allergies No known active allergiesdocumented as of this encounter (statuses as of 06/28/2023) Medications Medication Sig Dispensed Refills Start Date [...] as of this encounter (statuses as of 06/28/2023) Active Problems Problem Noted Date Severe obesity with body mas s index (BMI) of 35.0 to 39.9 with serious comorbidity 11/26/2021 Carpal tunnel syndrome 09/23/2019 Aortic valve disorder 02/24/2019 Rheumatoid arthritis involvi ng multiple sites with positive rheumatoid factor 10/23/2018 Cardiac pacemaker in situ 11/10/2017 HTN (hypertension) 09/25/2017 Vitamin D deficiency 09/25/2017 Osteochondropathy 09/25/2017 Hyperlipidemia History of second degree heart block Vasculitis determined by biopsy of muscl e documented as of this encounter (statuses as of 06/28/2023) Resolved Problems Problem Noted Date Resolved Date Other hyperlipidemia 09/23/2019 09/23/2019 Encounter for long-term (current) use of medicat ions 10/23/2018 09/23/2019 Encounter for examination fo r normal comparison and control in clinical research program 08/24/2018 04/10/2020 Overview: DO NOT DELETE [facility] DETECT Study: Project # [id number], Stereo Equipment Salesperson: Cole Perez, PhD. SUMMARY: Goal: Establish test [...] contact study staff at ; after hours Stereo Equipment Salesperson via the [facility] lithograph press operator . Please contact study team before resolving/deleting from patients problem list. Study phone number: [phone]. Diagnosis changed due to Research Module. Go to Snapshot for study details. Encounter for examination fo r normal comparison and control in clinical research program 08/24/2018 05/09/2022 Overview: DO NOT DELETE - [facility] Study: Project # [id number], Stereo Equipment Salesperson: Jass Felix, MS, MPH. SUMMARY: Goal: Establish [...] contact study staff at ; after hours Stereo Equipment Salesperson via the [facility] hospital lithograph press operator . - Please contact study team before resolving/deleting from patients problem list. Study phone number: [phone]. Diagnosis changed due to Research Module. Go to NI for study details. Mild protein-calorie malnutrition 08/21/2018 11/24/2020 Pure hypercholesterolemia 09/25/20172017 Second degree AV block 09/25/2017 8 Overview: GERDA Keenan 08/19/17 Carpal tunnel syndrome 02/29/2016 8 Hypertension 03/06/2018 documented as of this encounter (statuses as of 06/28/2023) Immunizations No known immunizationsdocumented as of this encounter Social History Tobacco Use Types Packs/Day Years Used Date Smoking Tobacco: Never Smokeless Tobacco: Never Alcohol Use Standard Drinks/Week Comments No 0 (1 standard drink = 0.6 oz pur e alcohol) Food Insecurity Answer Date Recorded Within the past 12 months, y ou worried that your food would run out before you got money to buy more. Never true 09/23/2019 Within the past 12 months, t he food you bought just didn't last and you didn't have money to get more. Never true 09/23/2019 Sex Assigned at Date Recorded Not on file Job Start Date Occupation Industry Not on file Not on file Not on file documented as of this encounter Plan of Treatment Upcoming Encounters Date Type Specialty Care Team Description 07/03/2023 Nurse Only [facility], Nurse Annual Wellness Cold [address] [place] [address] 10/14/2023 Cardiac Studies Cardiology [facility] [address] [facility] [place] [address] 11/26/2023 Office Visit Family Medicine Elizabeth Winters, DO [address] [place] [address] Health Maintenance Due Date Last Done Comments [...] Date/Time Associated Diagnosis Comments CARDIOLOGY SCANNED RESULT 06/28/2023 documented in this encounter Results * CARDIOLOGY SCANNED RESULT (06/28/2023) 06/28/2023 Jacklyn Lake DO OTHER documented in this encounter Care Teams Conditioning Yard Supervisor Relationship Specialty Start Date End Date Elizabeth Winters DO [address] [facility] [place] [address] PCP - General Family Medicine 04/26/20 documented as of this encounter
--- OUTSIDE RECORDS SUMMARY | 2023-12-09 06:23 | External Medical Summary | Summary of Care ---
Author Name Unknown Organization [facility] Address [address] [facility] [place] [address] Phone [phone] Care Team Providers Care Telecommunications Switch Technician Name Role Phone Elizabeth Winters DO Primary Care Provider +1- [phone] Reason for Visit * Reason Onset Date Comments Advice 08/25/2023 Encounter Details Date Type Department Care Team (Late st Contact Info) Description 08/25/2023 Telephone Family Practice [place] Chantell De [address] [place] [address] [facility] [address] [facility] [address] Advice Allergies No known active allergiesdocumented as of this encounter (statuses as of 08/25/2023) Medications Medication Sig Dispensed Refills Start Date [...] as of this encounter (statuses as of 08/25/2023) Active Problems Problem Noted Date Diagnosed Date [...] as of this encounter (statuses as of 08/25/2023) Resolved Problems Problem Noted Date Diagnosed Date Resolved Date Other hyperlipidemia 09/23/2019 020 Encounter for long-term (cur rent) use of medications 10/23/2018 09/23/2019 Encounter for examination fo r normal comparison and control in clinical research program 08/24/2018 04/10/2020 Overview: DO NOT DELETE [facility] DETECT Study: Project # [id number], Shark Biologist: Cole Perez, PhD. SUMMARY: Goal: Establish test [...] contact study staff at ; after hours Shark Biologist via the [facility] chenille machine operator . Please contact study team before resolving/deleting from patients problem list. Study phone number: [phone]. Diagnosis changed due to Research Module. Go to Snapshot for study details. Encounter for examination fo r normal comparison and control in clinical research program 08/24/2018 05/09/2022 Overview: DO NOT DELETE - [facility] DETECT Study: Project # [id number], Shark Biologist: Jass Felix, MS, MPH. SUMMARY: Goal: Establish [...] contact study staff at ; after hours Shark Biologist via the [facility] chenille machine operator . - Please contact study team before resolving/deleting from patients problem list. Study phone number: [phone]. Diagnosis changed due to Research Module. Go to Snapshot for study details. Mild protein-calorie malnutrition 08/21/2018 11/24/2020 Pure hypercholesterolemia 09/25/2017 Second degree AV block 09/25/201703/06 Overview: GERDA Keenan 08/19/17 Carpal tunnel syndrome 02/29/201603/06 Hypertension 03/06/2018 documented as of this encounter (statuses as of 08/25/2023) Immunizations No known immunizationsdocumented as of this [...] encounter Miscellaneous Notes * Telephone Encounter - Elizabeth Winters DO [...] Description 09/17/2023 10:40 AM EST Office Visit Family Practice [address] [place] [address] Sukh Robin PA-C [address] [place] [address] 10/14/2023 10:00 AM EST Cardiac Studies Cardiology [place] [address] [place] [address] [place], [facility] [address] [place] [address] 11/26/2023 7:40 AM EDT Office Visit [facility] [address] [place] [address] Elizabeth Winters DO [address] [place] [place] [address] 01/14/2024 10:00 AM EDT Office Visit Cardiology, [facility] [address] [place] [address] Shreyas Jackson PA-C [address] [place] [address] 07/08/2024 10:00 AM EDT Nurse Only Ancillary [place] Roque De La Cruzdon [address] [place] [address] [place], Nurse Annual Wellness Cold [address] [place] [address] Health Maintenance Due Date Last Done Comments [...] filedocumented as of this encounter Care Teams Telecommunications Switch Technician Relationship Specialty Start Date End Date Elizabeth Winters DO [address] [facility] [place] [address] PCP - General Family Medicine 04/26/20 documented as of this encounter
--- OUTSIDE RECORDS SUMMARY | 2023-12-09 06:23 | External Medical Summary | Summary of Care ---
Author Name Unknown Organization [facility] Address [address] [place] [facility] [address] Phone [phone] Care Team Providers Care Zinc Furnace Charger Name Role Phone SinghElizabeth Sherie COREAS Primary Care Provider +1- [phone] Reason for Visit * Reason Comments Routine Exam Reports had shingles around Thanksgiving, still having some pain. Encounter Details Date Type Department Care Team (Late st Contact Info) Description 09/17/2023 10:40 AM EST [facility] [place] [address] [place] [address] Sukh Robin PA-C [address] [place] [address] Herpes zoster with other complication*; Primary hypertension; Hyperlipidemia with target LDL less than 100; Vitamin D deficiency; Cardiac pacemaker in situ; Rheumatoid arthritis involving multiple sites with positive rheumatoid factor (HCC); Severe obesity with body mass index (BMI) of 35.0 to 39.9 with serious comorbidity (HCC) Allergies No known active allergiesdocumented as of this encounter (statuses as of 09/17/2023) Medications Medication Sig Dispensed Refills Start Date [...] capsules at bedtime, Reported on 09/17/2023 Vitamin D (Cholecalciferol) 25 MCG (1000 UT) Oral Tablet Take by mouth. 0 Active Rosuvastatin Calcium 10 MG Oral Tablet (Crestor)Indication s:Hyperlipidemia with target LDL less than 100 Take 1 Tablet by mouth in the morning. 90 Tablet 1 09/17/2023 Active Vitamin E 400 UNIT Oral Capsule [...] as of this encounter (statuses as of 09/17/2023) Active Problems Problem Noted Date Diagnosed Date [...] as of this encounter (statuses as of 09/17/2023) Resolved Problems Problem Noted Date Diagnosed Date Resolved Date Other hyperlipidemia 09/23/2019 020 Encounter for long-term (cur rent) use of medications 10/23/2018 09/23/2019 Encounter for examination fo r normal comparison and control in clinical research program 08/24/2018 04/10/2020 Overview: DO NOT DELETE [facility] DETECT Study: Project # [id number], Cloud Physicist: Cole Perez, PhD. SUMMARY: Goal: Establish test [...] contact study staff at ; after hours Cloud Physicist via the [facility] hospital ethylbenzene converter operator . Please contact study team before resolving/deleting from patients problem list. Study phone number: [phone]. Diagnosis changed due to Research Module. Go to Snapshot for study details. Encounter for examination fo r normal comparison and control in clinical research program 08/24/2018 05/09/2022 Overview: DO NOT DELETE - [facility] DETECT Study: Project # [id number], Cloud Physicist: Jass Felix, MS, MPH. SUMMARY: Goal: Establish [...] contact study staff at ; after hours Cloud Physicist via the [facility] hospital ethylbenzene converter operator . - Please contact study team before resolving/deleting from patients problem list. Study phone number: [phone]. Diagnosis changed due to Research Module. Go to Snapshot for study details. Mild protein-calorie malnutrition 08/21/2018 11/24/2020 Pure hypercholesterolemia 09/25/2017 Second degree AV block 09/25/201703/06 Overview: GERDA Keenan 08/19/17 Carpal tunnel syndrome 02/29/201603/06 Hypertension 03/06/2018 documented as of this encounter (statuses as of 09/17/2023) Immunizations No known immunizationsdocumented as of this [...] Sign Reading Time Taken Comments Blood Pressure 122/70 09/17/2023 11:00 AM EST Pulse 64 09/17/2023 11:00 AM EST Temperature 36.3 C (97.3 F) 09/17/2023 11:[address] Respiratory Rate 18 09/17/2023 11:00 AM EST Oxygen Saturation 97% 09/17/2023 11:00 AM EST Inhaled Oxygen Concentration - - Weight 85.4 kg (188 lb 3.2 oz) 09/17/2023 11:00 AM EST Height 153.7 cm (5' 0.5") 09/17/2023 11:00 AM ES T Body Mass Index 36.15 09/17/2023 11:00 AM EST documented in this encounter Progress Notes * Sukh Robin PA-C - 09/17/2023 11:13 AM EST Images from the original note were not included. History of Present Illness Millie Rendon is a 78 year old female that presents for routine visit. She was diagnosed and treated for shingles starting on 07/26/2023. She unfortunately did develop significant neuritis, so she was evaluated by us in 08/2023 and started on gabapentin. Her symptoms has been fortunately improving, and she does note significant improvement with the gabapentin. She currently takes 300 mg in the morning, 300 in the afternoon, and 600 in the evening. She is questioninghow long she needs to remain on it. Blood pressure well-controlled. Follows with cardiology for history of arrhythmia. 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 Reports feeling well from a cardiac standpoint. Last visit with Cardiologywas 05/2023. Denies any chest pain, shortness of breath, lightheadedness, palpitations. Pt with no known personal hx of CAD; nonsmoker. FMHx of CAD in both mother and father. Father first diagnosed in 60s. LDL was 151 in 06/2023. Ideally would like to get LDL < 100. She does take zetia. Will tryadding crestor. Follows with rheumatology in [place] for history of RA. Last labs from 06/2023 showed sed rate of 22, normal CRP; TSH normal at 1.05; BMP and hepatic panel normal; CBC essentially normal also. Mammogram 05/2023 normal. Plan to repeat 1 year which is already scheduled. DEXA 10/2021 completed by Rheumatology showed osteopenia. Does not follow with assembler unit; hx of hysterectomy but no hx of abnormal pap. Does not wish follow routinely. No recent colonoscopy. Denies black/bloody stools. She has cologuard at home and is willing to complete. 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 90 Tablet 5 Valsartan 320 MG Oral Tablet (Diovan) Take 1 Tablet by mouth in the morning. 90 Tablet 1 hydroCHLOROthiazide 12.5 MG Oral Tablet (Hydrodiuril) Take 0.5 Tablets by mouth in the morning. 45 Tablet 3 Ezetimibe 10 MG Oral Tablet (Zetia) Take 1 Tablet by mouth in the morning. 90 Tablet 3 Gabapentin 300 MG Oral Capsule (Neurontin) Take 1 Capsule by mouth at bedtime. (Patient taking differently: Take 1 Capsule by mouth. Taking 1 capsule in the morning, 1 capsule in the afternoon, and 2capsules at bedtime) 90 Capsule 3 Vitamin D (Cholecalciferol) 25 MCG (1000 UT) Oral Tablet Take by mouth. Rosuvastatin Calcium 10 MG Oral Tablet (Crestor) Take 1 Tablet by mouth in the morning. 90 Tablet 1 No current facility-administered medications for this visit. 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 HENT: Negative. Eyes: Negative. Respiratory: Negative. Negative for shortness of breath. Cardiovascular: Negative. Negative for chest pain, palpitations and leg swelling. Gastrointestinal: Negative. Negative for abdominal pain, blood in stool, constipation, diarrhea, nausea and vomiting. Endocrine: Negative. Genitourinary: Negative. Negative for dysuria. Musculoskeletal: Positive for arthralgias, back pain and myalgias. Skin: Negative. Negative for rash. Allergic/Immunologic: Negative. Neurological: Negative. Negative for syncope and light-headedness. Hematological: Negative. Psychiatric/Behavioral: Negative. All other systems reviewed and are negative. Physical Exam BP 122/70 | Pulse 64 | Temp 36.3 C (97.3 F) | Resp 18 | Ht 1.537 m (5' 0.5") | Wt 85.4 kg (188 lb 3.2 oz) | SpO2 97% | BMI 36.15 kg/m | BSA 1.91 m Physical Exam Vitals and nursing note reviewed. Constitutional: Appearance: Normal appearance. She is obese. HENT: Head: Normocephalic and atraumatic. Right Ear: Tympanic membrane, ear canal and external ear normal. Left Ear: Tympanic membrane, ear canal and external ear normal. Nose: Nose normal. Mouth/Throat: Mouth: Mucous membranes are moist. Pharynx: Oropharynx is clear. Eyes: Extraocular Movements: Extraocular movements intact. Conjunctiva/sclera: Conjunctivae normal. Pupils: Pupils are equal, round, and reactive to light. Cardiovascular: Rate and Rhythm: Normal rate and regular rhythm. Pulses: Normal pulses. Heart sounds: Normal heart sounds. No murmur heard. Pulmonary: Effort: Pulmonary effort is normal. Breath sounds: Normal breath sounds. No wheezing, rhonchi or rales. Abdominal: General: Abdomen is flat. Bowel sounds are normal. Palpations: Abdomen is soft. Tenderness: There is no abdominal tenderness. There is no guarding or rebound. Musculoskeletal: General: Normal range of motion. Cervical back: Normal range of motion and neck supple. Comments: RA deformity of her fingers/MCPs/PIPs is a both hands Skin: General: Skin is warm. Findings: No rash. Neurological: General: No focal deficit present. Mental Status: She is alert and oriented to person, place, and time. Psychiatric: Mood and Affect: Mood normal. Behavior: Behavior normal. Thought Content: Thought content normal. Judgment: Judgment normal. I have reviewed most recent labs BMP results Recent Labs Units 06/09/23 0000 03/21/22 1128 SODIUM - [facility] mmol/L -- 143 POTASSIUM - [facility] mmol/L -- 4.5 POTASSIUM-OUTSIDE LAB MMOL 4.3 -- CHLORIDE - [facility] mmol/L -- 105 CO2 - [facility] mmol/L -- 25 CREATININE - [facility] mg/dL -- 0.7 CREATININE-OUTSIDE LAB MG/DL 0.60 -- BUN - [facility] mg/dL -- 16 Lipid panel results Recent Labs Units 06/09/23 0000 03/21/22 1128 CHOLESTEROL - [facility] mg/dL -- 212* CHOLESTEROL-OUTSIDE LAB MG/DL 234* -- LDL CHOLESTEROL (CALCULATED) - [facility] mg/dL -- 136* LDL (CALCULATED)-OUTSIDE LAB CALC 151.0* -- HDL CHOLESTEROL - [facility] mg/dL -- 51 HDL-OUTSIDE LAB MG/DL 50.0 -- TRIGLYCERIDES - [facility] mg/dL -- 127 TRIGLYCERIDES-OUTSIDE LAB MG/DL 168* -- CBC results Recent Labs Units 06/09/23 0000 07/29/22 0000 03/21/22 1128 WBC AUTO - [facility] K/uL -- -- 7.91 HGB - [facility] g/dL -- -- 13.9 HEMOGLOBIN-OUTSIDE LAB G/DL 13.5 13.7 -- HCT - [facility] % -- -- 41.3 PLATELET AUTO - [facility] K/uL -- -- 279 HbA1c results No results for input(s): "HGBA1C" in the last 47320 hours. TSH results Recent Labs Units 06/09/23 0000 TSH - OUTSIDE LAB UIU/ML 1.050 Vitamin D results Recent Labs Units 03/21/22 1128 25-HYDROXY VITAMIN D - [facility] ng/mL 27 Hepatic panel results Recent Labs Units 03/21/22 1128 PROTEIN - [facility] g/dL 7.1 BILIRUBIN, TOTAL - [facility] mg/dL 0.4 ALKALINE PHOSPHATASE - [facility] U/L 73 AST - [facility] U/L 25 ALT - [facility] U/L 27 Protein/cr ratio results No results for input(s): "PROCRRATIO" in the last 91979 hours. Assessment and Plan Herpes zoster with other complication The neuritis from her bout with shingles in 07/2023 is definitely improving, and she does noticed significant improvement with the gabapentin. She will slowly try to decrease her dose by 300 mg at a time, and will let us know if she has any problems with this. Primary hypertension Currently well-controlled. Hyperlipidemia with target LDL less than 100 LDL is not at goal. Will add rosuvastatin and plan to repeat cholesterol labs in 3 months. - LIPID PANEL WITH DIRECT LDL IF TG IS HIGH; Future - Rosuvastatin Calcium 10 MG Oral Tablet (Crestor); Take 1 Tablet by mouth in the morning. Vitamin D deficiency Cardiac pacemaker in situ Follows with cardiology. Rheumatoid arthritis involving multiple sites with positive rheumatoid factor (HCC) Follows with rheumatology. Severe obesity with body mass index (BMI) of 35.0 to 39.9 with serious comorbidity (HCC) Wrap-Up Follow Up: Return in about 6 months (around 03/17/2024), or if symptoms worsen or fail to improve, for Return with AP. | For: Return with AP Time: I spent a total of 20-29 minutes (exact time 24 mins) on the date of service in preparation, delivery, and documentation of the care provided to Millie Rendon excluding any time spent in the performance of separately billed services. documented in this encounter Nursing Notes * Tori Montes De Oca LPN - 09/17/2023 11:01 AM EST Chief Complaint Patient presents with Routine Exam Reports had shingles around Thanksgiving, still having some pain. documented in this encounter Plan of Treatment Upcoming Encounters Date Type Department Care Team (Late st Contact Info) Description 10/14/2023 10:00 AM EST Cardiac Studies Cardiology [address] [place] [address] [address] [facility] [address] [place] [address] 11/26/2023 7:40 AM EDT Office Visit Family Practice [place] [address] [place] [address] Elizabeth Winters DO [address] [place] [address] 01/14/2024 10:00 AM EDT Office Visit Cardiology, [facility] [address] [place] [address] Shreyas Jackson PA-C [address] [place] [address] 04/20/2024 10:00 AM EDT Office Visit Family Practice [address], [place] [address] [place] [address] Sukh Robin PA-C [address] [place] [address] 07/08/2024 10:00 AM EDT Nurse Only Ancillary [address], [place] [address] [place] [address] [place], Nurse [facility] [address] [place] [address] Scheduled Orders Name Type Priority Associated Diagnoses Orde r Schedule LIPID PANEL WITH DIRECT LDL IF TG IS HIGH Lab Routine Hyperlipidemia with target LDL less than 100 Expected: 12/17/2023 (Approximate), Expires: 09/17/2024 Health Maintenance Due Date Last Done Comments [...] Diagnosis Herpes zoster with other complication- Primary Primary hypertension Unspecified essential hypertension Hyperlipidemia with target LDL less than 100 Other and unspecified hyperlipidemia Vitamin D deficiency Unspecified vitamin D deficiency Cardiac pacemaker in situ Rheumatoid arthritis involving multiple sites with positive rheumatoid factor (HCC) Severe obesity with body mass index (BMI) of 35.0 to 39.9 with serious comorbidity (HCC) documented in this encounter Care Teams Zinc Furnace Charger Relationship Specialty Start Date End Date Elizabeth Winters DO [address] [facility] [place] [address] PCP - General Family Medicine 04/26/20 documented as of this encounter
--- OUTSIDE RECORDS SUMMARY | 2023-12-09 06:23 | External Medical Summary | Summary of Care ---
Author Name Unknown Organization [facility] Address [address] [place] [place] [address] Phone [phone] Care Team Providers Care Electric Truck Operator Name Role Phone Elizabeth Winters DO Primary Care Provider [phone]- [phone] Reason for Visit * Reason Onset Date Comments Pre Cert/Prior Auth 08/25/2023 Encounter Details Date Type Department Care Team (Late st Contact Info) Description 08/25[facility]2023 [facility] [address] [facility] [place] [address] Elizabeth Winters DO [address] [place] [address] Pre Cert/Prior Auth Allergies No known [...] program 08/24/2018 04/10/2020 Overview: DO NOT DELETE [facility] DETECT Study: Project # [id number], Mail Room Clerk: Cole Perez, PhD. SUMMARY: Goal: Establish [...] contact study staff at ; after hours Mail Room Clerk via the [facility] hospital creasing machine operator . Please contact study team before resolving/deleting from patients problem list. Study phone number: [phone]. Diagnosis changed due to Research Module. Go to Snapshot for study details. Encounter for examination fo r normal comparison and control in clinical research program 08/24/2018 05/09/2022 Overview: DO NOT DELETE - [facility] DETECT Study: Project # [id number], Mail Room Clerk: Jass Felix, MS, MPH. SUMMARY: Goal: [...] contact study staff at ; after hours Mail Room Clerk via the [facility] hospital creasing machine operator . - Please contact study team before resolving/deleting from patients problem list. Study phone number: [phone]. Diagnosis changed due to Research Module. Go [...] encounter Miscellaneous Notes * Telephone Encounter - Madie Barclay, freezing machine operator - 09/22/2023 11:26 AM EST Pharmacy calling [...] and 2 capsules at bedtime Preferred pharmacy: [address] [facility] [place] Thank you, Madie Barclay Professor Of Theater [employer] [facility] (Formerly [...] 10/14/2023 10:00 AM EST Cardiac Studies Cardiology [address] [place] [address] [facility] [address] [place] [address] 11/26/2023 7:40 AM EDT Office Visit Family Practice [address], [place] [address] [place] [address] Elizabeth Winters DO [address] [place] [address] 01/14/2024 10:00 AM EDT Office Visit Cardiology, [facility] [address] [place] [address] Shreyas Jackson PA-C [address] [place] [address] 04/20/2024 10:00 AM EDT Office Visit Family Practice [address], [place] [address] [place] [address] Sukh Robin PA-C [address] [place] [address] 07/08/2024 10:00 AM EDT Nurse Only Ancillary [address], [place] [address] [place] [address] [address] [address], Nurse [facility] [address] [place] [address] Health Maintenance Due Date Last Done Comments [...] filedocumented as of this encounter Care Teams Electric Truck Operator Relationship Specialty Start Date End Date Elizabeth Winters DO [address] [facility] [place] [address] PCP - General Family Medicine 04/26/20 documented as of this encounter
--- OUTSIDE RECORDS SUMMARY | 2023-12-09 06:23 | External Medical Summary | Summary of Care ---
Author Name Unknown Organization [facility] Address [address] [place] [place] [address] Phone [phone] Care Team Providers Care Software Support Engineer Name Role Phone SinghElizabeth Sherie COREAS Primary Care Provider +1- [phone] Reason for Visit * Reason Comments Routine Exam Reports had shingles around Thanksgiving, still having some pain. Encounter Details Date Type Department Care Team (Late st Contact Info) Description 09/17/2023 10:40 AM EST Office Visit [facility] [place] [address] [place] [address] Sukh Robin PA-C [address] [place] [address] Herpes zoster with other [...] 08/24/2018 04/10/2020 Overview: DO NOT DELETE [facility] DETECT Study: Project # [id number], [place] Farmer: Cole Perez, PhD. SUMMARY: Goal: Establish test [...] contact study staff at ; after hours [place] Farmer via the [facility] hospital blindstitch machine operator . Please contact study team before resolving/deleting from patients problem list. Study phone number: [phone]. Diagnosis changed due to Research Module. Go to Snapshot for study details. Encounter for examination fo r normal comparison and control in clinical research program 08/24/2018 05/09/2022 Overview: DO NOT DELETE - [facility] DETECT Study: Project # [id number], [place] Farmer: Jass Felix, MS, MPH. SUMMARY: Goal: Establish [...] contact study staff at ; after hours Lucerne Farmer via the [facility] hospital blindstitch machine operator . - Please contact study team before resolving/deleting from patients problem list. Study phone number: [phone]. Diagnosis changed due to Research Module. Go [...] Will tryadding crestor. Follows with rheumatology in [place] for history of RA. Last labs from 06/2023 showed sed rate of 22, normal CRP; TSH normal at 1.05; BMP and hepatic panel normal; CBC essentially normal also. Mammogram 05/2023 normal. Plan to repeat 1 year which is already scheduled. DEXA 10/2021 completed by Rheumatology showed osteopenia. 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 TSH results Recent Labs Units 06/09/23 [...] results for input(s): "PROCRRATIO" in the last 74724 hours. Assessment and Plan Herpes zoster with [...] Studies Cardiology [address] [place] [address] [address] [facility] [address] [place] [address] 11/26/2023 7:40 AM EDT Office Visit Family Practice [place] [address] [place] [address] Elizabeth Winters DO [address] [place] [address] 01/14/2024 10:00 AM EDT Office Visit Cardiology, [facility] [address] [place] [address] Shreyas Jackson PA-C [address] [place] [address] 04/20/2024 10:00 AM EDT Office Visit Family Practice [address], [place] [address] [place] [address] Sukh Robin PA-C [address] [place] [address] 07/08/2024 10:00 AM EDT Nurse Only Ancillary [address], [place] [address] [place] [address] [place], Nurse [facility] [address] [place] [address] Scheduled Orders Name Type Priority Associated Diagnoses [...] (HCC) documented in this encounter Care Teams Software Support Engineer Relationship Specialty Start Date End Date Elizabeth Winters DO [address] [facility] [place] [address] PCP - General Family Medicine 04/26/20 documented as of this encounter
--- OUTSIDE RECORDS SUMMARY | 2023-12-09 06:23 | External Medical Summary | Summary of Care ---
Author Name Unknown Organization [facility] Address [address] [place] [address] Phone [phone] Care Team Providers Care Tearer Name Role Phone Elizabeth Winters DO Primary Care Provider +1- [phone] Reason for Visit * Reason Onset Date Comments Encounter Created in Error 07/03/2023 Encounter Details Date Type Department Care Team (Late st Contact Info) Description 07/03/2023 Telephone Family Practice [facility] [address] [place] [address] Elizabeth Winters DO [address] [place] [address] Encounter created in error Allergies No known active allergiesdocumented as of [...] [facility] [place] DETECT Study: Project # [id number], Supervisor Cold Rolling: Cole Perez, PhD. SUMMARY: Goal: Establish test [...] study staff at ; after hours Supervisor Cold Rolling via the [facility] facing cutting machine operator . Please contact study team before resolving/deleting from patients problem list. Study phone number: [phone]. Diagnosis changed due to Research Module. Go to Snapshot for study details. Encounter for examination fo r normal comparison and control in clinical research program 08/24/2018 05/09/2022 Overview: DO NOT DELETE - [facility] [place] DETECT Study: Project # [id number], Supervisor Cold Rolling: Jass Felix, MS, MPH. SUMMARY: Goal: Establish [...] study staff at ; after hours Supervisor Cold Rolling via the [facility] [place] [facility] facing cutting machine operator . - Please contact study team before resolving/deleting from patients problem list. Study phone number: [phone]. Diagnosis changed due to Research Module. Go [...] Joyner RN - 07/03/2023 11:11 AM EDT This encounter was created in error. 07/03/2023, 11:11 AM, Ksenia Joyner RN documented in this encounter Plan of Treatment Upcoming Encounters Date Type Department Care Team (Late st Contact Info) Description 10/14/2023 10:00 AM EST Cardiac Studies [place]iology [place] [address] [facility] [address] [place] [address] [facility] [place] [address] 11/26/2023 7:40 AM EDT Office Visit Family Practice [place] Chantell De La [place] [address] [place] [place] [address] Elizabeth Winters DO [address] [place] [place] [address] Health Maintenance Due Date Last Done Comments [...] as of this encounter Visit Diagnoses Diagnosis Encounter Created In Error- Primary documented in this encounter Care Teams Tearer Relationship Specialty Start Date End Date Elizabeth Winters DO [address] [facility] [place] [address] PCP - General Family Medicine 04/26/20 documented as of this encounter
--- OUTSIDE RECORDS SUMMARY | 2023-12-09 06:23 | External Medical Summary | Summary of Care ---
Author Name Unknown Organization [facility] Address [address] [facility] [place] [address] Phone [phone] Care Team Providers Care Marine Diver Name Role Phone Elizabeth Winters DO Primary Care Provider +1- [phone] Reason for Visit * Reason Onset Date Comments Test Results Lab 06/27/2023 Encounter Details Date Type Department Care Team (Late st Contact Info) Description 06/27/2023 Telephone Family Practice [facility] [address] [place] [address] Elizabeth Winters DO [address] [place] [address] Test Results Lab Allergies No known active allergiesdocumented as of this encounter (statuses as of 07/02/2023) Medications Medication Sig Dispensed Refills Start Date [...] as of this encounter (statuses as of 07/02/2023) Active Problems Problem Noted Date Diagnosed Date [...] as of this encounter (statuses as of 07/02/2023) Resolved Problems Problem Noted Date Diagnosed Date Resolved Date Other hyperlipidemia 09/23/2019 020 Encounter for long-term (cur rent) use of medications 10/23/2018 09/23/2019 Encounter for examination fo r normal comparison and control in clinical research program 08/24/2018 04/10/2020 Overview: DO NOT DELETE [facility] DETECT Study: Project # [id number], Process Cheese Cooker: Cole Perez, PhD. SUMMARY: Goal: Establish test [...] contact study staff at ; after hours Process Cheese Cooker via the [facility] variety saw operator . Please contact study team before resolving/deleting from patients problem list. Study phone number: [phone]. Diagnosis changed due to Research Module. Go to Snapshot for study details. Encounter for examination fo r normal comparison and control in clinical research program 08/24/2018 05/09/2022 Overview: DO NOT DELETE - [facility] Study: Project # [id number], Process Cheese Cooker: Jass Felix, MS, MPH. SUMMARY: Goal: Establish [...] contact study staff at ; after hours Process Cheese Cooker via the [facility] variety saw operator . - Please contact study team before resolving/deleting from patients problem list. Study phone number: [phone]. Diagnosis changed due to Research Module. Go to Snapshot for study details. Mild protein-calorie malnutrition 08/21/2018 11/24/2020 Pure hypercholesterolemia 09/25/2017 Second degree AV block 09/25/201703/06 Overview: GERDA Keenan 08/19/17 Carpal tunnel syndrome 02/29/201603/06 Hypertension 03/06/2018 documented as of this encounter (statuses as of 07/02/2023) Immunizations No known immunizationsdocumented as of this [...] 07/03/2023 11:00 AM EDT Nurse Only Ancillary [place] Chantell De La [place] [address] [place] [address] [place] Nurse Annual Wellness [place] [address] [place] [address] 10/14/2023 10:00 AM EST Cardiac Studies Cardiology [place] [address] [place] [address] [facility] [address] [place] [address] 11/26/2023 7:40 AM EDT Office Visit Family Practice [address] [place] [address] Elizabeth Winters DO [address] [place] [address] Health Maintenance Due Date Last Done Comments COVID-19 Vaccine (#1) 1950 Pneumococcal Vaccine: 65+ Years (1 - PCV) 1951 DTaP,Tdap,and Td Vaccines (1 - Tdap) 1966 Zoster Vaccines (1 of 2) 1966 Depression Screening 04/26/2021 04/26/2020 Influenza Vaccine (FLU shot) (#1) 2023 GFR 06/09/2024 06/09/2023, 03/08, 06/26/2021, Additional history exists DXA Scan 02/04/2026 02/04/2019 Albumin/Creatinine Ratio 06/09/2026 06/09/2023, 010 03/2019 Colorectal Cancer Screening Discontinued Fecal Occult [...] filedocumented as of this encounter Care Teams Marine Diver Relationship Specialty Start Date End Date Elizabeth Winters DO [address] [place] [address] PCP - General Family Medicine 04/26/20 documented as of this encounter
--- OUTSIDE RECORDS SUMMARY | 2023-12-09 06:23 | External Medical Summary | Summary of Care ---
Author Name Unknown Organization [facility] Address [address] [facility] [place] [address] Phone [phone] Care Team Providers Care Pewter Finisher Name Role Phone Elizabeth Winters DO Primary Care Provider +1- [phone] Reason for Visit * Reason Onset Date Comments Test Results Lab 06/27/2023 Encounter Details Date Type Department Care Team Description 06/27/2023 Telephone Family Practice [place] Chantell De La Cruz [address] [place] [address] Elizabeth Winters DO [address] [place] [address] Test Results Lab Allergies No known active allergiesdocumented as of this encounter (statuses as of 06/27/2023) Medications Medication Sig Dispensed Refills Start Date [...] as of this encounter (statuses as of 06/27/2023) Active Problems Problem Noted Date Severe obesity [...] as of this encounter (statuses as of 06/27/2023) Resolved Problems Problem Noted Date Resolved Date Other hyperlipidemia 09/23/2019 09/23/2019 Encounter for long-term (current) use of medicat ions 10/23/2018 09/23/2019 Encounter for examination fo r normal comparison and control in clinical research program 08/24/2018 04/10/2020 Overview: DO NOT DELETE [facility] DETECT Study: Project # [id number], Quotation Checker: Cole Perez, PhD. SUMMARY: Goal: Establish test [...] contact study staff at ; after hours Quotation Checker via the [facility] flat bed operator . Please contact study team before resolving/deleting from patients problem list. Study phone number: [phone]. Diagnosis changed due to Research Module. Go to Snapshot for study details. Encounter for examination fo r normal comparison and control in clinical research program 08/24/2018 05/09/2022 Overview: DO NOT DELETE - [facility] Study: Project # [id number], Quotation Checker: Jass Felix, MS, MPH. SUMMARY: Goal: Establish [...] contact study staff at ; after hours Quotation Checker via the [facility] flat bed operator . - Please contact study team before resolving/deleting from patients problem list. Study phone number: [phone]. Diagnosis changed due to Research Module. Go to Snapshot for study details. Mild protein-calorie malnutrition 08/21/2018 11/24/2020 Pure hypercholesterolemia 09/25/20172017 Second degree AV block 09/25/2017 8 Overview: GERDA Keenan 08/19/17 Carpal tunnel syndrome 02/29/2016 8 Hypertension 03/06/2018 documented as of this encounter (statuses as of 06/27/2023) Immunizations No known immunizationsdocumented as of this [...] Specialty Care Team Description 07/03/2023 Nurse Only [facility], Nurse Annual Wellness Cold [address] [place] [address] 10/14/2023 Cardiac Studies Cardiology [place] [facility] [address] [facility] [place] [address] 11/26/2023 Office Visit Family Medicine Elizabeth Winters DO [address] [place] [address] Health Maintenance Due Date Last Done Comments [...] filedocumented as of this encounter Care Teams Pewter Finisher Relationship Specialty Start Date End Date Elizabeth Winters DO [address] [facility] [place] [address] PCP - General Family Medicine 04/26/20 documented as of this encounter
--- OUTSIDE RECORDS SUMMARY | 2023-12-09 06:23 | External Medical Summary | Summary of Care ---
Author Name Unknown Organization [facility] Address [address] [facility] [place] [address] Phone [phone] Care Team Providers Care Trainer Name Role Phone Elizabeth Winters DO Primary Care Provider +1- [phone] Reason for Visit * Reason Onset Date Comments Encounter Created in Error 07/28/2023 Encounter Details Date Type Department Care Team (Late st Contact Info) Description 07/28/2023 Telephone Family Practice [facility] [address] [place] [address] Elizabeth Winters DO [address] [place] [address] Encounter Created in Error Allergies No known active allergiesdocumented as of this encounter (statuses as of 07/28/2023) Medications Medication Sig Dispensed Refills Start Date [...] as of this encounter (statuses as of 07/28/2023) Active Problems Problem Noted Date Diagnosed Date [...] as of this encounter (statuses as of 07/28/2023) Resolved Problems Problem Noted Date Diagnosed Date Resolved Date Other hyperlipidemia 09/23/2019 020 Encounter for long-term (cur rent) use of medications 10/23/2018 09/23/2019 Encounter for examination fo r normal comparison and control in clinical research program 08/24/2018 04/10/2020 Overview: DO NOT DELETE [facility] DETECT Study: Project # [id number], Dry Talc Racker: Cole Perez, PhD. SUMMARY: Goal: Establish test [...] contact study staff at ; after hours Dry Talc Racker via the [facility] premix operator concentrate . Please contact study team before resolving/deleting from patients problem list. Study phone number: [phone]. Diagnosis changed due to Research Module. Go to Snapshot for study details. Encounter for examination fo r normal comparison and control in clinical research program 08/24/2018 05/09/2022 Overview: DO NOT DELETE - [facility] Study: Project # [id number], Dry Talc Racker: Jass Felix, MS, MPH. SUMMARY: Goal: Establish [...] contact study staff at ; after hours Dry Talc Racker via the [facility] premix operator concentrate . - Please contact study team before resolving/deleting from patients problem list. Study phone number: [phone]. Diagnosis changed due to Research Module. Go to Bvents for study details. Mild protein-calorie malnutrition 08/21/2018 11/24/2020 Pure hypercholesterolemia 09/25/2017 Second degree AV block 09/25/201703/06 Overview: GERDA Keenan 08/19/17 Carpal tunnel syndrome 02/29/201603/06 Hypertension 03/06/2018 documented as of this encounter (statuses as of 07/28/2023) Immunizations No known immunizationsdocumented as of this [...] encounter Miscellaneous Notes * Telephone Encounter - Jose Cruz Beauchamp OSA - 07/28/2023 4:09 PM EST error documented in this encounter Plan of Treatment Upcoming Encounters Date Type Department Care Team (Late st Contact Info) Description 10/14/2023 10:00 AM EST Cardiac Studies Cardiology [place] Ra[place]l Valdez [address] [place] [address] [facility] [address] [place] [address] 11/26/2023 7:40 AM EDT Office Visit Family Practice [address] [place] [address] Elizabeth Winters DO [address] [place] [address] 01/14/2024 10:00 AM EDT Office Visit Cardiology, [facility] [address] [place] [address] Shreyas Jackson PA-C [address] [place] [address] 07/08/2024 10:00 AM EDT Nurse Only Ancillary [place], [place] [address] [place] [address] [place] [address] [place], Nurse Annual Wellness Cold [address] [place] [address] Health Maintenance Due Date Last Done Comments [...] filedocumented as of this encounter Care Teams Trainer Relationship Specialty Start Date End Date Elizabeth Winters DO [address] [place] [address] PCP - General Family Medicine 04/26/20 documented as of this encounter
--- OUTSIDE RECORDS SUMMARY | 2023-12-09 06:23 | External Medical Summary | Summary of Care ---
Author Name Unknown Organization [facility] Address [address] [facility] [place] [address] Phone [phone] Care Team Providers Care Hand Stoner Name Role Phone Filiberto Winters DO Primary Care Provider +1- [phone] Reason for Visit * Reason Onset Date Comments Test Results Lab 06/27/2023 Encounter Details Date Type Department Care Team (Late st Contact Info) Description 06/27/2023 Telephone Family Practice [facility] [address] [place] [address] Filiberto Winters DO [address] [place] [address] Test Results Lab Allergies No [...] 04/10/2020 Overview: DO NOT DELETE [facility] DETECT Study: Project # [id number], Range Master: Cole Perez, PhD. SUMMARY: Goal: Establish test [...] contact study staff at ; after hours Range Master via the [place] seamer operator . Please contact study team before resolving/deleting from patients problem list. Study phone number: [phone]. Diagnosis changed due to Research Module. Go to Snapshot for study details. Encounter for examination fo r normal comparison and control in clinical research program 08/24/2018 05/09/2022 Overview: DO NOT DELETE - [facility] Study: Project # [id number], Range Master: Jass Felix, MS, MPH. SUMMARY: Goal: Establish [...] contact study staff at ; after hours Range Master via the [place] seamer operator . - Please contact study team before resolving/deleting from patients problem list. Study phone number: [phone]. Diagnosis changed due to Research Module. Go [...] Miscellaneous Notes * Addendum Note - Filiberto Winters DO - 07/03/2023 12:01 PM EDTAddended by: FILIBERTO WINTERS on: 07/03/2023 12:01 PM Modules accepted: Orders * Telephone Encounter - Ksenia Joyner RN - 07/03/2023 11:11 AM EDT Pt is agreeable to starting medication. She uses [facility] pharmacy * Telephone Encounter - Tori Montes De Oca LPN - 07/02/2023 1:38 PM EDT Left message for pt to return call for update * Telephone Encounter - Filiberto Winters DO - 06/27/2023 3:40 PM EDT [...] EST Cardiac Studies Cardiology [facility] [place] [address] [place] [address] [facility] [address] [place] [address] 11/26/2023 7:40 AM EDT Office Visit Family Practice [place] Chantell De La Cruz [address] [place] [address] Filiberto Winters DO [address] [place] [address] 07/08/2024 10:00 AM EDT Nurse Only Ancillary [place] Chantell De La Cruz [address] [place] [address] [place], Nurse Annual Wellness Cold [address] [place] [address] Health Maintenance Due Date Last Done Comments COVID-19 Vaccine (#1) 1950 Pneumococcal Vaccine: 65+ Years (1 - PCV) 1951 DTaP,Tdap,and Td Vaccines (1 - Tdap) 1966 Zoster Vaccines (1 of 2) 1966 DXA Scan 02/04/2021 02/04/2019 Influenza Vaccine (FLU shot) (#1) 2023 GFR 06/09/2024 06/09/2023, 03/08, 06/26/2021, Additional history exists Depression Screening 07/03/2024 07/03/2023 Albumin/Creatinine Ratio 06/09/2026 06/09/2023, 0 03/2019 Colorectal Cancer Screening Discontinued Fecal Occult [...] encounter Visit Diagnoses Diagnosis Other hyperlipidemia- Primary documented in this encounter Care Teams Hand Stoner Relationship Specialty Start Date End Date Filiberto Winters DO [address] [facility] [address] PCP - General Family Medicine 04/26/20 documented as of this encounter
--- OUTSIDE RECORDS SUMMARY | 2023-12-09 06:24 | External Medical Summary | Summary of Care ---
Author Name Unknown Organization [facility] Address [address] [facility] [place] [address] Phone [phone] Care Team Providers Care Fruit Picker Machine Operator Name Role Phone Elizabeth Winters DO Primary Care Provider +1- [phone] Reason for Visit * Reason Onset Date Comments Medication Refill 06/20/2023 Encounter Details Date Type Department Care Team Description 06/20/2023 Refill [facility] [address] [place] [address] Elizabeth Winters DO [address] [place] [address] Essential hypertension Allergies No known active allergiesdocumented as of this encounter (statuses as of 06/20/2023) Medications Medication Sig Dispensed Refills Start Date [...] the morning. 45 Tablet 3 06/20/2023 Active Valsartan 320 MG Oral Tablet (Diovan)Indications :Essential hypertension Take 1 Tablet by mouth in the morning. 90 Tablet 1 12/31/2022 06/20/2023 Discontinued (Refill) hydroCHLOROthiazide 12.5 MG Oral Tablet (Hydrodiuril)Indica tions:Essential hypertension TAKE ONE-HALF TABLET BY MOUTH EVERY DAY 45 Tablet 1 01/07/2023 06/20/2023 Discontinued (Refill) documented as of this encounter (statuses as of 06/20/2023) Active Problems Problem Noted Date Severe obesity [...] as of this encounter (statuses as of 06/20/2023) Resolved Problems Problem Noted Date Resolved Date Other hyperlipidemia 09/23/2019 09/23/2019 Encounter for long-term (current) use of medicat ions 10/23/2018 09/23/2019 Encounter for examination fo r normal comparison and control in clinical research program 08/24/2018 04/10/2020 Overview: DO NOT DELETE [facility] DETECT Study: Project # [id number], Walnut Dehydrator Operator: Cole Perez, PhD. SUMMARY: Goal: Establish [...] contact study staff at ; after hours Walnut Dehydrator Operator via the [facility] band saw operator cake cutting . Please contact study team before resolving/deleting from patients problem list. Study phone number: [phone]. Diagnosis changed due to Research Module. Go to Snapshot for study details. Encounter for examination fo r normal comparison and control in clinical research program 08/24/2018 05/09/2022 Overview: DO NOT DELETE - [facility] Study: Project # [id number], Walnut Dehydrator Operator: Jass Felix, MS, MPH. SUMMARY: Goal: [...] contact study staff at ; after hours Walnut Dehydrator Operator via the [facility] band saw operator cake cutting . - Please contact study team before resolving/deleting from patients problem list. Study phone number: [phone]. Diagnosis changed due to Research Module. Go to Snapshot for study details. Mild protein-calorie malnutrition 08/21/2018 11/24/2020 Pure hypercholesterolemia 09/25/20172017 Second degree AV block 09/25/2017 8 Overview: GERDA Keenan 08/19/17 Carpal tunnel syndrome 02/29/2016 8 Hypertension 03/06/2018 documented as of this encounter (statuses as of 06/20/2023) Immunizations No known immunizationsdocumented as of this [...] Telephone Encounter - Elizabeth Winters DO - 06/20/2023 4:04 PM EDTSigned Prescriptions: Disp Refills Valsartan 320 MG Oral Tablet (Diovan) 90 Tab*1 Sig: Take 1 Tablet by mouth in the morning. Authorizing Provider: ELIZABETH WINTERS hydroCHLOROthiazide 12.5 MG Oral Tablet (H*45 Tab*3 Sig: Take 0.5 Tablets by mouth in the morning. Authorizing Provider: ELIZABETH WINTERS ------- * Telephone Encounter - Karol Singh LPN - 06/20/2023 3:59 PM EDTPending Prescriptions: Disp Refills Valsartan 320 MG Oral Tablet (Diovan) 90 Tab*1 Sig: Take 1 Tablet by mouth in the morning. hydroCHLOROthiazide 12.5 MG Oral Tablet (H*45 Tab*1 Sig: Take 0.5 Tablets by mouth in the morning. * Telephone Encounter - Karol Singh LPN - 06/20/2023 3:58 PM EDT Pending Prescriptions: Disp Refills Valsartan 320 MG Oral Tablet (Diovan) 90 Tab*1 Sig: Take 1 Tablet by mouth in the morning. hydroCHLOROthiazide 12.5 MG Oral Tablet (*45 Tab*1 Sig: Take 0.5 Tablets by mouth in the morning. 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 Labs: Lab Results Component Value Date/Time CREATININE - [facility] 0.7 2022 11:28 AM CREATININE - [facility] 0.7 04/26/2020 09:37 AM CREATININE, RANDOM URINE - [facility] 103 09/14/2018 08:19 AM CREATININE-OUTSIDE LAB 0.6 (A) 04/05/2021 12:00 AM Lab Results Component Value Date/Time POTASSIUM - [facility] 4.5 2022 11:28 AM POTASSIUM - [facility] 4.2 04/26/2020 09:37 AM POTASSIUM-OUTSIDE LAB 4.2 02/04/2019 12:00 AM Lab Results Component Value Date/Time TSH - OUTSIDE LAB 0.939 02/04/2019 12:00 AM Lab Results Component Value Date/Time LDL CHOLESTEROL (CALCULATED) - [facility] 136 (H) [...] Hemoglobin AIC Results: No results found for: HEMOGLOBIN A1C * Telephone Encounter - DAVID Gonzalez - 06/20/2023 2:09 PM EDT Pending Prescriptions: Disp Refills Valsartan 320 MG Oral Tablet (Diovan) 90 Tab*1 Sig: Take 1 Tablet by mouth in the morning. hydroCHLOROthiazide 12.5 MG Oral Tablet (*45 Tab*1 Sig: Take 0.5 Tablets by mouth in the morning. documented in this encounter Plan of Treatment Upcoming Encounters Date Type Specialty Care Team Description 07/03/2023 Nurse Only Nurse [place] Annual Wellness Cold [address] [place] [address] 10/14/2023 Cardiac Studies Cardiology [facility] [address] [facility] [place] [address] 11/26/2023 Office Visit Family Medicine Elizabeth Winters DO [address] [place] [address] Health Maintenance Due Date Last Done Comments COVID-19 Vaccine (#1) 1950 Pneumococcal Vaccine: 65+ Years (1 - PCV) 1951 DTaP,Tdap,and Td Vaccines (1 - Tdap) 1966 Zoster Vaccines (1 of 2) 1966 Depression Screening 04/26/2021 04/26/2020 Albumin/Creatinine Ratio 09/14/2021 09/14/2018 GFR 2023 2022, 06/08, 04/05/2021, Additional history exists Influenza Vaccine (FLU shot) (#1) 2023 DXA Scan 02/04/2026 02/04/2019 Colorectal Cancer Screening Discontinued Fecal Occult Blood [...] as of this encounter Visit Diagnoses Diagnosis Essential hypertension Unspecified essential hypertension documented in this encounter Care Teams Fruit Picker Machine Operator Relationship Specialty Start Date End Date Elizabeth Winters DO [address] [facility] [place] [address] PCP - General Family Medicine 04/26/20 documented as of this encounter
--- OUTSIDE RECORDS SUMMARY | 2023-12-09 06:24 | External Medical Summary | Summary of Care ---
Author Name Unknown Organization [facility] Address [address] [facility] [place] [address] Phone [phone] Care Team Providers Care Remote Control Mirror Installer Name Role Phone Elizabeth Winters DO Primary Care Provider +1- [phone] Reason for Visit * Reason Onset Date Comments FYI 06/19/2023 Encounter Details Date Type Department Care Team Description 06/19/[address] [facility] [address] [place] [address] [facility] [address] [facility] [address] FYI Allergies No known active allergiesdocumented as of this encounter (statuses as of 06/19/2023) Medications Medication Sig Dispensed Refills Start Date [...] 07/10/2022 Active Valsartan 320 MG Oral Tablet (Diovan)Indications:Es sential hypertension Take 1 Tablet by mouth in the morning. 90 Tablet 1 12/31/2022 Active hydroCHLOROthiazide 12.5 MG Oral Tablet (Hydrodiuril)Indicatio ns:Essential hypertension TAKE ONE-HALF TABLET BY MOUTH EVERY DAY 45 Tablet 1 01/07/2023 Active Vitamin E 400 UNIT Oral Capsule (Aquasol E) Take 1 Capsule by mouth in the morning. 0 Active documented as of this encounter (statuses as of 06/19/2023) Active Problems Problem Noted Date Severe obesity [...] as of this encounter (statuses as of 06/19/2023) Resolved Problems Problem Noted Date Resolved Date Other hyperlipidemia 09/23/2019 09/23/2019 Encounter for long-term (current) use of medicat ions 10/23/2018 09/23/2019 Encounter for examination fo r normal comparison and control in clinical research program 08/24/2018 04/10/2020 Overview: DO NOT DELETE [facility] DETECT Study: Project # [id number], City Recorder: Cole Perez, PhD. SUMMARY: Goal: Establish test [...] contact study staff at ; after hours City Recorder via the [facility] ad terminal makeup operator . Please contact study team before resolving/deleting from patients problem list. Study phone number: [phone]. Diagnosis changed due to Research Module. Go to Snapshot for study details. Encounter for examination fo r normal comparison and control in clinical research program 08/24/2018 05/09/2022 Overview: DO NOT DELETE - [facility] DETECT Study: Project # [id number], City Recorder: Jass Felix, MS, MPH. SUMMARY: Goal: Establish [...] contact study staff at ; after hours City Recorder via the [facility] ad terminal makeup operator . - Please contact study team before resolving/deleting from patients problem list. Study phone number: [phone]. Diagnosis changed due to Research Module. Go to Snapshot for study details. Mild protein-calorie malnutrition 08/21/2018 11/24/2020 Pure hypercholesterolemia 09/25/20172017 Second degree AV block 09/25/2017 8 Overview: GERDA Keenan 08/19/17 Carpal tunnel syndrome 02/29/2016 8 Hypertension 03/06/2018 documented as of this encounter (statuses as of 06/19/2023) Immunizations No known immunizationsdocumented as of this [...] encounter Miscellaneous Notes * Telephone Encounter - DAVID Neumann - 06/19/2023 4:11 PM EDT Requested labs * Telephone Encounter - DAVID Medina - 06/19/2023 2:01 PM EDT Pt calling checking to see if lab results were received from the [facility] in [place]. Pt was given the office fax number. Pt was going to call the [facility] so results can be sent to Dr Winters. documented in this encounter Plan of Treatment Upcoming Encounters Date Type Specialty Care Team Description 07/03/2023 Nurse Only [facility] Nurse Jorge [facility] [address] [place] [address] 10/14/2023 Cardiac Studies [facility]iology [facility] [address] [place] [address] [place] [address] 11/26/2023 Office Visit Family Medicine Elizabeth Winters DO [address] [place] [address] Health Maintenance Due Date Last Done Comments [...] filedocumented as of this encounter Care Teams Remote Control Mirror Installer Relationship Specialty Start Date End Date Elizabeth Winters DO [address] [facility] [place] [address] PCP - General Family Medicine 04/26/20 documented as of this encounter
--- OUTSIDE RECORDS SUMMARY | 2023-12-09 06:24 | External Medical Summary | Summary of Care ---
Author Name Unknown Organization [facility] Address [address] [facility] [place] [address] Phone [phone] Care Team Providers Care Playground Official Name Role Phone Elizabeth Winters Primary Care Provider +1- [phone] Encounter Details Date Type Department Care Team Description 06/09/2023 Result Scan Unspecified Department <No scans attached> Allergies No known active [...] [facility] DETECT Study: Project # [id number], Ultrasonic Tester: Cole Perez, PhD. SUMMARY: Goal: Establish test [...] contact study staff at ; after hours Ultrasonic Tester via the [facility] [place] [facility] four corner stayer machine operator . Please contact study team before resolving/deleting from patients problem list. Study phone number: [phone]. Diagnosis changed due to Research Module. Go to Snapshot for study details. Encounter for examination fo r normal comparison and control in clinical research program 08/24/2018 05/09/2022 Overview: DO NOT DELETE [facility] DETECT Study: Project # [id number], Ultrasonic Tester: Jass Felix, MS, MPH. SUMMARY: Goal: Establish [...] contact study staff at ; after hours Ultrasonic Tester via the [facility] [place] [facility] four corner stayer machine operator . - Please contact study team before resolving/deleting from patients problem list. Study phone number: [phone]. Diagnosis changed due to Research Module. Go [...] Nurse Only Nurse Ash Annual [facility] Cold [address] [place] [address] 10/14/2023 Cardiac Studies Cardiology [facility] [address] [facility] [place] [id number] 11/26/2023 Office Visit Family Medicine Elizabeth Winters, DO [address] [facility] [place] [address] Health Maintenance Due Date Last Done Comments COVID-19 Vaccine (#1) 1950 Pneumococcal Vaccine: 65+ Years (1 - PCV) 1951 DTaP,Tdap,and Td Vaccines (1 - Tdap) 1966 Zoster Vaccines (1 of 2) 1966 Depression Screening 04/26/2021 04/26/2020 Albumin/Creatinine Ratio 09/14/2021 06/09/2023, 03/2019 GFR 2023 06/09/2023, 03/08, 06/26/2021, Additional history exists Influenza Vaccine (FLU shot) [...] Procedure Name Priority Date/Time Associated Diagnosis Comments OUTSIDE LAB RESULTS 06/09/2023 OUTSIDE LAB RESULTS 06/09/2023 OUTSIDE LAB RESULTS 06/09/2023 documented in this encounter Results * OUTSIDE LAB RESULTS (06/09/2023) 06/09/2023 No Physician Data Unknown LABORATORY * OUTSIDE LAB RESULTS (06/09/2023) 06/09/2023 No Physician Data Unknown LABORATORY * OUTSIDE LAB RESULTS (06/09/2023) 06/09/2023 No Physician Data Unknown LABORATORY documented in this encounter Care Teams Playground Official Relationship Specialty Start Date End Date Elizabeth Winters DO [address] [facility] [place] [id number] PCP - General Family Medicine 04/26/20 documented as of this encounter
--- OUTSIDE RECORDS SUMMARY | 2023-12-09 06:24 | External Medical Summary | Summary of Care ---
Author Name Unknown Organization [facility] Address [address] [facility] [place] [address] Phone [phone] Care Team Providers Care Bullet Assembly Press Setter Operator Name Role Phone Elizabeth Winters DO Primary Care Provider +1- [phone] Encounter Details Date Type Department Care Team Description 06/27/2023 Orders Only Family Practice [place] [facility] De La Cruz [address] [facility] [place] [address] [facility] [address] [facility] [address] Allergies No known active allergiesdocumented as of [...] DELETE [facility] DETECT Study: Project # [id number], [employer]: Cole Perez, PhD. SUMMARY: Goal: Establish test [...] contact study staff at ; after hours [employer] via the [facility] flow machine operator . Please contact study team before resolving/deleting from patients problem list. Study phone number: [phone]. Diagnosis changed due to Research Module. Go to Snapshot for study details. Encounter for examination fo r normal comparison and control in clinical research program 08/24/2018 05/09/2022 Overview: DO NOT DELETE - [facility] Study: Project # [id number], [employer]: Jass Felix, MS, MPH. SUMMARY: Goal: Establish [...] contact study staff at ; after hours [employer] via the [facility] flow machine operator . - Please contact study team before resolving/deleting from patients problem list. Study phone number: [phone]. Diagnosis changed due to Research Module. Go [...] Specialty Care Team Description 07/03/2023 Nurse Only [facility], Nurse Annual Wellness Cold [address] [facility] [place] [address] 10/14/2023 Cardiac Studies Cardiology [facility] [address] [facility] [place] [address] 11/26/2023 Office Visit Family Medicine Elizabeth Winters, DO [address] [facility] [place] [address] Health Maintenance Due Date Last Done Comments [...] Procedure Name Priority Date/Time Associated Diagnosis Comments CHEMISTRY-OUTSIDE Routine 06/09/2023 TSH Routine 06/09/2023 documented in this encounter Results * TSH (06/09/2023) TSH - OUTSIDE LAB 1.050 0.465 - 4.680 UIU/ML OUTSIDE LAB (SEE SCANNED REPORT) Blood Venous blood specimen / Unknown 06/09/2023 History Per Patient LAB BLOOD ORDERABLES OUTSIDE LAB (SEE SCANNED REPORT) * (ABNORMAL) CHEMISTRY-OUTSIDE (06/09/2023) Not all results display below - see scan for full detail OUTSIDE LAB (SEE SCANNED REPORT) Comment:ALT LAB-ALBUMIN/CREA T RATIO URINE,LIPIC,CMP,CBC CREATININE-OUTSID E LAB 0.60 0.52 - 1.04 MG/DL OUTSIDE LAB (SEE SCANNED REPORT) EGFR-OUTSIDE LAB 97.2 60 ML/MIN OUT SIDE LAB (SEE SCANNED REPORT) POTASSIUM-OUTSIDE LAB 4.3 3.5 - 5.1 MMOL OUTSIDE LAB (SEE SCANNED REPORT) GLUCOSE-OUTSIDE LAB 96 74 - 100 MG/DL OUTSIDE LAB (SEE SCANNED REPORT) HOURS FASTING OUTSID E LAB (SEE SCANNED REPORT) TRIGLYCERIDES-OUT SIDE LAB 168(A) 150 MG/DL OUTSIDE LAB (SEE SCANNED REPORT) CHOLESTEROL-OUTSI DE LAB 234(A) 200 MG/DL OUTSIDE LAB (SEE SCANNED REPORT) HDL-OUTSIDE LAB 50.0 40 - 65 MG/DL OUTSIDE LAB (SEE SCANNED REPORT) CHOL/HDL RATIO-OUTSIDE LAB 4.7 5.1 RATIO OUTSIDE LA B (SEE SCANNED REPORT) LDL (CALCULATED)-OUTS OMER LAB 151.0(A) 130 CALC OUTSIDE LAB (SEE SCANNED REPORT) LDL (DIRECT MEASURE)-OUTSIDE LAB OUTSIDE LAB (SEE SCANNED REPORT) HEMOGLOBIN, [id number] LAB OUTSIDE LAB (SEE SCANNED REPORT) PHOSPHORUS-OUTSID E LAB OUTSIDE LAB (SEE SCANNED REPORT) PTH-OUTSIDE LAB OUTS OMER LAB (SEE SCANNED REPORT) MICROALBUMIN RATIO-OUTSIDE LAB <7 29 MG/G OUTSIDE LA B (SEE SCANNED REPORT) PROTEIN, UA-OUTSIDE LAB OUTSIDE LAB (SEE SCANNED REPORT) HEMOGLOBIN-OUTSID E LAB 13.5 11.1 - 15.9 G/DL OUTSIDE LAB (SEE SCANNED REPORT) 06/09/2023 Andrew Espino MD LABORATORY OUTSIDE LAB (SEE SCANNED REPORT) documented in this encounter Care Teams Bullet Assembly Press Setter Operator Relationship Specialty Start Date End Date Elizabeth Winters DO [address] [facility] [place] [address] PCP - General Family Medicine 04/26/20 documented as of this encounter
--- NOTE | 2023-12-09 07:01 | Hospitalist Progress Note ---
Date of Service December 09, 2023 Assessment & Plan (1) Stroke-like symptoms: Plan: Ms. Rendon is a 78-year-old female with past med history significant for hyperlipidemia, vasculitis, hypertension, history of second-degree heart block s/p pacemaker, aortic valve disorder, obesity, carpal tunnel syndrome, rheumatoid arthritis involving multiple sites with positive rheumatoid factor, comes because of lightheadedness and ambulatory dysfunction since last Friday. She used to ambulate without support prior to the episode. Now she feels little imbalance and is requiring assistance. She went to [facility] on last Friday. She was given meclizine but did not help much. There was a plan for MRI scan; however, she left AMA and presented to ED on 12/07. Patient with no focal deficits, but mostly symptoms occur with sitting up and standing. Not vertiginous and not with laying still. 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 Denies vision changes or other symptoms States her symptoms aren't "room spinning" but imbalance and unsteadiness Physical Exam Constitutional: WD/WN, vitals as above Respiratory: normal respiratory effort, lungs clear to auscultation Cardiovascular: RRR, no murmur, no edema Neurologic: PERRL, EOMI, accommodation nl, no face palsy, no dysarthria Results & Data Results & Data Vital Signs (Past 12 Hours) Vital Signs Pulse Pulse Resp BP BP Pulse Ox Pulse Ox 12/09/23 03:01 67 18 120/57 L 95 12/09/23 01:00 67 17 132/80 98 12/09/23 01:00 66 17 132/80 98 12/09/23 00:10 64 12/09/23 00:00 63 20 141/68 H 96 12/08/23 23:00 65 20 151/76 H 95 12/08/23 23:00 66 20 151/76 H 98 12/08/23 22:51 96 12/08/23 22:00 67 18 152/80 H 96 12/08/23 20:12 75 12/08/23 20:10 68 18 98 12/08/23 20:10 74 17 160/75 H 98 O2 Del Method O2 Del Method O2 Flow Rate 12/09/23 03:01 Nasal Cannula 2 12/09/23 01:00 Room Air 12/09/23 01:00 Room Air 12/09/23 00:10 12/09/23 00:00 Room Air 12/08/23 23:00 Room Air 12/08/23 23:00 Room Air 12/08/23 22:51 Room Air 12/08/23 22:00 Room Air 12/08/23 20:12 12/08/23 20:10 Room Air 12/08/23 20:10 Room Air Laboratory Results Short CBC 12/08/23 12/09/23 Range/Units 17:00 04:12 WBC 9.17 7.13 (4.8-10.8) K/ul Hgb 14.7 12.3 (12.0-16.0) g/dl Hct 42.9 36.0 L (37.0-47.0) % Plt Count 277 212 (130-400) K/uL BMP 12/08/23 12/09/23 17:00 04:12 Sodium 143 143 Potassium 3.7 3.2 L Chloride 104 109 H Carbon Dioxide 29 27 BUN 13 11 Creatinine 0.63 0.57 L Glucose 104 H 95 Calcium 9.7 8.4 L Liver Function 12/08/23 Range/Units 17:00 Total Bilirubin 0.7 (0.2-1.0) mg/dl AST 20 (13-39) U/L ALT 31 (7-52) U/L Alkaline Phosphatase 74 (34-104) U/L Albumin 4.3 (3.4-5.0) gm/dl Urine 12/08/23 Range/Units 20:14 Urine Color Yellow Urine Appearance Clear (Clear) Urine pH 5.5 (4.5-7.5) Ur Specific [place] > 1.045 H (1.000-1.030) Urine Protein Negative (Negative) Urine Glucose (UA) Negative (Negative) Medications Administered Home Medications Medication Instructions Recorded Confirmed Last Taken calcium 1,000 mg PO DAILY 12/08/23 12/08/23 Unknown cholecalciferol (vitamin D3) 50 50 mcg PO DAILY 12/08/23 12/08/23 Unknown mcg (2,000 unit) tablet (Vitamin D3) ezetimibe 10 mg tablet (Zetia) 10 mg PO DAILY 12/08/23 12/08/23 Unknown ferrous sulfate 325 mg (65 mg 325 mg PO TID 12/08/23 12/08/23 Unknown iron) tablet (Iron (ferrous sulfate)) hydrochlorothiazide 12.5 mg tablet 6.25 mg PO DAILY 12/08/23 12/08/23 Unknown metoprolol succinate 25 mg 25 mg PO DAILY 12/08/23 12/08/23 Unknown tablet,extended release 24 hr rosuvastatin 10 mg tablet 10 mg PO DAILY 12/08/23 12/08/23 Unknown upadacitinib 15 mg tablet,extended 15 mg PO DAILY 12/08/23 12/08/23 Unknown release 24 hr (Rinvoq) valsartan 320 mg tablet 320 mg PO DAILY 12/08/23 12/08/23 Unknown Active Medications Generic Name Dose Route Start Last Admin Trade Name Freq PRN Reason Stop Dose Admin Ezetimibe 10 mg 12/09/23 09:00 12/09/23 09:21 Ezetimibe 10 Mg Tab PO 01/08/24 08:59 10 mg DAILY JEY Administration Ferrous Sulfate 325 mg 12/09/23 08:00 12/09/23 09:20 Ferrous Sulfate 325 Mg Tab PO 01/08/24 07:59 325 mg TIDM JEY Administration Hydrochlorothiazide 6.25 mg 12/09/23 09:00 12/09/23 09:22 Hydrochlorothiazide 25 Mg Tab PO 01/08/24 08:59 6.25 mg DAILY JEY Administration Sodium Chloride 1,000 mls @ 75 mls/hr 12/08/23 22:51 12/08/23 23:45 Nss IV 12/09/23 12:10 75 mls/hr .[id number] JEY Administration Metoprolol Succinate 25 mg 12/09/23 09:00 12/09/23 09:21 Metoprolol Succ 25mg Ext Rel Tab PO 01/08/24 08:59 25 mg DAILY JEY Administration Rosuvastatin Calcium 10 mg 12/09/23 09:00 12/09/23 09:22 Rosuvastatin Calcium 10 Mg Tab PO 01/08/24 08:59 10 mg DAILY JEY Administration Valsartan 320 mg 12/09/23 09:00 12/09/23 09:22 Valsartan 80 Mg Tab PO 01/08/24 08:59 320 mg DAILY JEY Administration Vitamin D 50 mcg 12/09/23 09:00 12/09/23 09:21 Cholecalciferol 25 Mcg (1000 Units) Tab PO 01/08/24 08:59 50 mcg DAILY JEY Administration
[2023-12-09 07:07] LABS: Estimated Average Glucose 108 mg/dl; Hemoglobin A1C 5.4 % (4.5-5.6)
[2023-12-09] MEDS: FERROUS SULFATE 325 MG TAB PO SCH (09:20)
[2023-12-09] MEDS: METOPROLOL SUCC 25MG EXT REL TAB PO SCH (09:21)
[2023-12-09] MEDS: EZETIMIBE 10 MG TAB PO SCH (09:21)
[2023-12-09] MEDS: CHOLECALCIFEROL 25 MCG (1000 UNITS) TAB PO SCH (09:21)
[2023-12-09] MEDS: VALSARTAN 80 MG TAB PO SCH (09:22)
[2023-12-09] MEDS: ROSUVASTATIN CALCIUM 10 MG TAB PO SCH (09:22)
[2023-12-09] MEDS: hydroCHLOROthiazide 25 MG TAB PO SCH (09:22)
[2023-12-09] MEDS: POTASSIUM CHLORIDE CRTAB 20 MEQ TABCR PO STA (11:54)
[2023-12-09 14:26] LABS: Folate (Folic Acid),Ser orPlas 18.1 ng/ml (>5.38)
--- NOTE | 2023-12-09 18:10 | Neurology Consultation ---
Date of Consultation December 09, 2023 Assessment & Plan (1) Lightheadedness: Plan 78 y/o female with history of HTN, HLD, RA, and second degree heart block s/p pacemaker that presented with three to four day history of lightheadedness, which appears to be significantly positional. Given exam and clinical history, low suspicion for vascular event but would proceed with imaging. 1. Orthostatic vitals 2. MRI brain w/wo pending 3. Neurochecks q4 4. Aspirin 81 mg for now 5. On rosuvastatin 10 mg and zetia [address]/PT/OT 7. Outpatient neurology follow-up Telehealth Consultation Telehealth Information Telehealth Information: I performed this visit using a real-time telehealth connection between my location and the patients location ([facility]). After connecting through interactive tele-video, patient was identified by name and date of and/or wristband check.Patient (or authorized healthcare passenger relations representative) was informed that this was a telemedicine visit and it was being conducted confidentially over secure lines. My office door was closed and no one else was present in the room with me.Patient (or authorized healthcare passenger relations representative) provided consent to proceed with the visit, expressed an understanding of privacy and security of the telemedicine visit, and gave permission to have a hospital passenger relations representative in the room in order to assist with the visit and to conduct portions of the visit, as needed. I informed the patient (or authorized healthcare passenger relations representative) that I reviewed their record and presented the opportunity for them to ask any questions regarding the visit today. The patient agreed to participate. History of Present Illness Reason for Consultation: stroke like symptoms Requesting Physician: Ravinder Espinosa MD Attending Physician: Kenisha Garcia MD History of Present Illness 78 y/o female that presented with lightheadedness on yesterday. She states that she presented to an outside hospital three days ago. She states that four days ago, she started on to experienced some light headedness. Then on the following day, she noticed that it was worsening as she did activities around the room. By the evening, because it persisted, she decided to go to the hospital and she was admitted at the outside hospital. She states that she decided to leave the hospital AMA as they had not completed an MRI due to her pacemaker. She states that her lightheadedness is better today compared to when it initially began. She states that if she stands up, she does still get lightheaded. However, she does not have these symptoms when sitting. She knows that she was standing up when she noticed the worse of her symptoms at home but she is unclear if this was always positional. She denies weakness, numbness/tingling, change in speech, dizziness, room spinning sensation, or vision changes. She denies any prior similar episodes before the last few days. Allergies Allergy/AdvReac Type Severity Reaction Status Date / Time No Known Allergies Allergy Verified 12/08/23 16:48 Home Medications Medication Instructions Recorded Confirmed Type calcium 1,000 mg PO DAILY 12/08/23 12/08/23 History cholecalciferol (vitamin D3) 50 50 mcg PO DAILY 12/08/23 12/08/23 History mcg (2,000 unit) tablet (Vitamin D3) ezetimibe 10 mg tablet (Zetia) 10 mg PO DAILY 12/08/23 12/08/23 History ferrous sulfate 325 mg (65 mg 325 mg PO TID 12/08/23 12/08/23 History iron) tablet (Iron (ferrous sulfate)) hydrochlorothiazide 12.5 mg tablet 6.25 mg PO DAILY 12/08/23 12/08/23 History metoprolol succinate 25 mg 25 mg PO DAILY 12/08/23 12/08/23 History tablet,extended release 24 hr rosuvastatin 10 mg tablet 10 mg PO DAILY 12/08/23 12/08/23 History upadacitinib 15 mg tablet,extended 15 mg PO DAILY 12/08/23 12/08/23 History release 24 hr (Rinvoq) valsartan 320 mg tablet 320 mg PO DAILY 12/08/23 12/08/23 History Patient History Social History Smoking Status: Never smoker Hx Alcohol Use: No Hx Substance Use: No Preferred Language: Irish Communication Ability: Effective [employer] Sales Representative Required: No Beliefs That Will Affect Care: None Current Living Situation: Spouse Other Information That Helps Us Care for You: No Feels Safe at Home: Yes Safety Concerns: Feels Safe At This Time Assistive Devices: Glasses Review of Systems Negative except as listed in HPI Physical Exam AAO X 4 No aphasia or dysarthria VFF grossly intact EOMI, no definite nystagmus Facial sensations intact No facial asymmetry Tongue protrudes midline Motor: Moves all four extremities antigravity, no drift Sensation:Intact to light touch throughout No extinction. Cerebellar: FTN and HTS intact NIHS 0 Results & Data Vital Signs (Past 12 Hours) Vital Signs Temp Pulse Pulse Resp BP BP Pulse Ox 12/09/23 16:19 36.8 C 67 18 155/80 H 97 12/09/23 14:48 36.6 C 77 19 138/73 92 12/09/23 13:30 73 18 12/09/23 13:20 71 30 H 12/09/23 13:10 75 25 H 12/09/23 13:00 77 19 12/09/23 12:50 67 26 H 82 L 12/09/23 12:40 60 21 94 12/09/23 12:32 61 22 95 12/09/23 12:10 98 12/09/23 12:00 93 12/09/23 11:50 103 H 27 H 89 L 12/09/23 11:40 60 19 97 12/09/23 11:30 74 9 L 86 L 12/09/23 11:20 60 19 96 12/09/23 11:10 60 18 97 12/09/23 11:00 60 22 98 12/09/23 11:00 135/75 12/09/23 11:00 60 18 135/75 96 12/09/23 10:50 60 21 94 12/09/23 10:40 66 31 H 92 12/09/23 10:30 25 H 97 12/09/23 10:20 72 20 98 12/09/23 10:13 76 22 97 12/09/23 10:13 142/87 H 12/09/23 10:11 142/72 H 12/09/23 10:11 74 18 97 12/09/23 10:10 67 19 97 12/09/23 10:00 71 24 99 12/09/23 09:50 69 19 97 12/09/23 09:40 29 H 97 12/09/23 09:30 87 19 96 12/09/23 09:20 71 18 99 12/09/23 09:19 72 18 136/107 H 100 12/09/23 09:10 67 18 97 12/09/23 09:01 97 H 9 L 99 12/09/23 09:01 136/107 H 12/09/23 09:00 20 94 12/09/23 08:50 86 21 98 12/09/23 08:40 60 15 99 12/09/23 08:30 60 14 99 12/09/23 08:20 60 14 100 12/09/23 08:10 60 17 99 12/09/23 08:00 144/78 H 12/09/23 08:00 67 21 96 12/09/23 07:52 61 12/09/23 07:50 60 15 98 12/09/23 07:40 77 27 H 95 12/09/23 07:30 62 15 99 12/09/23 07:20 60 18 98 12/09/23 07:10 60 17 98 12/09/23 07:00 149/74 H 12/09/23 07:00 62 17 100 12/09/23 06:50 60 8 L 97 12/09/23 06:40 64 0 L 98 O2 Del Method 12/09/23 16:19 Room Air 12/09/23 14:48 Room Air 12/09/23 13:30 12/09/23 13:20 12/09/23 13:10 12/09/23 13:00 12/09/23 12:50 12/09/23 12:40 12/09/23 12:32 12/09/23 12:10 12/09/23 12:00 12/09/23 11:50 12/09/23 11:40 12/09/23 11:30 12/09/23 11:20 12/09/23 11:10 12/09/23 11:00 12/09/23 11:00 12/09/23 11:00 Room Air 12/09/23 10:50 12/09/23 10:40 12/09/23 10:30 12/09/23 10:20 12/09/23 10:13 12/09/23 10:13 12/09/23 10:11 12/09/23 10:11 12/09/23 10:10 12/09/23 10:00 12/09/23 09:50 12/09/23 09:40 12/09/23 09:30 12/09/23 09:20 12/09/23 09:19 Room Air 12/09/23 09:10 12/09/23 09:01 12/09/23 09:01 12/09/23 09:00 12/09/23 08:50 12/09/23 08:40 12/09/23 08:30 12/09/23 08:20 12/09/23 08:10 12/09/23 08:00 12/09/23 08:00 12/09/23 07:52 12/09/23 07:50 12/09/23 07:40 12/09/23 07:30 12/09/23 07:20 12/09/23 07:10 12/09/23 07:00 12/09/23 07:00 12/09/23 06:50 12/09/23 06:40 Laboratory Results WBC 7.13, HGB 12.3, HCT 36.0, Plts 212, Na 143, Potassium 3.2, Chloride 109, Carbon dioxide 27, BUN 11, Creatinine 0.57, Glucose 95, A1C 5.4, Calcium 8.4, Troponin 17.3, LDL 38, B12 328, folate 18, Urinalysis 1+ leukocyte esterase, negative nitrite, urine wbc 10-30 Diagnostic Findings CXR:No acute chest disease. Cardiomegaly is noted. CTH:No acute intracranial hemorrhage, evidence of acute territorial infarction, or other acute intracranial disease process. CTA head/neck: No occlusion, hemodynamically significant stenosis, or dissection in the major cervical arteries. 3. No occlusion, hemodynamically significant stenosis, aneurysm, dissection, or arteriovenous malformation in the major intracranial arteries. TTE: 55%, normal sized left atrium, no ASD, PFO, or interatrial shunt
[2023-12-10 06:17] LABS: Basophils # (auto) 0.03 K/uL (0.00-0.20); Basophils % (auto) 0.4 %; Eosinophils # (auto) 0.24 K/uL (0.00-0.50); Eosinophils % (auto) 3.3 %; Hematocrit (blood only) 36.3 % (37.0-47.0); Hemoglobin 12.3 g/dl (12.0-16.0); Immature Granulocytes # (auto) 0.01 K/uL (0.01-0.20); Immature Granulocytes % (auto) 0.1 %; Lymphocytes # (auto) 0.92 K/uL (1.20-3.40); Lymphocytes % (auto) 12.5 %; Mean Corpuscular Hemoglobin 33.1 pg (25.0-34.0); Mean Corpuscular Hgb Conc 33.9 g/dL (32.0-36.0); Mean Corpuscular Volume 97.6 fL (80.0-100.0); Monocytes # (auto) 0.69 K/uL (0.11-0.59); Monocytes % (auto) 9.4 %; Neutrophils # (auto) 5.45 K/uL (1.40-6.50); Neutrophils % (auto) 74.3 %; Platelet Count 225 K/uL (130-400); RDW Coefficient of Variation 12.2 % (11.5-14.5); RDW Standard Deviation 43.7 fL (36.4-46.3); Red Blood Count 3.72 M/uL (4.20-5.40); White Blood Count 7.34 K/ul (4.8-10.8)
[2023-12-10 07:13] LABS: BUN Creatinine Ratio 28.3 (10-20); Calcium 8.8 mg/dl (8.6-10.3); Creatinine Clr Calc Pharmacy 77.4 ml/min; Est GFR (African American) 102.6 ml/min; Est GFR (Non-African American) 88.5 ml/min; Magnesium 1.7 mg/dl (1.7-2.4); Phosphorus 3.5 mg/dl (2.5-4.9); Potassium 3.8 mmol/L (3.5-5.1)
[2023-12-10] MEDS: GADOBUTROL 65ML VIAL IV ONE (14:06)
--- NOTE | 2023-12-10 14:24 | Hospitalist Progress Note ---
Date of Service December 10, 2023 Assessment & Plan (1) Stroke-like symptoms: Plan: Ms. Rendon is a 78-year-old female with past med history significant for hyperlipidemia, vasculitis, hypertension, history of second-degree heart block s/p pacemaker, aortic valve disorder, obesity, carpal tunnel syndrome, rheumatoid arthritis involving multiple sites with positive rheumatoid factor, comes because of lightheadedness and ambulatory dysfunction since last Friday. She used to ambulate without support prior to the episode. Now she feels little imbalance and is requiring assistance. She went to [facility] on last Friday. She was given meclizine but did not help much. There was a plan for MRI scan; however, she left AMA and presented to ED on 12/07. Patient with no focal deficits, but mostly symptoms occur with sitting up and standing. Not vertiginous and not with laying still. Strokelike symptoms Lightheadedness and ambulatory dysfunction CT head, CTA head and neck unremarkable for stenosis Patient has pacemaker, interrogated and turned off for MRI MRI on 12/09- noted no acute findings Orthostatic vital signs ordered for repeat in AM Stroke protocol B12 and folate levels normal Lyme screen negative, as well as anaplasma and babesia, DNA testing pending Neurology consulted, appreciate recs -aspirin 81mg -continue home statin and zetia -PT/OT recommending home, continued PT services -speech no concern for aspiration Improving hypokalemia replete as needed Abnormal UA UA suggestive of infection, urine Cx with no significant growth Repeat UA ordered Consider empiric treatment especially if pt symptomatic Elevated trop Demand ischemia Cardiomegaly Trop elevated and downtrending from 21.7 to 35.1 to 27.0 Likely in setting of acute process EKG noting paced rhythm Echo with EF 55%, noted LVH, grade 1 diastolic dysfunction, no PFO/shunt Doubt ACS Ketonuria Noted on presenting UA Suggestive of dehydration Push fluids, UA repeated as above Hyperglycemia Glucose levels elevated [id number] Hyperlipidemia On Zetia and statin, continue Hypertension Continue valsartan and hydrochlorothiazide Will monitor 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 States that she is still unsteady on her feet, but improving. Later called pt on phone to discuss unremarkable MRI. Agreeable to Lyme testing and possible d/c in AM with PT/OT services. Review of Systems Review of Systems: All systems reviewed & are unremarkable except as noted in Subjective Physical Exam Physical Exam: General: Alert, oriented. No acute distress Skin: No noted rashes or bruises Psych: Appropriate mood and affect Neuro: No gross deficits HEENT: NC/AT, PERRLA, EOMI, oropharynx moist. Chest: Nontender to palpation. CV: RRR, + murmur appreciated Resp: Breath sounds clear bilaterally, no increased effort of breathing. Abdomen: Soft, nontender, nondistended. No guarding. No organomegaly appreciated. Extremities: No edema in lower extremities bilaterally. Results & Data Results & Data Vital Signs (Past 12 Hours) Vital Signs Temp Pulse Resp BP Pulse Ox O2 Del Method 12/10/23 12:26 37.0 C 61 18 132/62 96 Room Air 12/10/23 07:34 36.8 C 62 18 152/65 H 96 Room Air 12/10/23 03:00 36.7 C 67 19 147/82 H 99 Room Air
--- NOTE | 2023-12-10 14:40 | Magnetic Resonance Report ---
MRI OF THE BRAIN COMBO CLINICAL HISTORY: Strokelike symptoms. COMPARISON STUDY: CT of the brain dated 12/08/2023. TECHNIQUE: MRI of the brain was performed utilizing various T1 and T2-weighted sequences in the axial , sagittal, and coronal planes. Contrast-enhanced sequences were acquired following the administratio n of 8.5 cc of Gadavist. FINDINGS: Brain parenchyma: There is age-related involutional change noting mild subcortical and periventricula r microangiopathic disease. There is no hemorrhage or mass effect. There is no restricted diffusion t o suggest acute ischemia. No enhancing mass lesion is identified on the postcontrast images. Montero-whi te matter differentiation is preserved. Mineralization is noted in the basal ganglia. No extra-axial fluid collection is seen. The cerebellar tonsils are normal in configuration. Ventricles, sulci, and cisterns: Prominent secondary to involutional change. Pituitary and sella: Unremarkable. Intracranial vasculature: Normal flow voids are maintained at the skull base. Orbits: The bony orbits are grossly intact. Orbital contents are normal in appearance noting bilatera l ocular lens implants. Sinuses and mastoids: Clear. Calvarium: Unremarkable. Cervical cord: Partially visualized cervical spinal cord is normal in morphology and signal intensity . IMPRESSION: No acute intracranial abnormality. ACT 112: Negative or not required by law. Electronically signed by: Gideon Pretty M.D. 12/10/2023 2:39 PM
--- NOTE | 2023-12-10 15:13 | Electrocardiogram Report ---
Test Reason : Blood Pressure : / mmHG Vent. Rate : 083 BPM Atrial Rate : 083 BPM P-R Int : 244 ms QRS Dur : 186 ms QT Int : 454 ms P-R-T Axes : 050 -43 122 degrees QTc Int : 533 ms Atrial-sensed ventricular-paced rhythm with prolonged AV conduction Abnormal ECG No previous ECGs available Confirmed by Moody De Souza ([id number]) on 12/10/2023 3:13:22 PM Referred By: REFERRED SELF Confirmed By:Moody De Souza
[2023-12-10] MEDS: ASPIRIN 81 MG ECTAB PO SCH (17:49)
[2023-12-11 07:11] LABS: Hemoglobin 12.2 g/dl (12.0-16.0); Mean Corpuscular Hemoglobin 32.8 pg (25.0-34.0); Mean Corpuscular Hgb Conc 33.9 g/dL (32.0-36.0); Mean Corpuscular Volume 96.8 fL (80.0-100.0); Mean Platelet Volume 11.8 fL (9.4-12.4); Platelet Count 206 K/uL (130-400); RDW Coefficient of Variation 11.9 % (11.5-14.5); RDW Standard Deviation 42.6 fL (36.4-46.3); Red Blood Count 3.72 M/uL (4.20-5.40); White Blood Count 6.93 K/ul (4.8-10.8)
[2023-12-11 07:27] LABS: BUN Creatinine Ratio 31.6 (10-20); Calcium 8.7 mg/dl (8.6-10.3); Creatinine Clr Calc Pharmacy 81.4 ml/min; Est GFR (African American) 104.4 ml/min; Magnesium 1.7 mg/dl (1.7-2.4); Potassium 3.9 mmol/L (3.5-5.1)
[2023-12-11 08:18] VITALS: RESP 18
[2023-12-11 08:42] LABS: Appearance Urine Clear (Clear); Bacteria Urine Automated Negative (Negative); Bilirubin Urine Negative (Negative); Blood Urine Negative (Negative); Cast Urine Automated 0 /lpf (0-5); Color Urine Yellow; Epithelial Cell Urine Auto >30 /lpf (0-5); Glucose Urine UA Negative (Negative); Ketones Urine Negative (Negative); Leukocyte Esterase Urine 1+ (Negative); Nitrite Urine Negative (Negative); Protein Urine Negative (Negative); RBC Urine Automated 0-4 /hpf (0-4); Specific Gravity Urine 1.011 (1.000-1.030); Urobilinogen Urine Negative (Negative)
[2023-12-11] MEDS: ENOXAPARIN INJ 40 MG/0.4 ML SYR SQ SCH (09:04)
[2023-12-11 09:09] VITALS: PULSE 60
[2023-12-11 12:07] VITALS: BP 118/71; TEMP 98.6; O2SAT 96
--- NOTE | 2023-12-11 14:11 | Discharge Summary ---
Discharge Summary Date of Service December 11, 2023 Notes For Next Care Provider Please ensure close follow up with Neurology Medication Changes From Visit aspirin 81mg daily Continue home ezetimibe and statin Admission HPI Per Admitting Provider 78-year-old female with past med history significant for hyperlipidemia, vasculitis, hypertension, history of second-degree heart block s/p pacemaker, aortic valve disorder, obesity, carpal tunnel syndrome, rheumatoid arthritis involving multiple sites with positive rheumatoid factor, comes because of lightheadedness and ambulatory dysfunction since last Friday. She used to ambulate without support prior to the episode. Now she feels little imbalance and is requiring assistance. She went to [facility] on last Friday. She was given meclizine but did not help much. There is a plan for MRI scan. But as MRI was not done still she signed out AMA today afternoon at [facility] and came here. Denies any headache. No blurred visions. No earache. No runny nose or sore throat. No cough. No recent fevers. No difficulty swallowing. No chest pain or shortness of breath. No nausea. No abdominal pain. Normal bowel and bladder movements. Currently resting comfortably and hemodynamic stable. Past medical history. As mentioned above. Past surgical history. Arthrocentesis. Right carpal tunnel surgery. S/p pacemaker. Partial hysterectomy. Social history. . No smoking. No alcohol use. No drug use. Family history. Maternal cousin had breast cancer. Father had CAD. Mother had CAD. Admission Exam Per Admitting Provider General- Not in distress Head- atraumatic Eyes- PERRL. ENT- oropharynx clear Neck- supple, no JVD. Lungs- clear to auscultation no wheezing or crackles. Heart- regular rhythm; no murmur, no gallop. Abdomen- normal bowel sounds, soft, nontender, no distension Extremities- no pretibial edema, no erythema seen Neuro- alert, oriented PERRL, ; no facial palsy; no dysarthria; motor 5/5 bilaterally; coordination of movements normal, no pronator drift, sensations intact, position sense intact. Skin- warm & dry Principal Dx & Hospital Course #1 = Principal Diagnosis (1) Stroke-like symptoms: Ms. Rendon is a 78-year-old female with past med history significant for hyperlipidemia, vasculitis, hypertension, history of second-degree heart block s/p pacemaker, aortic valve disorder, obesity, carpal tunnel syndrome, rheumatoid arthritis involving multiple sites with positive rheumatoid factor, who presents with lightheadedness and ambulatory dysfunction since last Friday. Ambulates without support at baseline. She went to [facility] Friday [employer]. She was given meclizine but did not help much. There was a plan for MRI scan; however, she left AMA and presented to [facility] ED on 12/07. Patient with no focal deficits, but mostly symptoms occur with sitting up and standing. Not vertiginous and does not occur with laying still. Strokelike symptoms Lightheadedness and ambulatory dysfunction CT head, CTA head and neck unremarkable for stenosis Patient has pacemaker, interrogated in the ED without acute findings MRI on 12/09- noted no acute findings Orthostatic vital signs unremarkable at time of discharge Stroke protocol employed, echo, PT/OT/Speech B12 and folate levels normal Lyme screen negative, as well as anaplasma and babesia, DNA testing for the same pending Neurology consulted, appreciate recs -aspirin 81mg -continue home statin and zetia -PT/OT recommending home -speech with no concern for aspiration Symptoms were improved on discharge Discharged with aspirin 81mg for daily use Close Neurology and PCP follow up on discharge hypokalemia repleted as needed Abnormal UA UA with leukocyte esterase but no noted bacteria, urine Cx with no significant growth Repeat UA ordered and was unremarkable No empiric treatment needed Elevated trop Demand ischemia Cardiomegaly Trop elevated and downtrending from 21.7 to 35.1 to 27.0 Likely in setting of acute process EKG noting paced rhythm Echo with EF 55%, noted LVH, grade 1 diastolic dysfunction, no PFO/shunt Doubt ACS Ketonuria Noted on presenting UA Suggestive of dehydration Puh fluids, pt should remain hydrated. 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 No acute distress Skin: No noted rashes or bruises Psych: Appropriate mood and affect Neuro: No gross deficits HEENT: NC/AT, PERRLA, EOMI, oropharynx moist. Chest: Nontender to palpation. CV: RRR, + murmur appreciated Resp: Breath sounds clear bilaterally, no increased effort of breathing. Abdomen: Soft, nontender, nondistended. No guarding. No organomegaly appreciated. Extremities: No edema in lower extremities bilaterally. Updated Medication List Medication Instructions Recorded Confirmed Type calcium 1,000 mg PO DAILY 12/08/23 12/08/23 History cholecalciferol (vitamin D3) 50 50 mcg PO DAILY 12/08/23 12/08/23 History mcg (2,000 unit) tablet (Vitamin D3) ezetimibe 10 mg tablet (Zetia) 10 mg PO DAILY 12/08/23 12/08/23 History ferrous sulfate 325 mg (65 mg 325 mg PO TID 12/08/23 12/08/23 History iron) tablet (Iron (ferrous sulfate)) hydrochlorothiazide 12.5 mg tablet 6.25 mg PO DAILY 12/08/23 12/08/23 History metoprolol succinate 25 mg 25 mg PO DAILY 12/08/23 12/08/23 History tablet,extended release 24 hr rosuvastatin 10 mg tablet 10 mg PO DAILY 12/08/23 12/08/23 History upadacitinib 15 mg tablet,extended 15 mg PO DAILY 12/08/23 12/08/23 History release 24 hr (Rinvoq) valsartan 320 mg tablet 320 mg PO DAILY 12/08/23 12/08/23 History aspirin 81 mg tablet,delayed 81 mg PO QAM #30 tabs 12/11/23 Rx release Hospital Stay Data Consultations 12/08/23 20:47 ED Decision to Admit Stat 12/09/23 08:00 Consult Neurology Routine Diagnostic Imagining Performed 12/08/23 16:49 CT head/brain wo con Stat CTA head w con [CT angio head w con] Stat CTA neck with con [CT angio neck with con] Stat 12/10/23 13:05 MR brain wo/w con Routine Chest X-Ray 12/08/23 16:49 XR chest 1V portable CLINICAL HISTORY: Chest pain, nonspecific TECHNIQUE: Single frontal radiograph of the chest was obtained. Comparison: None available at the time of this dictation. FINDINGS: An implanted pacemaker is seen. Cardiomegaly is noted. The lungs are clear. No evidence of pleural effusion or pneumothorax. IMPRESSION: No acute chest disease. Cardiomegaly is noted. ACT 112: Negative or not required by law. Electronically signed by: Bowen John M.D. 12/08/2023 5:[address] 12/08/23 16:49 CT angio neck with con, CT head/brain wo con, CT angio head w con CLINICAL HISTORY: Dizziness TECHNIQUE: Contiguous axial CT images of the head were acquired from the base of the skull to the vertex without intravenous contrast administration. CT angiography of the head and neck was performed following intravenous administration of iodinated contrast. Coronal and sagittal MIPS were obtained from the axial data set and were submitted for review. Automated dose lowering techniques and/or adjustment according to patient size were utilized for this examination. All measurements were calculated based on NASCET criteria. CT DOSE: 873.74 mGy.cm Comparison: None available at the time of this dictation. FINDINGS: CT head: There is no acute intracranial hemorrhage or evidence of acute territorial infarction. No shift of the midline structures, mass effect, or extra-axial abnormalities are shown. Small thyroid nodules are seen which do not require follow-up by ACR criteria. Scarring is seen in the bilateral apices. CTA Neck: A 3 vessel aortic arch is shown. There is no significant atherosclerotic plaque in the aortic arch or the origins of the innominate, left common carotid, and left subclavian arteries. The common carotid, external carotid, cervical segments of the internal carotid arteries, and the cervical segments of the vertebral arteries are patent without hemodynamically significant stenosis. The left vertebral artery is dominant. Tortuous course of the bilateral carotid arteries noted. CTA Head: The anterior and posterior cerebral circulations are patent. origin of the left posterior cerebral artery is seen. IMPRESSION: 1. No acute intracranial hemorrhage, evidence of acute territorial infarction, or other acute intracranial disease process. 2. No occlusion, hemodynamically significant stenosis, or dissection in the major cervical arteries. 3. No occlusion, hemodynamically significant stenosis, aneurysm, dissection, or arteriovenous malformation in the major intracranial arteries. Assessment of stenosis of the internal carotid arteries is based on NASCET criteria. ACT 112: Negative or not required by law. Electronically signed by: Bowen John M.D. 12/08/2023 6:56 PM Head CTA 12/08/23 16:49 CT angio neck with con, CT head/brain wo con, CT angio head w con CLINICAL HISTORY: Dizziness TECHNIQUE: Contiguous axial CT images of the head were acquired from the base of the skull to the vertex without intravenous contrast administration. CT angiography of the head and neck was performed following intravenous administration of iodinated contrast. Coronal and sagittal MIPS were obtained from the axial data set and were submitted for review. Automated dose lowering techniques and/or adjustment according to patient size were utilized for this examination. All measurements were calculated based on NASCET criteria. CT DOSE: 873.74 mGy.cm Comparison: None available at the time of this dictation. FINDINGS: CT head: There is no acute intracranial hemorrhage or evidence of acute territorial infarction. No shift of the midline structures, mass effect, or extra-axial abnormalities are shown. Small thyroid nodules are seen which do not require follow-up by ACR criteria. Scarring is seen in the bilateral apices. CTA Neck: A 3 vessel aortic arch is shown. There is no significant atherosclerotic plaque in the aortic arch or the origins of the innominate, left common carotid, and left subclavian arteries. The common carotid, external carotid, cervical segments of the internal carotid arteries, and the cervical segments of the vertebral arteries are patent without hemodynamically significant stenosis. The left vertebral artery is dominant. Tortuous course of the bilateral carotid arteries noted. CTA Head: The anterior and posterior cerebral circulations are patent. origin of the left posterior cerebral artery is seen. IMPRESSION: 1. No acute intracranial hemorrhage, evidence of acute territorial infarction, or other acute intracranial disease process. 2. No occlusion, hemodynamically significant stenosis, or dissection in the major cervical arteries. 3. No occlusion, hemodynamically significant stenosis, aneurysm, dissection, or arteriovenous malformation in the major intracranial arteries. Assessment of stenosis of the internal carotid arteries is based on NASCET criteria. ACT 112: Negative or not required by law. Electronically signed by: Bowen John M.D. 12/08/2023 6:56 PM Neck CTA 12/08/23 16:49 CT angio neck with con, CT head/brain wo con, CT angio head w con CLINICAL HISTORY: Dizziness TECHNIQUE: Contiguous axial CT images of the head were acquired from the base of the skull to the vertex without intravenous contrast administration. CT angiography of the head and neck was performed following intravenous administration of iodinated contrast. Coronal and sagittal MIPS were obtained from the axial data set and were submitted for review. Automated dose lowering techniques and/or adjustment according to patient size were utilized for this examination. All measurements were calculated based on NASCET criteria. CT DOSE: 873.74 mGy.cm Comparison: None available at the time of this dictation. FINDINGS: CT head: There is no acute intracranial hemorrhage or evidence of acute territorial infarction. No shift of the midline structures, mass effect, or extra-axial abnormalities are shown. Small thyroid nodules are seen which do not require follow-up by ACR criteria. Scarring is seen in the bilateral apices. CTA Neck: A 3 vessel aortic arch is shown. There is no significant atherosclerotic plaque in the aortic arch or the origins of the innominate, left common carotid, and left subclavian arteries. The common carotid, external carotid, cervical segments of the internal carotid arteries, and the cervical segments of the vertebral arteries are patent without hemodynamically significant stenosis. The left vertebral artery is dominant. Tortuous course of the bilateral carotid arteries noted. CTA Head: The anterior and posterior cerebral circulations are patent. origin of the left posterior cerebral artery is seen. IMPRESSION: 1. No acute intracranial hemorrhage, evidence of acute territorial infarction, or other acute intracranial disease process. 2. No occlusion, hemodynamically significant stenosis, or dissection in the major cervical arteries. 3. No occlusion, hemodynamically significant stenosis, aneurysm, dissection, or arteriovenous malformation in the major intracranial arteries. Assessment of stenosis of the internal carotid arteries is based on NASCET criteria. ACT 112: Negative or not required by law. Electronically signed by: Bowen John M.D. 12/08/2023 6:56 PM Brain MRI 12/10/23 13:05 MRI OF THE BRAIN COMBO CLINICAL HISTORY: Strokelike symptoms. COMPARISON STUDY: CT of the brain dated 12/08/2023. TECHNIQUE: MRI of the brain was performed utilizing various T1 and T2-weighted sequences in the axial, sagittal, and coronal planes. Contrast-enhanced sequences were acquired following the administration of 8.5 cc of Gadavist. FINDINGS: Brain parenchyma: There is age-related involutional change noting mild subcortical and periventricular microangiopathic disease. There is no hemorrhage or mass effect. There is no restricted diffusion to suggest acute ischemia. No enhancing mass lesion is identified on the postcontrast images. Montero-white m atter differentiation is preserved. Mineralization is noted in the basal ganglia. No extra-axial fluid collection is seen. The cerebellar tonsils are normal in configuration. Ventricles, sulci, and cisterns: Prominent secondary to involutional change. Pituitary and sella: Unremarkable. Intracranial vasculature: Normal flow voids are maintained at the skull base. Orbits: The bony orbits are grossly intact. Orbital contents are normal in appearance noting bilateral ocular lens implants. Sinuses and mastoids: Clear. Calvarium: Unremarkable. Cervical cord: Partially visualized cervical spinal cord is normal in morphology and signal intensity. IMPRESSION: No acute intracranial abnormality. ACT 112: Negative or not required by law. Electronically signed by: Gideon Pretty M.D. 12/10/2023 2:39 PM Discharge Instructions Given to Patient (Per Discharging Provider) Ms. Rendon, You presented with concerning symptoms and we determined that you did not have a stroke. Your MRI brain did not show a cause of your symptoms as well as the multiple tests we did. Your symptoms have improved and we are discharging you home. You were seen by the Neurologist and they are recommending that you continue with the baby aspirin and your home medications for high cholesterol. They would also like to follow up with you after discharge. Please keep close follow up with your primary care provider after discharge. Please do not hesitate to come back to the emergency room if your symptoms worsen or return. It was a pleasure taking care of you while you were here. Total Time Total Time Spent Total Time Spent (In Minutes): > 30 minutes
[2023-12-14 03:12] LABS: Babesia microti DNA Not Detected (Not Detected)
== END 2023-12-11 15:11 | disposition home or self-care (01) | DRG 92 ==
LOC: ED 16:37 → EDINP 21:57 → SUATTDRO 21:57 → 4W 22:52
DX: M06.9 Rheumatoid arthritis, unspecified; E87.6 Hypokalemia; E78.5 Hyperlipidemia, unspecified; R27.0 Ataxia, unspecified; R82.90 Unspecified abnormal findings in urine; I24.89 Other forms of acute ischemic heart disease; E86.0 Dehydration; I77.6 Arteritis, unspecified; I44.1 Atrioventricular block, second degree; R73.9 Hyperglycemia, unspecified; Z95.0 Presence of cardiac pacemaker; I10 Essential (primary) hypertension